=== PATIENT | male | born 1940 | race Caucasian/White ===

== ENCOUNTER 2023-05-07 15:56 | Inpatient (IN) ==
--- NOTE | 2023-05-07 16:04 | ED Triage Note ---
Date of Service May 07, 2023 History of Present Illness This patient was briefly evaluated while in triage. An abbreviated physical exam was performed. This patient is a 82-year-old Male who presents to the ED for evaluation of inability to see out of his right eye. He was seen at the [place] [facility], and re ferred to the emergency department to rule out CVA. The patient reports that he did have pinkeye last week, and has been taking eyedrops as prescribed. The patient reports fatigue. He denies any weakness of the right side of his body, difficulty with swallowing or speech. Physical Exam CONSTITUTIONAL: Healthy and well nourished. Patient does not appear in any acute distress. Alert and oriented x3. GCS 15 HEENT: Examination of the eyes does not show any conjunctival injection. Pupils are sluggish to light, but equal in appearance. Patient has a disconjugate gaze that the patient reports is baseline. RESPIRATORY: Clear to auscultation bilaterally with no wheezing, crackles, rhonchi or stridor. CARDIOVASCULAR: Regular rate and rhythm with no murmurs, rubs or gallops. INTEGUMENTARY: No rash or other significant dermatologic conditions noted. HEMATOLOGIC: No ecchymosis or petechiae. PSYCHIATRIC: Positive affect. NEUROLOGIC: No focal neurologic deficits noted. Initial orders for labs and / or imaging were placed and patient was placed in the waiting area until a bed is available. Please see further documentation for the full ED course.
[2023-05-07 17:06] LABS: Basophils # (auto) 0.03 K/uL (0.00-0.20); Basophils % (auto) 0.3 %; Eosinophils # (auto) 0.13 K/uL (0.00-0.50); Eosinophils % (auto) 1.5 %; Hematocrit (blood only) 34.6 % (42.0-52.0); Hemoglobin 11.6 g/dl (14.0-18.0); Immature Granulocytes # (auto) 0.09 K/uL (0.01-0.20); Lymphocytes # (auto) 0.92 K/uL (1.20-3.40); Lymphocytes % (auto) 10.5 %; Mean Corpuscular Hemoglobin 29.2 pg (25.0-34.0); Mean Corpuscular Hgb Conc 33.5 g/dL (32.0-36.0); Mean Corpuscular Volume 87.2 fL (80.0-100.0); Mean Platelet Volume 8.9 fL (9.4-12.4); Monocytes # (auto) 0.27 K/uL (0.11-0.59); Monocytes % (auto) 3.1 %; Neutrophils # (auto) 7.34 K/uL (1.40-6.50); Neutrophils % (auto) 83.6 %; Platelet Count 434 K/uL (130-400); RDW Coefficient of Variation 14.9 % (11.5-14.5); RDW Standard Deviation 47.7 fL (36.4-46.3); Red Blood Count 3.97 M/uL (4.70-6.10); White Blood Count 8.78 K/ul (4.8-10.8)
--- NOTE | 2023-05-07 17:10 | CT Scan Report ---
CT SCAN OF THE BRAIN WITHOUT IV CONTRAST CLINICAL HISTORY: Right-sided visual disturbances. COMPARISON STUDY: No priors. TECHNIQUE: Unenhanced axial CT scan of the brain is performed from the vertex to the skull base. A do se lowering technique was utilized adhering to the principles of ALARA. CT DOSE: 625.80 mGy.cm FINDINGS: Brain parenchyma: There is age-related involutional change noting mild to moderate subcortical and pe riventricular microangiopathic disease. There is no hemorrhage, mass effect, or evidence of acute ter ritorial ischemia by CT criteria. Reyes-white matter differentiation is preserved. No extra-axial flui d collection is seen. Ventricles, sulci, cisterns: Prominent secondary to involutional change. Intracranial vasculature: There is atherosclerotic calcification of the cavernous carotid and vertebr al arteries. Calvarium: Unremarkable. Sinuses and mastoids: The visualized paranasal sinuses are clear. The mastoid air cells are well pneu matized. Orbits: The bony orbits are grossly intact. Soft tissues: Soft tissue calcifications are noted in both ears. IMPRESSION: There is no hemorrhage, mass effect, or evidence of acute territorial ischemia by CT tahmina duran. ACT 112: Negative or not required by law. Electronically signed by: Fabiano Lombardo M.D. 05/07/2023 5:07 PM
[2023-05-07 17:13] LABS: Albumin Globulin Ratio 0.9 (0.9-2); Albumin Level 3.7 gm/dl (3.4-5.0); BUN Creatinine Ratio 21.3 (10-20); Bilirubin,Total 0.4 mg/dl (0.2-1.0); Creatinine Clr Calc Pharmacy 60.3 ml/min; Est GFR (African American) 97.1 ml/min; Est GFR (Non-African American) 83.8 ml/min; Globulin 4.2 gm/dl (2.5-4.0); Potassium 4.4 mmol/L (3.5-5.1); Total Protein 7.9 gm/dl (6.0-8.3)
[2023-05-07 17:19] LABS: Troponin I High Sensitivity 14.3 pg/ml (0-20)
[2023-05-07 17:27] LABS: Prothrombin Time 11.4 Seconds (9.0-12.0)
--- NOTE | 2023-05-07 18:16 | XRay Report ---
XR chest 1V portable CLINICAL HISTORY: Visual disturbance COMPARISON STUDY: No previous studies for comparison. FINDINGS: Lung volumes are normal. Lungs are clear. There is no pneumothorax or pleural effusion. Car diac size is normal. There is mild prominence for the contour of the ascending aorta. There is no ned dence for pulmonary edema. Multiple old, healed left rib fractures are incidentally noted. IMPRESSION: No acute cardiopulmonary findings. ACT 112: Negative or not required by law. Electronically signed by: Humberto Garza M.D. 05/07/2023 6:15 PM
[2023-05-07 18:20] LABS: Lyme Ab IgG w/WB Rflx Positive (Negative); Lyme Ab IgM w/WB Rflx Positive (Negative)
[2023-05-07] MEDS ORDERED: SODIUM CHLORIDE 0.9% 500 ML IV ONE (20:31)
[2023-05-07 20:51] LABS: Magnesium 2.2 mg/dl (1.7-2.4)
[2023-05-07] MEDS ORDERED: IOVERSOL 350 MG 125mL Prefilled Syringe IV ONE (21:45)
--- NOTE | 2023-05-07 21:58 | CT Scan Report ---
Exam(s): CTA HEAD With Contrast EXAM: CT Angiography Head With Intravenous Contrast CLINICAL HISTORY: Reason for exam: two weeks of vision change, r/o cva. TECHNIQUE: Axial computed tomographic angiography images of the head with intravenous contrast. CTDI is 11.56 mGy and DLP is 422.43 mGy-cm. Automated exposure control was utilized for the study. A dose lowering technique was utilized adhering to the principles of ALARA. MIP reconstructed images were created and reviewed. CONTRAST: Contrast must be dictated COMPARISON: No relevant prior studies available. FINDINGS: Right internal carotid artery: No acute findings. Intracranial segment is patent with no significant stenosis. No aneurysm. 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 No occlusion or significant stenosis. Right middle cerebral artery: Unremarkable. No occlusion or significant stenosis. No aneurysm. Right posterior cerebral artery: Unremarkable. No occlusion or significant stenosis. No aneurysm. Right vertebral artery: Unremarkable as visualized. Left internal carotid artery: No acute findings. Intracranial segment is patent with no significant stenosis. No aneurysm. Left anterior cerebral artery: See above. Left middle cerebral artery: Unremarkable. No occlusion or significant stenosis. No aneurysm. Left posterior cerebral artery: Unremarkable. No occlusion or significant stenosis. No aneurysm. Left vertebral artery: Unremarkable as visualized. Basilar artery: Unremarkable. No occlusion or significant stenosis. No aneurysm. 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 No large vessel occlusion. Electronically signed by: Yazan De Luna MD 05/07/23 21:57 PM
--- NOTE | 2023-05-07 22:15 | CT Scan Report ---
Exam(s): CTA NECK With Contrast IV Amt: 116 optiray 350 EXAM: CT Angiography Neck With Intravenous Contrast CLINICAL HISTORY: Reason for exam: two weeks of vision change, r/o cva. TECHNIQUE: Routine carotid CT angiography protocol was performed with intravenous contrast. NASCET criteria using the distal ICAs for comparison were used for evaluation of stenoses. CTDI is 11.56 mGy and DLP is 422.43 mGy-cm. Automated exposure control was utilized for the study. A dose lowering technique was utilized adhering to the principles of ALARA. MIP reconstructed images were created and reviewed. CONTRAST: Patient received 116 optiray 350 of IV contrast COMPARISON: None. FINDINGS: Right common carotid artery: Patent. Right internal carotid artery: Patent. Right vertebral artery: Patent. Left common carotid artery: Patent. Left internal carotid artery: Patent. Left vertebral artery: Patent. Codominant. Other: Mild to moderate atherosclerosis bilateral carotid bifurcation, without significant stenosis. Large ulcerative (high risk) atherosclerotic plaque of the aortic arch, after the subclavian origin. Aorta is incompletely evaluated. IMPRESSION: 1. No dissection, occlusion, or significant stenosis. 2. 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 CAROTID STENOSIS REFERENCE USING NASCET CRITERIA: % ICA stenosis = (1 - narrowest ICA diameter/diameter of distal cervical ICA) x 100. Mild - <50% stenosis. Moderate - 50-69% stenosis. Severe - 70-94% stenosis. Near occlusion - 95-99% stenosis. Occluded - 100% stenosis. Electronically signed by: Kalli Kraus M.D. 05/07/23 22:14 PM
[2023-05-07] MEDS ORDERED: cefTRIAXone SODIUM 2,000 MG/70 ML BAG IV STA (22:31)
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
[2023-05-08] MEDS ORDERED: NITROGLYCERIN SL 0.4 MG/TAB TAB SL PRN (01:24)
[2023-05-08] MEDS ORDERED: PHARMACIST DISCHARGE MED REC CONSULT PRN (01:24)
[2023-05-08] MEDS ORDERED: POLYETHYLENE (MIRALAX) 17 GM PACK PO PRN (01:24)
[2023-05-08] MEDS ORDERED: ACETAMINOPHEN 325 MG TAB PO PRN (01:24)
[2023-05-08] MEDS ORDERED: ASPIRIN 81 MG CHEW PO ONE (01:24)
[2023-05-08] MEDS ORDERED: SODIUM CHLORIDE 0.9% 1,000 ML IV SCH (01:24)
--- NOTE | 2023-05-08 03:52 | Emergency Department Note ---
Impression & Plan Cranial nerve III palsy, partial, right, Dysconjugate gaze, Lyme disease ED Provider Note NAME: ENA KANG AGE: 82 SEX: M ARRIVES VIA: Walk-In INFORMANT: Patient ED PROVIDER(S): Fransisco Crowder MD CHIEF COMPLAINT: Vision changes referred PLAN: Disposition: Admit MEDICAL DECISION MAKING: The patient is a pleasant 82-year-old gentleman who presents to the emergency department via walk-in for evaluation of vision changes that he reports has been ongoing for the past 2 weeks. He reports he was seen by his [facility] providers around 2 weeks ago as well for redness in his eyes and was given eyedrops though he is not exactly sure what for. He reports since then he has had new and worsening vision symptoms where he feels when he is driving he feels the cars in the opposing abel or coming into his abel but notices that if he is to cover 1 eye or the other this resolves. Thus he has been attempting to drive with 1 eye closed. He did contact his [facility] providers regarding his symptoms and was referred to emergency department for evaluation to exclude a stroke. He otherwise denies any headache, nausea, vomiting, cough, congestion, chest pain, shortness of b reath symptoms otherwise. The patient is a poor historian regarding his medical history and recent symptoms. He lives by himself. He denies any chronic medical conditions requiring medications. Of note, the patient did arrive to emergency department during time of high volume, acuity and prolonged emergency department waiting times. Critical pathways initiated from triage. On my evaluation the patient is no acute distress, afebrile with heart in the 100s and vital signs otherwise stable. He appears clinically dry. He has a notable disconjugate gaze where it is apparent that the patient has a right eye 3rd nerve palsy where he is only able to perform right lateral and somewhat inferior lateral gaze. He has mild ptosis which he reports is chronic. Otherwise the patient has no facial droop nor extremity weakness. EKG without overt acute ischemia. CXR negative for acute cardiopulmonary process. WBC within normal limits. H/H 11.6/34.6 without prior values for comparison. Platelets 434K also nonspecific and without prior values for comparison. Chemistry without metabolic acidosis. BUN/creatinine 21, consistent with patient's clinical dry appearance. Electrolytes and LFTs are unremarkable. High-sensitivity troponin 14.3, within normal limits. Anaplasma and Babesia smear were negative with DNA testing pending. Lyme screen was performed and was positive for IgM and IgG antibodies. CT of the head was negative for acute abnormalities. 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 Additional note is made of atherosclerotic plaque of the posterior aortic arch which is incidental. CT findings were reviewed with stat rad radiology and confirms that AComm aneurysm also is incidental related to the patient's 3rd nerve palsy on exam as this would not be located in a region to cause compression. A PComm aneurysm, which is an area that could cause this is not present. Thus, suspect the patient's 3rd nerve palsy is secondary to Lyme disease infection. However reasonable to proceed with admission for further evaluation. Treatment was initiated with IV ceftriaxone. [facility] will [facility] the patient for admission. Triage Nursing notes reviewed and agree them. Prior/outside medical records reviewed Vital Signs: reviewed Differential diagnosis: Infection, dehydration, metabolic abnormality, hypo/hyperglycemia, electrolyte disturbance, anemia, hypoxia, cardiac sources, intracerebral event, toxicologic, neurologic, as well as other pathologies. ER treatment provided: See below. Diagnostics interpreted by me: ECG: Normal sinus rhythm, 94 bpm, no ectopy, no overt ST elevation or depression, QTc 467, QRS 106 Cardiac Monitoring: An order for continuous cardiac monitoring was placed and demonstrated Normal sinus rhythm, 94 bpm, no ectopy. Laboratory studies: See below Imaging studies: See below Consultation(s): [facility] who will evaluate the patient for admission. HPI: The patient is a pleasant 82-year-old gentleman who presents to the emergency department via walk-in for evaluation of vision changes that he reports has been ongoing for the past 2 weeks. He reports he was seen by his [facility] providers around 2 weeks ago as well for redness in his eyes and was given eyedrops though he is not exactly sure what for. He reports since then he has had new and worsening vision symptoms where he feels when he is driving he feels the cars in the opposing abel or coming into his abel but notices that if he is to cover 1 eye or the other this resolves. Thus he has been attempting to drive with 1 eye closed. He did contact his [facility] providers regarding his symptoms and was referred to emergency department for evaluation to exclude a stroke. He otherwise denies any headache, nausea, vomiting, cough, congestion, chest pain, shortness of breath symptoms otherwise. The patient is a poor historian regarding his medical history and recent symptoms. He lives by himself. He denies any chronic medical conditions requiring medications. ROS: See above HPI for pertinent positives & negatives. A total of 10 systems reviewed and were otherwise negative. VITALS:See Below PHYSICAL EXAMINATION: GENERAL: Awake, alert, well-appearing, in no distress HENT: Normocephalic, atraumatic. Oropharynx with dry mucous membranes and otherwise unremarkable. EYES: Normal conjunctiva. Sclera non-icteric. NECK: Supple. No nuchal rigidity. FROM. No JVD. RESPIRATORY: Clear to auscultation. CARDIAC: Regular rate, normal rhythm. Extremities warm and well perfused. Pulses equal. ABDOMEN: Soft, non-distended. No tenderness to palpation. No rebound or guarding. No masses. RECTAL: Deferred. MUSCULOSKELETAL: Chest examination reveals no tenderness. The back is symme trical on inspection without obvious abnormality. There is no CVA tenderness to palpation. No joint edema. LOWER EXTREMITIES: Calves are equal size bilaterally and non-tender. No edema. No discoloration. NEURO: Notable disconjugate gaze where it is apparent that the patient has a right eye 3rd nerve palsy where he is only able to perform right lateral and somewhat inferior lateral gaze. He has mild ptosis which he reports is chronic. Otherwise the patient has no facial droop nor extremity weakness. 5/5 strength and SILT x 4 extremities. Cerebellar function intact including [id number], alternating palms, [id number]. SKIN: No rash or jaundice noted. Fransisco Crowder MD Past Med/Surg History Medical History Eye problems Social History Smoking Status: Former smoker Tobacco Type: Cigarettes Hx Alcohol Use: No Hx Substance Use: No Preferred Language: Serbian Communication Ability: Effective Technologist Infectious Disease Required: No Beliefs That Will Affect Care: None Current Living Situation: Alone Other Information That Helps Us Care for You: No Feels Safe at Home: Yes Safety Concerns: Feels Safe At This Time Assistive Devices: Cane, Denture - Upper, Denture - Lower and Glasses Allergies Allergies Allergy/AdvReac Type Severity Reaction Status Date / Time pollen extracts Allergy Intermediate SNEEZING, Verified 05/07/23 20:38 CONGESTION Home Meds Home Medications Medication Instructions Recorded Confirmed Multiple Suppliments 1 dose PO DAILY 05/07/23 05/07/23 ofloxacin 0.3 % eye drops 2 drp OPR QID 05/07/23 05/07/23 Results & Data (ED) Vital Signs Vital Signs - 24 hr 05/07/23 15:59 05/07/23 20:04 05/07/23 21:00 Pulse Rate 101 H Pulse Rate [Finger] 80 Respiratory Rate 19 20 Respiratory Effort / Characteristics Non-Labored Spontaneous Non-Labored Spontaneous Respiratory Depth Normal Normal Blood Pressure 124/71 Blood Pressure [Right Arm] 172/115 H Blood Pressure Mean 88 Blood Pressure Mean [Right Arm] 134 Blood Pressure Position [Right Arm] Pulse Oximetry 98 97 Oxygen Delivery Method Room Air Room Air Room Air Sepsis Recent Fever Within 48 Hours No Sepsis New/Unexplained Change in Mental Status No Sepsis Action Taken by Nursing No Action Required 05/07/23 23:09 Pulse Rate Pulse Rate [Finger] 87 Respiratory Rate 16 Respiratory Effort / Characteristics Non-Labored Spontaneous Respiratory Depth Normal Blood Pressure Blood Pressure [Right Arm] 135/90 Blood Pressure Mean Blood Pressure Mean [Right Arm] 105 Blood Pressure Position [Right Arm] Lying Pulse Oximetry 96 Oxygen Delivery Method Room Air Sepsis Recent Fever Within 48 Hours Sepsis New/Unexplained Change in Mental Status Sepsis Action Taken by Nursing Laboratory Data Attestation: I reviewed the patient's lab results. 05/07/23 16:14 05/07/23 16:14 Lab Results 05/07/23 05/07/23 05/07/23 Range/Units 16:14 16:14 16:14 WBC 8.78 (4.8-10.8) K/ul RBC 3.97 L (4.70-6.10) M/uL Hgb 11.6 L (14.0-18.0) g/dl Hct 34.6 L (42.0-52.0) % MCV 87.2 (80.0-100.0) fL MCH 29.2 (25.0-34.0) pg MCHC 33.5 (32.0-36.0) g/dL RDW Std Deviation 47.7 H (36.4-46.3) fL RDW Coeff of Emerson 14.9 H (11.5-14.5) % Plt Count 434 H (130-400) K/uL MPV 8.9 L (9.4-12.4) fL Immature Gran % (Auto) 1.0 % Neut % (Auto) 83.6 % Lymph % (Auto) 10.5 % Desha % (Auto) 3.1 % Eos % (Auto) 1.5 % Baso % (Auto) 0.3 % Neut # (Auto) 7.34 H (1.40-6.50) K/uL Lymph # (Auto) 0.92 L (1.20-3.40) K/uL Desha # (Auto) 0.27 (0.11-0.59) K/uL Eos # (Auto) 0.13 (0.00-0.50) K/uL Baso # (Auto) 0.03 (0.00-0.20) K/uL Immature Gran # (Auto) 0.09 (0.01-0.20) K/uL PT 11.4 (9.0-12.0) Seconds INR 1.0 (0.9-1.1) Sodium (136-145) mmol/L Potassium (3.5-5.1) mmol/L Chloride (98-107) mmol/L Carbon Dioxide (21-32) mmol/L Anion Gap (3-11) BUN (6-23) mg/dl Creatinine (0.6-1.4) mg/dl Est Cr Clr Drug Dosing ml/min Est GFR ( Amer) ml/min Est GFR (Non-Af Amer) ml/min BUN/Creatinine Ratio (10-20) Glucose (70-99(Fasting)) mg/dl Calcium (8.6-10.3) mg/dl Phosphorus (2.5-4.9) mg/dl Magnesium (1.7-2.4) mg/dl Total Bilirubin (0.2-1.0) mg/dl AST (13-39) U/L ALT (7-52) U/L Alkaline Phosphatase (34-104) U/L Troponin I High Sens (0-20) pg/ml Total Protein (6.0-8.3) gm/dl Albumin (3.4-5.0) gm/dl Globulin (2.5-4.0) gm/dl Albumin/Globulin Ratio (0.9-2) Anaplasma Smear See Comment Babesia Smear See Comment Lyme Disease IgG Ab Positive A (Negative) Lyme Disease IgM Ab Positive A (Negative) 05/07/23 Range/Units 16:14 WBC (4.8-10.8) K/ul RBC (4.70-6.10) M/uL Hgb (14.0-18.0) g/dl Hct (42.0-52.0) % MCV (80.0-100.0) fL MCH (25.0-34.0) pg MCHC (32.0-36.0) g/dL RDW Std Deviation (36.4-46.3) fL RDW Coeff of Emerson (11.5-14.5) % Plt Count (130-400) K/uL MPV (9.4-12.4) fL Immature Gran % (Auto) % Neut % (Auto) % Lymph % (Auto) % Desha % (Auto) % Eos % (Auto) % Baso % (Auto) % Neut # (Auto) (1.40-6.50) K/uL Lymph # (Auto) (1.20-3.40) K/uL Desha # (Auto) (0.11-0.59) K/uL Eos # (Auto) (0.00-0.50) K/uL Baso # (Auto) (0.00-0.20) K/uL Immature Gran # (Auto) (0.01-0.20) K/uL PT (9.0-12.0) Seconds INR (0.9-1.1) Sodium 134 L (136-145) mmol/L Potassium 4.4 (3.5-5.1) mmol/L Chloride 100 (98-107) mmol/L Carbon Dioxide 26 (21-32) mmol/L Anion Gap 8 (3-11) BUN 17 (6-23) mg/dl Creatinine 0.80 (0.6-1.4) mg/dl Est Cr Clr Drug Dosing 60.3 ml/min Est GFR ( Amer) 97.1 ml/min Est GFR (Non-Af Amer) 83.8 ml/min BUN/Creatinine Ratio 21.3 H (10-20) Glucose 100 H (70-99(Fasting)) mg/dl Calcium 10.0 (8.6-10.3) mg/dl Phosphorus 3.0 (2.5-4.9) mg/dl Magnesium 2.2 (1.7-2.4) mg/dl Total Bilirubin 0.4 (0.2-1.0) mg/dl AST 18 (13-39) U/L ALT 16 (7-52) U/L Alkaline Phosphatase 76 (34-104) U/L Troponin I High Sens 14.3 (0-20) pg/ml Total Protein 7.9 (6.0-8.3) gm/dl Albumin 3.7 (3.4-5.0) gm/dl Globulin 4.2 H (2.5-4.0) gm/dl Albumin/Globulin Ratio 0.9 (0.9-2) Anaplasma Smear Babesia Smear Lyme Disease IgG Ab (Negative) Lyme Disease IgM Ab (Negative) Administered Medications Sodium Chloride (Nss 1000ml) 1,000 mls @ 80 mls/hr IV .[id number] SONIA Stop: 05/08/23 13:53 Last Admin: 05/08/23 01:46 Dose: 80 mls/hr Documented By: VITALIY Discontinued Medications Aspirin (Aspirin 81 Mg Chew) 324 mg PO NOW ONE Stop: 05/08/23 01:25 Last Admin: 05/08/23 02:11 Dose: 324 mg Documented By: VITALIY Sodium Chloride (Nss) 500 mls @ 999 mls/hr IV .Q31M ONE Stop: 05/07/23 21:01 Last Infusion: 05/07/23 22:54 Dose: 0 mls/hr Documented By: Admin: 05/07/23 20:52 Dose: 999 mls/hr Documented By: WENDY Ceftriaxone Sodium (Rocephin) 2,000 mg in 70 mls @ 140 mls/hr IV NOW STA Stop: 05/07/23 23:00 Last Infusion: 05/07/23 23:39 Dose: 0 mls/hr Documented By: Admin: 05/07/23 23:06 Dose: 140 mls/hr Documented By: ORALIA Ioversol (Ioversol 350 Mg 125ml Prefilled Syringe) 116 ml IV ONCE ONE Stop: 05/07/23 21:46 Last Admin: 05/07/23 21:45 Dose: 116 ml Documented By: MINA Imaging Data Radiologist's Impression: Head CT 05/07/23 16:05 CT SCAN OF THE BRAIN WITHOUT IV CONTRAST CLINICAL HISTORY: Right-sided visual disturbances. COMPARISON STUDY: No priors. TECHNIQUE: Unenhanced axial CT scan of the brain is performed from the vertex to the skull base. A dose lowering technique was utilized adhering to the principles of ALARA. CT DOSE: 625.80 mGy.cm FINDINGS: Brain parenchyma: There is age-related involutional change noting mild to moderate subcortical and periventricular microangiopathic disease. There is no hemorrhage, mass effect, or evidence of acute territorial ischemia by CT criteria. Reyes-white matter differentiation is preserved. No extra-axial fluid collection is seen. Ventricles, sulci, cisterns: Prominent secondary to involutional change. Intracranial vasculature: There is atherosclerotic calcification of the cavernous carotid and vertebral arteries. Calvarium: Unremarkable. Sinuses and mastoids: The visualized paranasal sinuses are clear. The mastoid air cells are well pneumatized. Orbits: The bony orbits are grossly intact. Soft tissues: Soft tissue calcifications are noted in both ears. IMPRESSION: There is no hemorrhage, mass effect, or evidence of acute territorial ischemia by CT criteria. ACT 112: Negative or not required by law. Electronically signed by: Fabiano Lombardo M.D. 05/07/2023 5:07 PM Chest X-Ray 05/07/23 16:06 XR chest 1V portable CLINICAL HISTORY: Visual disturbance COMPARISON STUDY: No previous studies for comparison. FINDINGS: Lung volumes are normal. Lungs are clear. There is no pneumothorax or pleural effusion. Cardiac size is normal. There is mild prominence for the co ntour of the ascending aorta. There is no evidence for pulmonary edema. Multiple old, healed left rib fractures are incidentally noted. IMPRESSION: No acute cardiopulmonary findings. ACT 112: Negative or not required by law. Electronically signed by: Humberto Garza M.D. 05/07/2023 6:15 PM Head CTA 05/07/23 20:46 Exam(s): CTA HEAD With Contrast EXAM: CT Angiography Head With Intravenous Contrast CLINICAL HISTORY: Reason for exam: two weeks of vision change, r/o cva. TECHNIQUE: Axial computed tomographic angiography images of the head with intravenous contrast. CTDI is 11.56 mGy and DLP is 422.43 mGy-cm. Automated exposure control was utilized for the study. A dose lowering technique was utilized adhering to the principles of ALARA. MIP reconstructed images were created and reviewed. CONTRAST: Contrast must be dictated COMPARISON: No relevant prior studies available. FINDINGS: Right internal carotid artery: No acute findings. Intracranial segment is patent with no significant stenosis. No aneurysm. 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 No occlusion or significant stenosis. Right middle cerebral artery: Unremarkable. No occlusion or significant stenosis. No aneurysm. Right posterior cerebral artery: Unremarkable. No occlusion or significant stenosis. No aneurysm. Right vertebral artery: Unremarkable as visualized. Left internal carotid artery: No acute findings. Intracranial segment is patent with no significant stenosis. No aneurysm. Left anterior cerebral artery: See above. Left middle cerebral artery: Unremarkable. No occlusion or significant stenosis. No aneurysm. Left posterior cerebral artery: Unremarkable. No occlusion or significant stenosis. No aneurysm. Left vertebral artery: Unremarkable as visualized. Basilar artery: Unremarkable. No occlusion or significant stenosis. No aneurysm. 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 No large vessel occlusion. Electronically signed by: Yazan De Luna MD 05/07/23 21:57 PM Neck CTA 05/07/23 20:46 Exam(s): CTA NECK With Contrast IV Amt: 116 optiray 350 EXAM: CT Angiography Neck With Intravenous Contrast CLINICAL HISTORY: Reason for exam: two weeks of vision change, r/o cva. TECHNIQUE: Routine carotid CT angiography protocol was performed with intravenous contrast. NASCET criteria using the distal ICAs for comparison were used for evaluation of stenoses. CTDI is 11.56 mGy and DLP is 422.43 mGy-cm. Automated exposure control was utilized for the study. A dose lowering technique was utilized adhering to the principles of ALARA. MIP reconstructed images were created and reviewed. CONTRAST: Patient received 116 optiray 350 of IV contrast COMPARISON: None. FINDINGS: Right common carotid artery: Patent. Right internal carotid artery: Patent. Right vertebral artery: Patent. Left common carotid artery: Patent. Left internal carotid artery: Patent. Left vertebral artery: Patent. Codominant. Other: Mild to moderate atherosclerosis bilateral carotid bifurcation, without significant stenosis. Large ulcerative (high risk) atherosclerotic plaque of the aortic arch, after the subclavian origin. Aorta is incompletely evaluated. IMPRESSION: 1. No dissection, occlusion, or significant stenosis. 2. 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 CAROTID STENOSIS REFERENCE USING NASCET CRITERIA: % ICA stenosis = (1 - narrowest ICA diameter/diameter of distal cervical ICA) x 100. Mild - <50% stenosis. Moderate - 50-69% stenosis. Severe - 70-94% stenosis. Near occlusion - 95-99% stenosis. Occluded - 100% stenosis. Electronically signed by: Kalli Kraus M.D. 05/07/23 22:14 PM Discharge Plan Visit Data Chief Complaint: Eye Problems Stated Complaint: EYE ISSUES ED Provider: Fransisco Crowder Discharge Problem: Cranial nerve III palsy, partial, right, Dysconjugate gaze, Lyme disease Patient Disposition: Admitted As Inpatient Discharge Instructions Interventions: ED Discharge Assessment Last Done: 05/08/23 00:50
[2023-05-08 06:36] LABS: Basophils # (auto) 0.04 K/uL (0.00-0.20); Basophils % (auto) 0.5 %; Eosinophils # (auto) 0.23 K/uL (0.00-0.50); Eosinophils % (auto) 2.7 %; Hematocrit (blood only) 33.6 % (42.0-52.0); Hemoglobin 10.8 g/dl (14.0-18.0); Immature Granulocytes # (auto) 0.08 K/uL (0.01-0.20); Immature Granulocytes % (auto) 0.9 %; Lymphocytes # (auto) 0.73 K/uL (1.20-3.40); Lymphocytes % (auto) 8.6 %; Mean Corpuscular Hemoglobin 28.7 pg (25.0-34.0); Mean Corpuscular Hgb Conc 32.1 g/dL (32.0-36.0); Mean Corpuscular Volume 89.4 fL (80.0-100.0); Mean Platelet Volume 8.7 fL (9.4-12.4); Monocytes # (auto) 0.24 K/uL (0.11-0.59); Monocytes % (auto) 2.8 %; Neutrophils # (auto) 7.13 K/uL (1.40-6.50); Neutrophils % (auto) 84.5 %; Platelet Count 343 K/uL (130-400); RDW Coefficient of Variation 14.9 % (11.5-14.5); RDW Standard Deviation 48.3 fL (36.4-46.3); Red Blood Count 3.76 M/uL (4.70-6.10); White Blood Count 8.45 K/ul (4.8-10.8)
[2023-05-08] MEDS ORDERED: GADOBUTROL 65ML VIAL IV ONE (06:45)
[2023-05-08 06:57] LABS: BUN Creatinine Ratio 17.7 (10-20); Calcium 9.1 mg/dl (8.6-10.3); Chol HDL Ratio 4.8 (0-5); Creatinine Clr Calc Pharmacy 68.6 ml/min; Est GFR (African American) 97.6 ml/min; Est GFR (Non-African American) 84.2 ml/min; Potassium 3.8 mmol/L (3.5-5.1)
[2023-05-08 07:15] LABS: Estimated Average Glucose 157 mg/dl; Hemoglobin A1C 7.1 % (4.5-5.6)
--- NOTE | 2023-05-08 07:39 | Magnetic Resonance Report ---
MRI OF THE BRAIN COMBO CLINICAL HISTORY: Strokelike symptoms. Left-sided visual disturbances. COMPARISON STUDY: CT of the brain dated 05/07/2023. TECHNIQUE: MRI of the brain was performed utilizing various T1 and T2-weighted sequences in the axial , sagittal, and coronal planes. Contrast-enhanced sequences were acquired following the administratio n of 7.5 cc of Gadavist. FINDINGS: Brain parenchyma: There is age-related involutional change noting mild subcortical and periventricula r microangiopathic disease. There is no hemorrhage or mass effect. There is no restricted diffusion t o suggest acute ischemia. No enhancing mass lesion is identified on the postcontrast images. Reyes-whi te matter differentiation is preserved. No extra-axial fluid collection is seen. The cerebellar tonsi ls are normal in configuration. Ventricles, sulci, and cisterns: Prominent secondary to involutional change. Pituitary and sella: Partially empty sella is incidentally noted. Intracranial vasculature: Normal flow voids are maintained at the skull base. Orbits: The bony orbits are grossly intact. Orbital contents are normal in appearance. Sinuses and mastoids: Clear. Calvarium: Unremarkable. Cervical cord: Partially visualized cervical spinal cord is normal in morphology and signal intensity . IMPRESSION: No acute intracranial abnormality. ACT 112: Negative or not required by law. Electronically signed by: Fabiano Lombardo M.D. 05/08/2023 7:37 AM
[2023-05-08] MEDS: ASPIRIN 81 MG ECTAB PO SCH (08:39)
[2023-05-08] MEDS ORDERED: DOXYCYCLINE HYCLATE 100 MG CAP PO SCH (09:00)
--- NOTE | 2023-05-08 09:15 | Neurology Consultation ---
Date of Consultation May 08, 2023 Assessment & Plan (1) Cranial nerve III palsy, partial, right: (2) Dysconjugate gaze: (3) Lyme disease: Plan Patient has a subacute onset of dysconjugate gaze and eye issues including blurry vision left greater than right side. On examination he seems to have a partial right 3rd nerve palsy with some very mild ptosis. I am not convinced there is any miosis. It is painless. The patient has some alternating exotropia and I am not convinced his eye problems are simply a pure 3rd nerve palsy. Patient has a positive Lyme antibody titer and MRI of the brain does not show an obvious stroke. Certainly his presentation would fit with a small brainstem (constanza) stroke but Lyme disease could do this as well. 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 He has other risk factors for stroke including hypertension and a remote history of cigarette smoking. I reviewed the CT angiography with Dr. Garza radiology, and this aneurysm is less than 3 mm. Recommendations: 1. Continue treatment for Lyme disease with IV ceftriaxone 2 g daily . He could be switched to doxycycline for 3-4 weeks after his inpatient stay (or he can be given a PICC line and given 1 month of IV Rocephin. 2. In lieu of the small-vessel ischemic disease, consider initiation of 81 mg aspirin tablet daily. 3. Control blood pressure as you are doing, aiming for a mean arterial pressure of 95-100. 4. There is no indication for a statin in this patient as his lipid parameters are quite normal. 5. Consider patching the eye and no driving until cleared by Ophthalmology. 6. There is no indication for a surgical opinion regarding this tiny incidental aneurysm. Overall, I spent a total of 90 minutes with this case including review of records, review of MRI films, direct evaluation the patient at bedside, report generation, and discussion of the case with the patient and RN at bedside, Dr. Garza radiology, and Dr. Vee, including differential diagnosis and treatment options. History of Present Illness Reason for Consultation: Patient is an 82-year-old, who I was asked to see the request of Dr. Mehta, for neurologic consultation regarding recent onset vision problems. Requesting Physician: Dr. Mehta Attending Physician: Valente Vee MD History of Present Illness This patient has no history of hypertension, diabetes, dyslipidemia, or heart disease. He has been doing fairly well, living by himself on no prescription medication. About 2 weeks ago he noted redness in his right eye. Eventually saw a physician [facility] who gave him eyedrops. This cleared the redness. In addition, he was having blurry vision in both eyes although the blurry vision cleared in the right eye eventually. More recently he started noticing the line moving on the road (to the right) when he was driving, or that the car and the opposite abel was moving in towards his abel. When he covered his left eye (he would not cover his right eye because the left eye was blurry) the movement of the environment ceased and he could see clearly. He did not describe any overt double vision (until admission when he noted the TV was double). The patient denies any eye pain, headache, fever, dizziness, weakness or numbness in the arms and legs, joint pain, swelling, or rashes. He arrived to the emergency room on May 07 at 3:59 p.m. a blood pressure of 124/71 (later 172/115). Pulse was 101 and respiratory rate 19, O2 saturation 98% he was afebrile. In the emergency room he was noted to have dysconjugate gaze and they diagnosed her right 3rd nerve palsy. There was questionable ptosis of the right eye. Otherwise the rest of his physical exam was largely unremarkable. CBC showed mild anemia and Chem profile was unremarkable. CT scan of the head was unremarkable. Chest x-ray was unremarkable. CT angiography of the head showed a anterior communicating artery aneurysm (2.7 x 3.2). CT angiography of the neck showed no significant stenoses or anomalies but the aortic arch showed a large old serrated plaque. MRI of the brain showed no acute stroke. There was a mild to moderate generalized atrophy present and [id number] old small-vessel ischemic disease. I questioned a pontine stroke but this was not entirely clear on reviewing the films. Lyme antibody titers were positive and Western blot is pending. CBC shows anemia, hemoglobin A1c 7.1, triglycerides 78 total cholesterol 106 Allergies Allergy/AdvReac Type Severity Reaction Status Date / Time pollen extracts Allergy Intermediate SNEEZING, Verified 05/07/23 20:38 CONGESTION Home Medications Medication Instructions Recorded Confirmed Type Multiple Suppliments 1 dose PO DAILY 05/07/23 05/07/23 History ofloxacin 0.3 % eye drops 2 drp OPR QID 05/07/23 05/07/23 History Patient History Medical History Eye problems Surgical History (Updated 05/08/23 @ 09:02 by Mayito López MD) History of hernia repair Social History (Updated 05/08/23 @ 09:03 by Mayito López MD) Smoking Status: Former smoker Tobacco Type: Cigarettes Age Quit Using Tobacco: 70; Hx Alcohol Use: No Hx Substance Use: No Preferred Language: Martiniquais Communication Ability: Effective Cheesemaker Helper Required: No Beliefs That Will Affect Care: None Current Living Situation: Alone Feels Safe at Home: Yes Assistive Devices: Cane, Denture - Upper, Denture - Lower and Glasses Review of Systems Constitutional: no fever, no fatigue and no weakness Eyes: + diplopia and + worsening vision; no eye pain Ear, Nose, Mouth, Throat: no ear pain, no tinnitus, no hearing loss, no dizziness, no snoring, no hoarseness and no dysphagia Respiratory: no cough and no dyspnea Cardiovascular: no chest pain, no palpitations and no lightheadedness Gastrointestinal: no abdominal pain, no nausea and no vomiting Musculoskeletal: no back pain, no neck pain, no radicular pain, no joint pain and no myalgia Integumentary: no rash and no lesions Neurologic: no gait abnormality, no localized weakness, no generalized weakness, no tingling, no numbness, no tremor(s), no abnormal movements, no headache(s), no abnormal speech, no confusion and no memory loss Psychiatric: no depression, no irritability, no anxiety, no difficulty concentrating, no confusion and no hallucinations Endocrine: no fatigue and no flushing Hematologic / Lymphatic: no easy bleeding and no easy bruising Allergy / Immunological: no urticaria and no problem reported Exam (Neuro) Physical Exam: The patient is right-handed. The patient is awake, alert, and attentive. Speech is normal without any aphasia or obvious dysarthria (he has no teeth in which gives him some slurred speech). The patient can name objects, repeat phrases, and has normal spontaneous speech. Mentation and thought processes are intact, with orientation to person, place and time, and normal fund of knowledge. Attention and concentration are normal. Mood and affect are normal and appropriate. General appearance and grooming are normal. Short and long-term memory are intact. Pupils are about 2 mm bilaterally and reactive to light. I question whether the right eye was slightly smaller than the left but I think they are about the same . With left gaze, the left eye can fully abduct the right eye can not adduct much past midline. With right gaze, the left eye adducts well in the right eye adducts well. He is no nystagmus. At primary gaze, he has an exotropia dysconjugate gaze left eye. Keeping both eyes open and altered nightly covering and uncovering and I reveals some mild exotropia on the right and more significant exotropia on the left. This exotropia continued with up and down gaze. Visual acuity and visual francisco seem normal grossly to confrontation. The patient has some very mild ptosis in the right eye compared to the left. There are no deficits to sensation in the face in all 3 distributions of the fifth cranial nerve bilaterally. Corneal reflexes are positive bilaterally. Facial strength and symmetry was normal bilaterally. Hearing seems normal bilaterally. Palate moves well without asymmetry. There is normal sternocleidomastoid and trapezius (shoulder shrug) strength bilaterally. Tongue is midline with good strength bilaterally. Neck has a full range of motion without discomfort. Cervical, thoracic, and lumbar spine are nontender to palpation. Gait is narrow based, with good arm swing, turns, and stance. Balance is normal eyes open or closed. Motor strength is 5/5 diffusely in the arms bilaterally including deltoids, biceps, triceps, brachioradialis, wrist flexors and extensors, career coordinator, and intrinsic hand muscles. Motor strength is 5/5 diffusely in the legs bilaterally including hip flexors, quadriceps, hamstrings, gastrocnemius, tibialis anterior, tibialis posterior, and Peroneii muscles. Toe extensors are normal and there is good bulk in the extensor digitorum brevis muscles bilaterally. The limbs have good tone without rigidity or spasticity. There is no atrophy noted in the muscles. Muscle bulk is normal, there is no tenderness to palpation, no myotonia to percussion, and no fasciculations seen. Sensory examination is intact to touch and pin throughout all 4 limbs diffusely. Reflexes are 1/4 in the biceps, triceps, brachioradialis, and quadriceps tendons bilaterally. Achilles tendon reflexes are absent There is no clonus bilaterally. Toes are downgoing with plantar stimulation bilaterally. Peripheral pulses are present and of normal quality distally in all 4 limbs. There is no peripheral edema noted in the limbs. Results & Data Vital Signs (Past 12 Hours) Vital Signs Temp Pulse Pulse Resp BP Pulse Ox O2 Del Method 05/08/23 07:52 36.4 C L 85 20 150/80 H 95 Room Air 05/08/23 03:00 36.7 C 83 14 122/74 96 Room Air 05/08/23 01:30 87 05/08/23 01:24 36.7 C 92 H 18 154/96 H 94 Room Air 05/08/23 01:24 36.7 C 92 H 18 154/96 H 94 Room Air 05/08/23 00:31 83 16 134/79 95 Room Air 05/07/23 23:09 87 16 135/90 96 Room Air 05/07/23 21:00 Room Air PG Care Time/CCT Total # of Minutes Spent Total Time Spent with Patient: Total time spent is greater than 50% in coordination of care (as documented) at patient's floor/unit and/or counseling patient: Coding Level of Care Code 58411 INT INP/OBS CARE 3/75MIN Diagnoses Cranial nerve III palsy, partial, right H49.01 Dysconjugate gaze H51.8 Lyme disease A69.20 Time Spent (min) 90
--- NOTE | 2023-05-08 13:31 | Hospitalist Progress Note ---
Date of Service May 08, 2023 Assessment & Plan (1) Eye problems: Plan: 82-year-old male with no significant past medical history as per patient who follows with the [facility] presented with blurry vision. He had seen a physician at the [facility] for redness in right eye for which she was given eyedrops. Lyme disease Blurring of vision Staggering gait Afebrile, normotensive and saturating well on room air CTA head without any acute finding. CTA head Aneurysm of the anterior communicating artery, measures 2.7 x 3.2 mm. 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 MRI of the brain reviewed; no acute stroke. Lyme IgM/IgGG positive Discussed with neurology; recommended treatment with IV ceftriaxone 2 g daily for now. Recommended to switch over to doxycycline for 3 to 4 weeks after recent inpatient stay. No indication for surgical opinion regarding the tiny incidental aneurysm as per neurology. Continue on aspirin 81 mg Started on Lipitor 20 mg given the finding in the CTA neck of atherosclerotic plaque and diagnosis of type 2 diabetes mellitus. Monitor in telemetry PT OT evaluation Patient needs to see by ophthalmology prior to being cleared for driving. Type 2 diabetes mellitus No prior history of diabetes melitis A1c percent of 7.1%. Plan to start metformin as outpatient. DVT prophylaxis SCDs for now PT OT pending. Disposition telemetry floor Full code Time spent evaluating patient, direct bedside care, chart review, placing orders, interpretation of diagnostic studies, discussion with consultants, patient, and family members, as well as other required patient management activities is 60 minutes. Please note the above document was generated using voice recognition software. It may contain grammatical, syntax or spelling errors. Any formal questions or concerns about the content, text or information contained within the body of this dictation should be directly addressed to the provider for clarification Admission and Anticipated Discharge Date Admission Date: May 07, 2023 Subjective Patient seen and examined at bedside. He is lying in the bed comfortably; not in distress. Reports that his vision is getting better. Afebrile, normotensive and saturating well on room air. Review of Systems Review of Systems: All systems reviewed & are unremarkable except as noted in Subjective Physical Exam Physical Exam: Constitutional: WD/WN, vitals as above, NAD, sitting up in bed, pleasant, conversing easily Head: Normocephalic, Atraumatic Eyes: Mild ptosis in the right eye compared to left. Right eye cannot abduct past midline ENMT: external ear and nose normal, oropharynx normal Neck: trachea midline, no thyromegaly normal visual inspection Respiratory: normal respiratory effort, lungs clear to auscultation, no wheeze, rales, rhonchi. Normal insp/exp effort, no accessory muscle use Cardiovascular: RRR, no murmur, no edema Vessels: no JVD or carotid bruit Chest: normal inspection of chest Abdomen: normal bowel sounds, soft, nontender, no hepatosplenomegaly Musculoskeletal: no cyanosis or clubbing, extremities motor strength 5/5 Skin: no rashes, warm and dry normal turgor Neurologic: Mild ptosis in the right eye compared to left. Right eye cannot abduct past midline. Other neuro exam grossly intact. Psychiatric: A+Ox3, euthymic affect Results & Data Results & Data Vital Signs (Past 12 Hours) Vital Signs Temp Pulse Pulse Resp BP Pulse Ox O2 Del Method 05/08/23 11:33 36.5 C 82 18 122/69 96 Room Air 05/08/23 08:00 88 05/08/23 08:00 Room Air 05/08/23 07:52 36.4 C L 85 20 150/80 H 95 Room Air 05/08/23 03:00 36.7 C 83 14 122/74 96 Room Air Laboratory Results Laboratory Results WBC 8.45 K/ul (4.8-10.8) 05/08/23 05:56 RBC 3.76 M/uL (4.70-6.10) L 05/08/23 05:56 Hgb 10.8 g/dl (14.0-18.0) L 05/08/23 05:56 Hct 33.6 % (42.0-52.0) L 05/08/23 05:56 MCV 89.4 fL (80.0-100.0) 05/08/23 05:56 MCH 28.7 pg (25.0-34.0) 05/08/23 05:56 MCHC 32.1 g/dL (32.0-36.0) 05/08/23 05:56 RDW Std Deviation 48.3 fL (36.4-46.3) H 05/08/23 05:56 RDW Coeff of Emerson 14.9 % (11.5-14.5) H 05/08/23 05:56 Plt Count 343 K/uL (130-400) 05/08/23 05:56 MPV 8.7 fL (9.4-12.4) L 05/08/23 05:56 Immature Gran % (Auto) 0.9 % 05/08/23 05:56 Neut % (Auto) 84.5 % 05/08/23 05:56 Lymph % (Auto) 8.6 % 05/08/23 05:56 Jones % (Auto) 2.8 % 05/08/23 05:56 Eos % (Auto) 2.7 % 05/08/23 05:56 Baso % (Auto) 0.5 % 05/08/23 05:56 Neut # (Auto) 7.13 K/uL (1.40-6.50) H 05/08/23 05:56 Lymph # (Auto) 0.73 K/uL (1.20-3.40) L 05/08/23 05:56 Jones # (Auto) 0.24 K/uL (0.11-0.59) 05/08/23 05:56 Eos # (Auto) 0.23 K/uL (0.00-0.50) 05/08/23 05:56 Baso # (Auto) 0.04 K/uL (0.00-0.20) 05/08/23 05:56 Immature Gran # (Auto) 0.08 K/uL (0.01-0.20) 05/08/23 05:56 PT 11.4 Seconds (9.0-12.0) 05/07/23 16:14 INR 1.0 (0.9-1.1) 05/07/23 16:14 Sodium 133 mmol/L (136-145) L 05/08/23 05:56 Potassium 3.8 mmol/L (3.5-5.1) 05/08/23 05:56 Chloride 101 mmol/L (98-107) 05/08/23 05:56 Carbon Dioxide 27 mmol/L (21-32) 05/08/23 05:56 Anion Gap 5 (3-11) 05/08/23 05:56 BUN 14 mg/dl (6-23) 05/08/23 05:56 Creatinine 0.79 mg/dl (0.6-1.4) 05/08/23 05:56 Est Cr Clr Drug Dosing 68.6 ml/min 05/08/23 05:56 Est GFR ( Amer) 97.6 ml/min 05/08/23 05:56 Est GFR (Non-Af Amer) 84.2 ml/min 05/08/23 05:56 BUN/Creatinine Ratio 17.7 (10-20) 05/08/23 05:56 Glucose 116 mg/dl (70-99(Fasting)) H 05/08/23 05:56 Estimat Average Glucose 157 mg/dl 05/08/23 05:56 Hemoglobin A1c 7.1 % (4.5-5.6) H 05/08/23 05:56 Calcium 9.1 mg/dl (8.6-10.3) 05/08/23 05:56 Phosphorus 3.0 mg/dl (2.5-4.9) 05/07/23 16:14 Magnesium 2.2 mg/dl (1.7-2.4) 05/07/23 16:14 Total Bilirubin 0.4 mg/dl (0.2-1.0) 05/07/23 16:14 AST 18 U/L (13-39) 05/07/23 16:14 ALT 16 U/L (7-52) 05/07/23 16:14 Alkaline Phosphatase 76 U/L (34-104) 05/07/23 16:14 Troponin I High Sens 14.3 pg/ml (0-20) 05/07/23 16:14 Total Protein 7.9 gm/dl (6.0-8.3) 05/07/23 16:14 Albumin 3.7 gm/dl (3.4-5.0) 05/07/23 16:14 Globulin 4.2 gm/dl (2.5-4.0) H 05/07/23 16:14 Albumin/Globulin Ratio 0.9 (0.9-2) 05/07/23 16:14 Triglycerides 78 mg/dl (0-150) 05/08/23 05:56 Cholesterol 106 mg/dl (0-200) 05/08/23 05:56 LDL Cholesterol, Calc 68 mg/dl 05/08/23 05:56 VLDL Cholesterol, Calc 16 mg/dl (0-30) 08/31/23 05:56 HDL Cholesterol 22 mg/dl 05/08/23 05:56 Cholesterol/HDL Ratio 4.8 (0-5) 05/08/23 05:56 Anaplasma Smear See Comment 05/07/23 16:14 Babesia Smear See Comment 05/07/23 16:14 Lyme Disease IgG Ab Positive (Negative) A 05/07/23 16:14 Lyme Disease IgM Ab Positive (Negative) A 05/07/23 16:[address] 05/07/23 16:05 CT SCAN OF THE BRAIN WITHOUT IV CONTRAST CLINICAL HISTORY: Right-sided visual disturbances. COMPARISON STUDY: No priors. TECHNIQUE: Unenhanced axial CT scan of the brain is performed from the vertex to the skull base. A dose lowering technique was utilized adhering to the principles of ALARA. CT DOSE: 625.80 mGy.cm FINDINGS: Brain parenchyma: There is age-related involutional change noting mild to moderate subcortical and periventricular microangiopathic disease. There is no hemorrhage, mass effect, or evidence of acute territorial ischemia by CT criteria. Reyes-white matter differentiation is preserved. No extra-axial fluid collection is seen. Ventricles, sulci, cisterns: Prominent secondary to involutional change. Intracranial vasculature: There is atherosclerotic calcification of the cavernous carotid and vertebral arteries. Calvarium: Unremarkable. Sinuses and mastoids: The visualized paranasal sinuses are clear. The mastoid air cells are well pneumatized. Orbits: The bony orbits are grossly intact. Soft tissues: Soft tissue calcifications are noted in both ears. IMPRESSION: There is no hemorrhage, mass effect, or evidence of acute territorial ischemia by CT criteria. ACT 112: Negative or not required by law. Electronically signed by: Fabiano Lombardo M.D. 05/07/2023 5:07 PM Chest X-Ray 05/07/23 16:06 XR chest 1V portable CLINICAL HISTORY: Visual disturbance COMPARISON STUDY: No previous studies for comparison. FINDINGS: Lung volumes are normal. Lungs are clear. There is no pneumothorax or pleural effusion. Cardiac size is normal. There is mild prominence for the contour of the ascending aorta. There is no evidence for pulmonary edema. Multiple old, healed left rib fractures are incidentally noted. IMPRESSION: No acute cardiopulmonary findings. ACT 112: Negative or not required by law. Electronically signed by: Humberto Garza M.D. 05/07/2023 6:15 PM Head CTA 05/07/23 20:46 Exam(s): CTA HEAD With Contrast EXAM: CT Angiography Head With Intravenous Contrast CLINICAL HISTORY: Reason for exam: two weeks of vision change, r/o cva. TECHNIQUE: Axial computed tomographic angiography images of the head with intravenous contrast. CTDI is 11.56 mGy and DLP is 422.43 mGy-cm. Automated exposure control was utilized for the study. A dose lowering technique was utilized adhering to the principles of ALARA. MIP reconstructed images were created and reviewed. CONTRAST: Contrast must be dictated COMPARISON: No relevant prior studies available. FINDINGS: Right internal carotid artery: No acute findings. Intracranial segment is patent with no significant stenosis. No aneurysm. 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 No occlusion or significant stenosis. Right middle cerebral artery: Unremarkable. No occlusion or significant stenosis. No aneurysm. Right posterior cerebral artery: Unremarkable. No occlusion or significant stenosis. No aneurysm. Right vertebral artery: Unremarkable as visualized. Left internal carotid artery: No acute findings. Intracranial segment is patent with no significant stenosis. No aneurysm. Left anterior cerebral artery: See above. Left middle cerebral artery: Unremarkable. No occlusion or significant stenosis. No aneurysm. Left posterior cerebral artery: Unremarkable. No occlusion or significant stenosis. No aneurysm. Left vertebral artery: Unremarkable as visualized. Basilar artery: Unremarkable. No occlusion or significant stenosis. No aneurysm. 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 No large vessel occlusion. Electronically signed by: Yazan De Luna MD 05/07/23 21:57 PM Neck CTA 05/07/23 20:46 Exam(s): CTA NECK With Contrast IV Amt: 116 optiray 350 EXAM: CT Angiography Neck With Intravenous Contrast CLINICAL HISTORY: Reason for exam: two weeks of vision change, r/o cva. TECHNIQUE: Routine carotid CT angiography protocol was performed with intravenous contrast. NASCET criteria using the distal ICAs for comparison were used for evaluation of stenoses. CTDI is 11.56 mGy and DLP is 422.43 mGy-cm. Automated exposure control was utilized for the study. A dose lowering technique was utilized adhering to the principles of ALARA. MIP reconstructed images were created and reviewed. CONTRAST: Patient received 116 optiray 350 of IV contrast COMPARISON: None. FINDINGS: Right common carotid artery: Patent. Right internal carotid artery: Patent. Right vertebral artery: Patent. Left common carotid artery: Patent. Left internal carotid artery: Patent. Left vertebral artery: Patent. Codominant. Other: Mild to moderate atherosclerosis bilateral carotid bifurcation, without significant stenosis. Large ulcerative (high risk) atherosclerotic plaque of the aortic arch, after the subclavian origin. Aorta is incompletely evaluated. IMPRESSION: 1. No dissection, occlusion, or significant stenosis. 2. 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 CAROTID STENOSIS REFERENCE USING NASCET CRITERIA: % ICA stenosis = (1 - narrowest ICA diameter/diameter of distal cervical ICA) x 100. Mild - <50% stenosis. Moderate - 50-69% stenosis. Severe - 70-94% stenosis. Near occlusion - 95-99% stenosis. Occluded - 100% stenosis. Electronically signed by: Kalli Kraus M.D. 05/07/23 22:14 PM Brain MRI 05/08/23 01:24 MRI OF THE BRAIN COMBO CLINICAL HISTORY: Strokelike symptoms. Left-sided visual disturbances. COMPARISON STUDY: CT of the brain dated 05/07/2023. TECHNIQUE: MRI of the brain was performed utilizing various T1 and T2-weighted sequences in the axial, sagittal, and coronal planes. Contrast-enhanced sequences were acquired following the administration of 7.5 cc of Gadavist. FINDINGS: Brain parenchyma: There is age-related involutional change noting mild subcortical and periventricular microangiopathic disease. There is no hemorrhage or mass effect. There is no restricted diffusion to suggest acute ischemia. No enhancing mass lesion is identified on the postcontrast images. Reyes-white matter differentiation is preserved. No extra-axial fluid collection is seen. The cerebellar tonsils are normal in configuration. Ventricles, sulci, and cisterns: Prominent secondary to involutional change. Pituitary and sella: Partially empty sella is incidentally noted. Intracranial vasculature: Normal flow voids are maintained at the skull base. Orbits: The bony orbits are grossly intact. Orbital contents are normal in appearance. Sinuses and mastoids: Clear. Calvarium: Unremarkable. Cervical cord: Partially visualized cervical spinal cord is normal in morphology and signal intensity. IMPRESSION: No acute intracranial abnormality. ACT 112: Negative or not required by law. Electronically signed by: Fabiano Lombardo M.D. 05/08/2023 7:37 AM
[2023-05-08] MEDS ORDERED: cefTRIAXone SODIUM 2,000 MG in DEXTROSE 5% 50 ML IV SCH (21:00)
[2023-05-09 07:01] LABS: Basophils # (auto) 0.04 K/uL (0.00-0.20); Basophils % (auto) 0.6 %; Eosinophils # (auto) 0.42 K/uL (0.00-0.50); Eosinophils % (auto) 6.7 %; Hematocrit (blood only) 36.8 % (42.0-52.0); Hemoglobin 11.9 g/dl (14.0-18.0); Immature Granulocytes # (auto) 0.13 K/uL (0.01-0.20); Immature Granulocytes % (auto) 2.1 %; Lymphocytes # (auto) 1.24 K/uL (1.20-3.40); Lymphocytes % (auto) 19.8 %; Mean Corpuscular Hgb Conc 32.3 g/dL (32.0-36.0); Mean Corpuscular Volume 89.5 fL (80.0-100.0); Mean Platelet Volume 8.6 fL (9.4-12.4); Monocytes # (auto) 0.27 K/uL (0.11-0.59); Monocytes % (auto) 4.3 %; Neutrophils # (auto) 4.15 K/uL (1.40-6.50); Neutrophils % (auto) 66.5 %; Platelet Count 388 K/uL (130-400); RDW Coefficient of Variation 14.8 % (11.5-14.5); RDW Standard Deviation 48.4 fL (36.4-46.3); Red Blood Count 4.11 M/uL (4.70-6.10); White Blood Count 6.25 K/ul (4.8-10.8)
[2023-05-09 07:27] LABS: BUN Creatinine Ratio 22.1 (10-20); Calcium 9.4 mg/dl (8.6-10.3); Est GFR (African American) 94.3 ml/min; Est GFR (Non-African American) 81.3 ml/min; Potassium 4.7 mmol/L (3.5-5.1)
[2023-05-09] MEDS: ASPIRIN 81 MG ECTAB PO SCH (07:57)
[2023-05-09] MEDS ORDERED: ATORVASTATIN 20 MG TAB PO SCH (09:00)
--- NOTE | 2023-05-09 10:31 | Neurology Progress Note ---
Date of Service May 09, 2023 Assessment & Plan (1) Cranial nerve III palsy, partial, right: (2) Dysconjugate gaze: (3) Lyme disease: Plan Patient has a subacute onset of dysconjugate gaze and eye issues including blurry vision left greater than right side. On examination he seems to have a partial right 3rd nerve palsy with some very mild ptosis. I am not convinced there is any miosis. It is painless. The patient has some alternating exotropia and I am not convinced his eye problems are simply a pure 3rd nerve palsy. Today, he can adduct the right eye a little better yesterday. Patient has a positive Lyme antibody titer and MRI of the brain does not show an obvious stroke. Certainly his presentation would fit with a small brainstem (constanza) stroke but Lyme disease could do this as well. 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 He has other risk factors for stroke including hypertension and a remote history of cigarette smoking. I reviewed the CT angiography with Dr. Garza radiology, and this aneurysm is less than 3 mm. Recommendations: 1. Continue treatment for Lyme disease with IV ceftriaxone 2 g daily . He could be switched to doxycycline for 3-4 weeks after his inpatient stay (or he can be given a PICC line and given 1 month of IV Rocephin. 2. In lieu of the small-vessel ischemic disease, consider initiation of 81 mg aspirin tablet daily. 3. Control blood pressure as you are doing, aiming for a mean arterial pressure of 95-100. 4. There is no indication for a statin in this patient as his lipid parameters are quite normal. 5. Consider patching the eye and no driving until cleared by Ophthalmology. 6. There is no indication for a surgical opinion regarding this tiny incidental aneurysm. Overall, I spent a total of 35 minutes with this case including review of records, direct evaluation the patient at bedside, report generation, and discussion of the case with the patient and Dr. Vee, including differential diagnosis and treatment options. Admission and Anticipated Discharge Date Admission Date: May 07, 2023 Subjective Patient has no complaint of pain, headache, dizziness, or other issues. He does have some blurry vision in the left eye and some double vision Echocardiogram showed mild left ventricular hypertrophy. Blood pressure is 108/54. Chem profile and CBC were unremarkable. Results & Data Vital Signs (Past 12 Hours) Vital Signs Temp Pulse Pulse Resp BP Pulse Ox O2 Del Method 05/09/23 08:00 76 05/09/23 08:00 Room Air 05/09/23 07:11 36.5 C 80 18 108/54 L 92 Room Air 05/09/23 02:51 36.5 C 79 16 122/75 94 Room Air 05/08/23 23:21 36.4 C L 86 18 150/88 H 95 Room Air 05/08/23 23:00 86 Exam (Neuro) Physical Exam: He is awake and alert. Speech is without aphasia or dysarthria. Mood and affect seem normal and appropriate. Thought processes are intact with good long and short-term memory to conversation. Extraocular eye muscles are about the same as yesterday: He has some mild right upper eyelid ptosis. Pupils are tiny and difficult to be sure but there may be some asymmetry. The right eye does not fully adduct but I believe it is adducting a little better than it was yesterday. It abducts fully. The left eye is dysconjugate and with primary gaze abducts. When the right eye is covered the left eye will fix on the target. The left eye has a full range of motion in all direction otherwise Coordination is normal in the arms and strength is symmetrical. PG Care Time/CCT Total # of Minutes Spent Total Time Spent with Patient: Total time spent is greater than 50% in coordination of care (as documented) at patient's floor/unit and/or counseling patient: Coding Level of Care Code 15064 SUB INP/OBS CARE 2/35MIN Diagnoses Cranial nerve III palsy, partial, right H49.01 Dysconjugate gaze H51.8 Lyme disease A69.20 Time Spent (min) 35
--- NOTE | 2023-05-09 13:11 | Discharge Summary ---
Date of Service May 09, 2023 Admission HPI Per Admitting Provider 82-year-old male with no significant past medical history as per [facility] and was recently treated for seems to be right eye infection with eyedrops which seemed improved but also is having for last 3 weeks left eye vision problems and [facility]. Patient says when he is driving the car, opposite vehicles suddenly seem to enter his cars path. If he closes left eye the vision seems to be okay. It seems same since last 3 weeks. Since same time he is seems also have some staggering gait. Denies any headache or dizziness. No earaches or runny nose or sore throat. No cough. No fevers. Denies any chest pain or shortness of breath. No nausea or vomiting. Had diarrhea couple of weeks ago but that got resolved. Normal bladder movements. Resting comfortably and hemodynamic stable and able to give his history. Lyme screen came back positive in the ER. Denies any tick bites but says he walks in the [place]. Past medical history none as per patient Past surgical history bilateral inguinal hernia surgery. Had nasal surgery. Social history quit smoking in 2000 prior to that smoked 1 packs a day for 25 years. Denies any alcohol use. Lives alone Family history Admission Exam Per Admitting Provider General- Not in distress Head- atraumatic Eyes- PERRL, EOMI, ENT- oropharynx clear Neck- supple, no JVD, no adenopathy, carotids +2/2, no bruits appreciated Lungs- clear to auscultation bilaterally, no wheezing or crackles. Heart- regular rate and rhythm; no murmur, no gallop. Abdomen- normal bowel sounds, soft, nontender, no distension. Extremities- no pretibial edema, no erythema seen. Neuro- alert, oriented x 3; PERRL, EOMI; no facial palsy; no dysarthria; motor 5/5 bilaterally; no pronator drift coordination of movements normal Skin- warm & dry Principal Diagnosis Lyme disease Blurring of vision Staggering gait Discharge Exam Constitutional: WD/WN, vitals as above, NAD, sitting up in bed, pleasant, conversing easily Head: Normocephalic, Atraumatic Eyes: Mild ptosis in the right eye compared to left. Right eye cannot abduct past midline ENMT: external ear and nose normal, oropharynx normal Neck: trachea midline, no thyromegaly normal visual inspection Respiratory: normal respiratory effort, lungs clear to auscultation, no wheeze, rales, rhonchi. Normal insp/exp effort, no accessory muscle use Cardiovascular: RRR, no murmur, no edema Vessels: no JVD or carotid bruit Chest: normal inspection of chest Abdomen: normal bowel sounds, soft, nontender, no hepatosplenomegaly Musculoskeletal: no cyanosis or clubbing, extremities motor strength 5/5 Skin: no rashes, warm and dry normal turgor Neurologic: Mild ptosis in the right eye compared to left. Right eye cannot abduct past midline. Other neuro exam grossly intact. Psychiatric: A+Ox3, euthymic affect Discharge Data Allergies Allergy/AdvReac Type Severity Reaction Status Date / Time pollen extracts Allergy Intermediate SNEEZING, Verified 05/07/23 20:38 CONGESTION Consultations 05/07/23 22:34 ED Decision to Admit Stat 05/08/23 08:00 Consult Neurology Routine Ordered Studies 05/07/23 16:05 CT head/brain wo con Stat 05/07/23 20:46 CT angio head w con Stat CT angio neck with con Stat 05/08/23 01:24 MR brain wo/w con Urgent Hospital Course (1) Eye problems: 82-year-old male with no significant past medical history as per patient who follows with the [place] presented with blurry vision and diplopia. He had seen a physician at the [place] for redness in right eye for which he was given eyedrops. Patient underwent imaging with CT head which did not show any acute finding. CTA head showed Aneurysm of the anterior communicating artery, measures 2.7 x 3.2 mm. CTA neck showed high risk, ulcerative atherosclerotic plaque of the posterior aortic arch. MRI of the brain did not show any acute stroke Lyme IgM/IgG was positive. Neurology was consulted during the hospitalization; the symptoms were likely thought secondary to Lyme disease or small brainstem stroke. Recommend treatment with IV ceftriaxone during inpatient and possibly switching to doxycycline as outpatient. Patient was also started on aspirin 81 mg due to small vessel disease. Patient was found to have HbA1c of 7.1%. Discussion was done with patient regarding starting oral medications given his newly diagnosed type 2 diabetes mellitus; he did not want to started on medication right now and wanted to continue diet control measures. OT evaluation was done; patient was given patch for the eye. He was recommended to go to rehab which he refused. Patient was given prescriptions for doxycycline for 3 weeks, aspirin 81 mg and Lipitor 20 mg. Discussion was done with patient regarding follow-up with ophthalmology. He was told that he needs to be cleared by ophthalmology prior to being cleared for driving. Patient verbalized understanding. Please note the above document was generated using voice recognition software. It may contain grammatical, syntax or spelling errors. Any formal questions or concerns about the content, text or information contained within the body of this dictation should be directly addressed to the provider for clarification Total Time Total Time Spent Total Time Spent (In Minutes): 40 Total Time Includes: Examination of the Patient, Discharge Planning, Medication Reconciliation, Communication With Other Providers and Other Discharge Plan Discharge Items Patient Disposition: Home - Self-Care Reason For Visit: LEFT EYE PROBLEMS, CVA? LYME DISEASE Discharge Diagnosis: Lyme's disease. Activity: Resume your previous activity Non-emergency contact: Primary Care Provider Call non-emergency contact if: you have any medication questions and your symptoms worsen Follow-up/Referrals: Eloise Fish MD [Primary Care Provider] - Diet: Regular Addtl Attending Provider Instructions: You were admitted to the hospital for concern of eye issues. The likely underlying cause is Lyme disease. The MRI of the brain also shows some a small vessel ischemic disease. You were evaluated by neurology during the hospitalization. Following medication are prescribed: 1) take doxycycline 100 mg twice daily for 21 days 2) take aspirin 81 mg once a day 3) take Lipitor 20 mg once a day Please [facility]. Please do not drive till you have ophthalmology examination and your eye symptoms have resolved. Please patch your eye. Pending Studies at Discharge: No Stand-Alone Forms: My [employer], Smoking Cessation Medications and DC Order Prescriptions: New atorvastatin 20 mg Tablet 20 mg PO QAM Qty: 30 0RF aspirin 81 mg Tablet,Delayed Release (Dr/Ec) 81 mg PO DAILY Qty: 30 0RF doxycycline monohydrate 100 mg capsule 100 mg PO BID 21 Days Qty: 42 0RF Continued ofloxacin 0.3 % drops 2 drp OPR QID Rx Instructions: STARTED 05/02/23 FOR 7 DAYS, PER PT "ALREADY FINISHED". Discontinued Multiple Suppliments 1 dose PO DAILY Rx Instructions: PER PT "LOTS OF SUPPLIMENTS, CAN'T REMEMBER THEM ALL". Discharge Orders: Discharge Order (Routine); Ordered 05/09/23 Ordered By: Valente Everett/Other Patient Handouts: A1C, Preventing Lyme Disease, Tick Bites, Eating Heart-Healthy Foods, ED Lyme Disease Admission Data Admit Date/Time: 05/07/23 23:40 Attending Provider: Valente Vee Admit Provider: Vickey Mehta Primary Care Provider: Eloise Fish Other Providers: Vickey Mehta ; Moody Dent ; Mayito López ; Radha Villegas ; [place] Sorensen ; Amanda Barajas ; Sg Molina ; Amanda Lewis ; Tristin Mallory ; Gen Benitez ; Bruce Wright ; Bryn Sanz ; Alina Encarnacion ; Dania Coy ; Misha Zamudio ; Mir Amezcua ; Brett Rodrigues ; Mele Oh ; Magaly Garcia ; Hilda Smith ; [facility] ; Rhina Vasquez Other Interventions: Discharge Summary Assessment (RN) Last Done: 05/09/23 10:54
[2023-05-11 00:02] LABS: Babesia microti DNA Not Detected (Not Detected)
--- NOTE | 2023-05-12 08:09 | Electrocardiogram Report ---
Test Reason : Blood Pressure : / mmHG Vent. Rate : 094 BPM Atrial Rate : 094 BPM P-R Int : 204 ms QRS Dur : 120 ms QT Int : 374 ms P-R-T Axes : 093 212 096 degrees QTc Int : 467 ms Suspect arm lead reversal, interpretation assumes no reversal Normal sinus rhythm Lateral infarct , age undetermined Non-specific intra-ventricular conduction block Abnormal ECG No previous ECGs available Confirmed by Greg Heredia ([id number]) on 05/12/2023 8:09:10 AM Referred By: REFERRED SELF Confirmed By:Greg Heredia
[2023-05-14 07:54] LABS: 18KDIGG Band REACTIVE; 23KDIGG Band NON-REACTIVE; 23KDIGM Band REACTIVE; 28KDIGG Band NON-REACTIVE; 30KDIGG Band NON-REACTIVE; 39KDIGG Band REACTIVE; 39KDIGM Band REACTIVE; 41KDIGG Band REACTIVE; 41KDIGM Band REACTIVE; 45KDIGG Band REACTIVE; 58KDIGG Band REACTIVE; 66KDIGG Band REACTIVE; 93KDIGG Band REACTIVE; Lyme Antibodies, WB IgG POSITIVE (NEGATIVE); Lyme Antibodies, WB IgM POSITIVE (NEGATIVE)
== END 2023-05-09 12:49 | disposition home or self-care (01) | DRG 123 ==
LOC: ED 15:56 → 2S 23:40 → SUATTDRO 23:40 → 2S 05-08 00:50

== ENCOUNTER 2025-04-15 15:44 | Inpatient (IN) ==
[2025-04-15 16:35] LABS: Hematocrit (blood only) 37.3 % (42.0-52.0); Hemoglobin 12.7 g/dl (14.0-18.0); Immature Granulocytes # (auto) 0.15 K/uL (0.01-0.20); Immature Granulocytes % (auto) 1.1 %; Mean Corpuscular Hemoglobin 30.0 pg (25.0-34.0); Mean Corpuscular Volume 88.2 fL (80.0-100.0); Platelet Count 267 K/uL (130-400); RDW Standard Deviation 44.7 fL (36.4-46.3); Red Blood Count 4.23 M/uL (4.70-6.10); White Blood Count 14.24 K/ul (4.8-10.8)
[2025-04-15 16:50] LABS: Alanine Aminotransferase 49 U/L (7-52); Albumin Globulin Ratio 1.3 (0.9-2); Alkaline Phosphatase 87 U/L (34-104); Anion Gap 9 (3-11); Bilirubin,Total 1.1 mg/dl (0.2-1.0); Blood Urea Nitrogen 45 mg/dl (6-23); Calcium 9.3 mg/dl (8.6-10.3); Carbon Dioxide 26 mmol/L (21-32); Chloride 91 mmol/L (98-107); Globulin 3.2 gm/dl (2.5-4.0); Glucose 113 mg/dl (70-99(Fasting)); Lipase 16 U/L (11-82); Potassium 4.8 mmol/L (3.5-5.1); Sodium 126 mmol/L (136-145); Total Protein 7.2 gm/dl (6.0-8.3)
--- NOTE | 2025-04-15 17:29 | Emergency Department Note ---
Impression & Plan Urinary retention, Bladder outlet obstruction, LIDIA (acute kidney injury), Acute hyponatremia, Prostate cancer ED Provider Note NAME: ENA KANG AGE: 84 SEX: M : 1940 ARRIVES VIA: Walk-In INFORMANT: Patient, ED PROVIDER(S): Arlene Marques MD CHIEF COMPLAINT: Abdominal pain/swelling HPI: This is a 84-year-old male present for abdominal pain/swelling. Patient notes that he has had increasing abdominal swelling for the past 3 days. He notes that his painful in his lower abdomen with palpation. He reports nausea and vomiting once. He reports no diarrhea. Reports no fevers, chills. No chest pain or shortness of breath. ROS: See above HPI for pertinent positives & negatives. A total of 10 systems reviewed and were otherwise negative. PAST MEDICAL HISTORY: See Below PAST SURGICAL HISTORY: See Below FAMILY HISTORY: See Below SOCIAL HISTORY: See Below HOME MEDICATIONS: See Below ALLERGIES: See Below VITALS: See Below PHYSICAL EXAMINATION: General: resting comfortably in no acute distress Head: Normocephalic and atraumatic Eyes: Normal inspection, extraocular muscles intact Ear, nose, throat: Normal external exam Neck: Normal range of motion Respiratory: lungs clear to auscultation bilaterally Cardiovascular: Regular rate/rhythm, no murmur GI: Distended abdomen, lower abdominal tenderness without rebound or guarding Extremities: nontender, moves all extremities Neuro: The patient awake and alert, appropriately conversive, no focal deficits, symmetric faces Skin: Warm, dry, and intact MEDICAL DECISION MAKING: This is an 84-year-old male present for abdominal pain/swelling. Will do screening abdominal workup including blood work, LFTs, lipase, UA and CT abdomen/pelvis due to significant pain and swelling. -Blood work significant abnormal with a leukocytosis of 14.24. Otherwise significant hyponatremia to 126, hypochloremia. New LIDIA to 1.95. -CT imaging reveals enlarged urinary bladder secondary to a enlarged irregularly shaped prostate gland causing obstruction. There appears to be signs of prostate malignancy as well as possible metastasis to the liver. There is mild hydronephrosis noted -Patient had Denny catheter placed which drained over 2.5 L initially - Will require admission due to this new LIDIA secondary to bladder outlet obstruction, hyponatremia, cancer -Patient made aware of his findings including cancer -Discussed care with [facility] hospitalist service under Dr. Bojorquez Differential diagnosis: Appendicitis, cholecystitis, cirrhosis, SBP, mass, diverticulitis Diagnostics interpreted by me: ECG: None Cardiac Monitoring: An order was placed for continuous cardiac monitoring. The monitor shows a rate of 88 with sinus rhythm. Past Med/Surg History Problem List (Updated 04/15/25 @ 23:23 by Arlene Marques MD) Prostate cancer (Acute) Acute hyponatremia (Acute) LIDIA (acute kidney injury) (Acute) Bladder outlet obstruction (Acute) Abnormal computed tomography of abdomen and pelvis Urinary retention (Acute) Dysconjugate gaze (Acute) Lyme disease (Acute) Eye problems Medical History COPD (chronic obstructive pulmonary disease) Cranial nerve III palsy, partial, right Surgical History History of hernia repair Social History Smoking Status: Never smoker Tobacco Type: Cigarettes Age Quit Using Tobacco: 70; Hx Alcohol Use: No Hx Substance Use: No Preferred Language: Setswana Communication Ability: Effective Rehabilitation Inspector Required: No Beliefs That Will Affect Care: None Current Living Situation: Alone Feels Safe at Home: Yes Assistive Devices: None Allergies Allergies Allergy/AdvReac Type Severity Reaction Status Date / Time pollen extracts Allergy Intermediate SNEEZING, Verified 04/15/25 18:46 CONGESTION Home Meds Home Medications Medication Instructions Recorded Confirmed Chelated Multivitamin Wo/Iron 1 tab PO DAILY 04/15/25 04/15/25 Gymnema Abel 1 tab PO DAILY 04/15/25 04/15/25 Kefir 1 dose PO DAILY 04/15/25 04/15/25 [id number] Cysteine Tablet 1 tab PO DAILY 04/15/25 04/15/25 albuterol sulfate 90 mcg/actuation 2 puff inhalation Q4H PRN 04/15/25 04/15/25 aerosol inhaler Shortness Of Breath alpha lipoic acid 300 mg capsule 300 mg PO DIRECTED PRN 04/15/25 04/15/25 NEEDED PER [facility] berberine chloride 500 mg-seaweed 1 cap PO DAILY 04/15/25 04/15/25 250 mg-chromium gly 7.5 mcg capsule bilberry 100 mg capsule 100 mg PO DAILY 04/15/25 04/15/25 cholecalciferol (vitamin D3) 25 25 mcg PO DAILY 04/15/25 04/15/25 mcg (1,000 unit) capsule (Vitamin D3) coenzyme Q10 100 mg capsule 100 mg PO BID 04/15/25 04/15/25 (CoQ-10) cyanocobalamin (vitamin B-12) 500 500 mcg PO DAILY 04/15/25 04/15/25 mcg tablet (Vitamin B-12) flaxseed 1 ea PO DAILY 04/15/25 04/15/25 hawthorn 500 mg capsule (hawthorn 500 mg PO DAILY 04/15/25 04/15/25 cochran) losartan 25 mg tablet 12.5 mg PO DAILY 04/15/25 04/15/25 magnesium oxide 250 mg PO DAILY 04/15/25 04/15/25 multivitamin with minerals 1 tab PO DAILY 04/15/25 04/15/25 omega-3 fatty acids 1,000 mg 1,000 mg PO BID 04/15/25 04/15/25 capsule tamsulosin 0.4 mg capsule (Flomax) 0.4 mg PO DAILY 04/15/25 04/15/25 tiotropium 2.5 mcg-olodaterol 2.5 2 puff inhalation DAILY 04/15/25 04/15/25 mcg/actuation mist for inhalation turmeric 400 mg capsule 400 mg PO DAILY 04/15/25 04/15/25 Results & Data (ED) Vital Signs Vital Signs - 24 hr 04/15/25 15:45 04/15/25 17:21 04/15/25 18:09 Temperature 37.2 C Temperature Source Temporal Artery Scan Pulse Rate 92 H Pulse Rate [Left Apical] 94 H 97 H Respiratory Rate 19 26 H 24 Respiratory Effort / Characteristics Non-Labored Spontaneous Spontaneous Normal for Patient Non-Labored Spontaneous Respiratory Depth Normal Shallow Normal Respiratory Pattern Regular Blood Pressure 112/51 L Blood Pressure [Right Arm] 154/101 H 148/83 H Blood Pressure Mean 71 Blood Pressure Mean [Right Arm] 118 104 Pulse Oximetry 95 95 Oxygen Delivery Method Room Air Room Air Room Air Sepsis Recent Fever Within 48 Hours No Sepsis New/Unexplained Change in Mental Status N/A Sepsis Action Taken by Nursing No Action Required 04/15/25 18:12 04/15/25 18:13 04/15/25 18:36 Temperature Temperature Source Pulse Rate 94 H 96 H 88 Pulse Rate [Left Apical] Respiratory Rate 25 H Respiratory Effort / Characteristics Respiratory Depth Respiratory Pattern Blood Pressure 145/79 H Blood Pressure [Right Arm] Blood Pressure Mean 101 Blood Pressure Mean [Right Arm] Pulse Oximetry 95 Oxygen Delivery Method Room Air Sepsis Recent Fever Within 48 Hours Sepsis New/Unexplained Change in Mental Status Sepsis Action Taken by Nursing Laboratory Data 04/15/25 16:10 04/15/25 16:10 Lab Results 04/15/25 04/15/25 Range/Units 16:10 18:00 WBC 14.24 H (4.8-10.8) K/ul RBC 4.23 L (4.70-6.10) M/uL Hgb 12.7 L (14.0-18.0) g/dl Hct 37.3 L (42.0-52.0) % MCV 88.2 (80.0-100.0) fL MCH 30.0 (25.0-34.0) pg MCHC 34.0 (32.0-36.0) g/dL RDW Std Deviation 44.7 (36.4-46.3) fL RDW Coeff of [place] 13.9 (11.5-14.5) % Plt Count 267 (130-400) K/uL MPV 9.3 L (9.4-12.4) fL Immature Gran % (Auto) 1.1 % Neut % (Auto) 84.4 % Lymph % (Auto) 5.2 % [place] % (Auto) 9.0 % Eos % (Auto) 0.2 % Baso % (Auto) 0.1 % Neut # (Auto) 12.02 H (1.40-6.50) K/uL Lymph # (Auto) 0.74 L (1.20-3.40) K/uL [place] # (Auto) 1.28 H (0.11-0.59) K/uL Eos # (Auto) 0.03 (0.00-0.50) K/uL Baso # (Auto) 0.02 (0.00-0.20) K/uL Immature Gran # (Auto) 0.15 (0.01-0.20) K/uL Sodium 126 L (136-145) mmol/L Potassium 4.8 (3.5-5.1) mmol/L Chloride 91 L (98-107) mmol/L Carbon Dioxide 26 (21-32) mmol/L Anion Gap 9 (3-11) BUN 45 H (6-23) mg/dl Creatinine 1.95 H (0.6-1.4) mg/dl Est Cr Clr Drug Dosing Not Reportable eGFR 33.51 BUN/Creatinine Ratio 23.1 H (10-20) Glucose 113 H (70-99(Fasting)) mg/dl Osmolality 280 (280-300) mOsm/kg Calcium 9.3 (8.6-10.3) mg/dl Total Bilirubin 1.1 H (0.2-1.0) mg/dl AST 35 (13-39) U/L ALT 49 (7-52) U/L Alkaline Phosphatase 87 (34-104) U/L Total Protein 7.2 (6.0-8.3) gm/dl Albumin 4.0 (3.4-5.0) gm/dl Globulin 3.2 (2.5-4.0) gm/dl Albumin/Globulin Ratio 1.3 (0.9-2) Lipase 16 (11-82) U/L Prostate Specific Ag 8.283 H (0-4) ng/ml Procalcitonin 0.20 (0-0.5) ng/ml Urine Color Yellow Urine Appearance Clear (Clear) Urine pH 5.5 (4.5-7.5) Ur Specific [place] 1.013 (1.000-1.030) Urine Protein Negative (Negative) Urine Glucose (UA) Negative (Negative) Urine Ketones Negative (Negative) Urine Blood 1+ H (Negative) Urine Nitrite Negative (Negative) Urine Bilirubin Negative (Negative) Urine Urobilinogen Negative (Negative) Ur Leukocyte Esterase Negative (Negative) Urine WBC (Auto) 0-5 (0-5) /hpf Urine RBC (Auto) 11-20 H (0-2) /hpf U Hyaline Cast (Auto) 0-2 (0-2) /lpf U Epithel Cells (Auto) 0-2 (0-2) /hpf Urine Bacteria (Auto) None Seen (None Seen) Urine Osmolality 367 L (500-800) mOsm/kg Ur Random Sodium 21 mmol/L Urine Comment Administered Medications Docusate Sodium (Docusate Sodium 100 Mg Cap) 100 mg PO BID SONIA Stop: 05/15/25 21:15 Last Admin: 04/15/25 22:38 Dose: 100 mg Documented By: JUAN Guaifenesin (Guaifenesin 600 Mg Tabcr) 600 mg PO Q12 SONIA Stop: 05/15/25 21:15 Last Admin: 04/15/25 22:38 Dose: 600 mg Documented By: JUAN Heparin Sodium (Porcine) (Heparin Sod 5,000 Unit/0.5 Ml Vial) 5,000 units SQ Q12 SONIA Stop: 05/15/25 21:15 Last Admin: 04/15/25 22:38 Dose: 5,000 units Documented By: JUAN Discontinued Medications Bisacodyl (Bisacodyl 5 Mg Tabec) 5 mg PO NOW STA Stop: 04/15/25 21:19 Last Admin: 04/15/25 22:38 Dose: 5 mg Documented By: JUAN Ceftriaxone Sodium (Rocephin) 2,000 mg in 50 mls @ 100 mls/hr IV NOW STA Stop: 04/15/25 20:04 Last Infusion: 04/15/25 21:13 Dose: Infused Documented By: Admin: 04/15/25 20:41 Dose: 100 mls/hr Documented By: IVONNE Azithromycin (Zithromax) 500 mg in 255 mls @ 127.5 mls/hr IV NOW ONE Stop: 04/15/25 21:34 Last Admin: 04/15/25 21:13 Dose: 127.5 mls/hr Documented By: Imaging Data Radiologist's Impression: Abdomen/Pelvis CT 04/15/25 17:01 CT ABDOMEN and PELVIS without INTRAVENOUS CONTRAST HISTORY: Abdominal pain TECHNIQUE: CT abdomen and pelvis without contrast. IV CONTRAST: None ENTERIC CONTRAST: None. COMPARISON: None FINDINGS: LOWER CHEST: Left basilar atelectasis versus scarring. Cardiomegaly with coronary and valvular calcifications LIVER: Multiple ill-defined hypoattenuations of the liver are suspicious from metastases. GALLBLADDER/BILIARY: Unremarkable gallbladder. No abnormal biliary dilatation. SPLEEN: Unremarkable. PANCREAS: Unremarkable. ADRENALS: Unremarkable. KIDNEYS: Mild hydroureteronephrosis bilaterally without an obstructing stone or an obvious lesion identified. Multiple cortical cysts. No stones or hydronephrosis identified. PERITONEUM/RETROPERITONEUM. No lymphadenopathy by size criteria. No aortic aneurysm. Extensive atherosclerosis. GASTROINTESTINAL: No obstruction. Normal appendix. Colonic diverticulosis without evidence of diverticulitis. Anorectal wall thickening may be due to proctitis, nonspecific REPRODUCTIVE: There is an enlarged nodular prostate gland. There is an apparent infiltration of the prostatic soft tissues along the posterior wall of the urinary bladder with no clear separation between the urinary bladder and the prostate. URINARY BLADDER: Severely distended likely due to outlet obstruction BONES: No acute findings. IMPRESSION: Enlarged, irregularly shaped nodular prostate gland resulting in outlet obstruction of the urinary bladder with severe distention of the urinary bladder. There is an apparent infiltrative appearance of the prostatic tissues along the posterior wall of the urinary bladder. Prostatic malignancy could be present and recommend clinical correlation. Resultant bilateral mild hydroureteronephrosis secondary to the distention of the urinary bladder. Multiple ill-defined hypoattenuations of the liver are suspicious from metastases. Anorectal wall thickening may be due to proctitis, nonspecific Electronically signed by Adalid Baires 04-15-2025 6:[address] 04/15/25 19:01 EXAM: CT chest diagnostic wo con CLINICAL HISTORY: cough TECHNIQUE: Contiguous axial CT images of the chest were acquired without administration of intravenous contrast. Coronal and sagittal reconstructions were obtained. One of the following dose reduction techniques were utilized for this exam: Automated exposure control, adjustment of the mA and/or kV according to patient size, use of iterative reconstruction. COMPARISON: None. FINDINGS: Lungs: The lung parenchyma is clear with no evidence of consolidation, collapse, or focal lesions. No pulmonary nodules or masses are identified. No evidence of interstitial lung disease or emphysema. No pleural effusion or pleural thickening. Left lower lobe thick atelectatic bands. Mediastinum: The mediastinum is normal in size and contour. No mediastinal mass or abnormal lymphadenopathy. The heart size is within normal limits. Hilar Structures: The hilar structures appear normal without enlargement or abnormality. Atheromatous calcifications of the aorta or coronary arteries. Trachea and Main Bronchi: The trachea and main bronchi are patent without evidence of obstruction or abnormality. Chest Wall: The chest wall is unremarkable with no evidence of soft tissue or bony abnormalities. Upper Abdomen: Visualized portions of the spleen, adrenal glands, and kidneys are unremarkable. Multiple bi-lobar hypodense hepatic focal lesions. Bones: Visualized osseous structures are normal, no evidence of fracture or lytic/sclerotic lesions. Thoracic spondylosis. Right acromioclavicular osteoarthritis. IMPRESSION: 1. No evidence of pulmonary nodules, masses, or consolidative patches. 2. Left lower lobe thick atelectatic bands. 3. Multiple hepatic bi-lobar hypodense focal lesions. Need further contrast-enhanced CT scan of the abdomen and pelvis. Electronically signed by Mian Barbosa 04-15-2025 8:51 PM Discharge Plan Visit Data Chief Complaint: Abdominal Pain Stated Complaint: ABD PAIN ED Provider: Arlene Marques Discharge Problem: Urinary retention, Bladder outlet obstruction, LIDIA (acute kidney injury), Acute hyponatremia, Prostate cancer Patient Disposition: Admitted As Inpatient Condition: Fair Discharge Instructions Interventions: ED Discharge Assessment Last Done: 04/15/25 21:17
[2025-04-15 18:21] LABS: Appearance Urine Clear (Clear); Bacteria Urine Automated None Seen (None Seen); Cast Urine Automated 0-2 /lpf (0-2); Epithelial Cell Urine Auto 0-2 /hpf (0-2); Glucose Urine UA Negative (Negative); WBC Urine Automated 0-5 /hpf (0-5)
--- NOTE | 2025-04-15 18:30 | CT Scan Report ---
CT ABDOMEN and PELVIS without INTRAVENOUS CONTRAST HISTORY: Abdominal pain TECHNIQUE: CT abdomen and pelvis without contrast. IV CONTRAST: None ENTERIC CONTRAST: None. COMPARISON: None FINDINGS: LOWER CHEST: Left basilar atelectasis versus scarring. Cardiomegaly with coronary and valvular calcifications LIVER: Multiple ill-defined hypoattenuations of the liver are suspicious from metastases. GALLBLADDER/BILIARY: Unremarkable gallbladder. No abnormal biliary dilatation. SPLEEN: Unremarkable. PANCREAS: Unremarkable. ADRENALS: Unremarkable. KIDNEYS: Mild hydroureteronephrosis bilaterally without an obstructing stone or an obvious lesion identified. Multiple cortical cysts. No stones or hydronephrosis identified. PERITONEUM/RETROPERITONEUM. No lymphadenopathy by size criteria. No aortic aneurysm. Extensive atherosclerosis. GASTROINTESTINAL: No obstruction. Normal appendix. Colonic diverticulosis without evidence of diverticulitis. Anorectal wall thickening may be due to proctitis, nonspecific REPRODUCTIVE: There is an enlarged nodular prostate gland. There is an apparent infiltration of the prostatic soft tissues along the posterior wall of the urinary bladder with no clear separation between the urinary bladder and the prostate. URINARY BLADDER: Severely distended likely due to outlet obstruction BONES: No acute findings. IMPRESSION: Enlarged, irregularly shaped nodular prostate gland resulting in outlet obstruction of the urinary bladder with severe distention of the urinary bladder. There is an apparent infiltrative appearance of the prostatic tissues along the posterior wall of the urinary bladder. Prostatic malignancy could be present and recommend clinical correlation. Resultant bilateral mild hydroureteronephrosis secondary to the distention of the urinary bladder. Multiple ill-defined hypoattenuations of the liver are suspicious from metastases. Anorectal wall thickening may be due to proctitis, nonspecific Electronically signed by Adalid Baires 04-15-2025 6:26 PM
--- NOTE | 2025-04-15 19:19 | History & Physical Report ---
Date of Service April 15, 2025 Assessment & Plan (1) Urinary retention: (2) Abnormal computed tomography of abdomen and pelvis: Plan: Obstructive uropathy likely Patient is 84 year old male with PMH COPD presented to ER with c/o abdominal pain urinary retention x 3 days In ER Gore catheter placed and had 2L urine output. After catheter placed patient reports no further abdominal pain and much improvement of abdominal distention CT Abd/pelvis: Enlarged, irregularly shaped nodular prostate gland resulting in outlet obstruction of the urinary bladder with severe distention of the urinary bladder. There is an apparent infiltrative appearance of the prostatic tissues along the posterior wall of the urinary bladder. Prostatic malignancy could be present and recommend clinical correlation. Resultant bilateral mild hydroureteronephrosis secondary to the distention of the urinary bladder. Multiple ill-defined hypoattenuations of the liver are suspicious from metastases. Anorectal wall thickening may be due to proctitis, nonspecific Suspect underlying prostate malignancy with concern for metastasis as on imaging above Patient will require further imaging. Will hold on IV contrast currently with suspected LIDIA Continue Gore cath Obtain PSA labs Urology consult Oncology consult Concern for patient understanding of his health history and current diagnosis. He reports has a friend who is his emergency contact. Sasha Mima [phone]. #Renal insufficiency Suspect LIDIA BUN: 45, Cr: 1.95. Unsure of recent baseline but Cr: 0.86 on 05/09/2023 Monitor renal functions, avoid nephrotoxic agents when possible #Hyponatremia Na: 126. Unsure of recent baseline. Na: 134 05/07/23 Serum osmolality, urine osmolality, urine sodium pending Suspect multifactorial Monitor #COPD Possible COPD exacerbation Not hypoxic in ER Reports increased productive cough x couple weeks Obtain CT chest w/o contrast r/o pneumonia/mass Incentive spirometer, flutter valve, Mucinex Duonebs Rocephin, Zithromax for now #HTN Continue losartan. Monitor BMP #DM II A1c: 7.1 on 05/08/23 Not on medication A1c in morning DVT Prophylaxis Heparin SQ Admit med tele Full Code as per discussion with pt Follows with [facility] for routine care Pt was seen and care coordinated with Dr Bojorquez. See addendum I spent a total of 65 minutes reviewing notes, outpatient records, labs, medication, coordinating, documenting and providing care for this patient excluding time spent in the performance of separately billed services and excluding time spent by another provider/QHP. History of Present Illness Chief Complaint: abdominal pain Primary Care Provider: [facility] Patient is 84 year old male with PMH COPD presented to ER with c/o abdominal pain x 3 days. Patient states baseline urination is urinary frequency but voiding small amounts. Past 3 days has been unable to void fully and reports "dribbling" urine. He states past 3 days with lower abdominal pain and has noted increased abdominal girth. He also reports constipation for past 3 days. He reports past couple of weeks with increased cough and sputum production and reports was seen at [facility] and started albuterol inhaler. He states he continues with cough but feels like is wheezing less with using the albuterol four times a day. Denies hemoptysis. He reports chronic SOB with exertion and feels this is baseline. States 5 pound weight loss over past 3 months. Denies fever/chills, diaphoresis, N/V/D, SALAZAR, dizziness, syncope, vision changes, neck pain, CP, palpitations, hemoptysis, sore throat, otalgia, rhinorrhea, paresthesias, extremity weakness, extremity edema, rashes, hematuria, dysuria, melena, hematochezia, night sweats. Allergies Allergy/AdvReac Type Severity Reaction Status Date / Time pollen extracts Allergy Intermediate SNEEZING, Verified 04/15/25 18:46 CONGESTION Home Medications Medication Instructions Recorded Confirmed Type Chelated Multivitamin Wo/Iron 1 tab PO DAILY 04/15/25 04/15/25 History Gymnema Abel 1 tab PO DAILY 04/15/25 04/15/25 History Kefir 1 dose PO DAILY 04/15/25 04/15/25 History Akr-T-Glzyur Cysteine Tablet 1 tab PO DAILY 04/15/25 04/15/25 History albuterol sulfate 90 mcg/actuation 2 puff inhalation Q4H PRN 04/15/25 04/15/25 History aerosol inhaler Shortness Of Breath alpha lipoic acid 300 mg capsule 300 mg PO DIRECTED PRN 04/15/25 04/15/25 History NEEDED PER [facility] berberine chloride 500 mg-seaweed 1 cap PO DAILY 04/15/25 04/15/25 History 250 mg-chromium gly 7.5 mcg capsule bilberry 100 mg capsule 100 mg PO DAILY 04/15/25 04/15/25 History cholecalciferol (vitamin D3) 25 25 mcg PO DAILY 04/15/25 04/15/25 History mcg (1,000 unit) capsule (Vitamin D3) coenzyme Q10 100 mg capsule 100 mg PO BID 04/15/25 04/15/25 History (CoQ-10) cyanocobalamin (vitamin B-12) 500 500 mcg PO DAILY 04/15/25 04/15/25 History mcg tablet (Vitamin B-12) flaxseed 1 ea PO DAILY 04/15/25 04/15/25 History hawthorn 500 mg capsule (hawthorn 500 mg PO DAILY 04/15/25 04/15/25 History cochran) losartan 25 mg tablet 12.5 mg PO DAILY 04/15/25 04/15/25 History magnesium oxide 250 mg PO DAILY 04/15/25 04/15/25 History multivitamin with minerals 1 tab PO DAILY 04/15/25 04/15/25 History omega-3 fatty acids 1,000 mg 1,000 mg PO BID 04/15/25 04/15/25 History capsule tamsulosin 0.4 mg capsule (Flomax) 0.4 mg PO DAILY 04/15/25 04/15/25 History tiotropium 2.5 mcg-olodaterol 2.5 2 puff inhalation DAILY 04/15/25 04/15/25 History mcg/actuation mist for inhalation turmeric 400 mg capsule 400 mg PO DAILY 04/15/25 04/15/25 History Past Med/Surg History Problem List (Updated 04/15/25 @ 20:35 by Ifeoma Lofton PA-C) Abnormal computed tomography of abdomen and pelvis Urinary retention Dysconjugate gaze (Acute) Lyme disease (Acute) Eye problems Medical History COPD (chronic obstructive pulmonary disease) Cranial nerve III palsy, partial, right Surgical History History of hernia repair Social History Smoking Status: Never smoker Tobacco Type: Cigarettes Age Quit Using Tobacco: 70; Hx Alcohol Use: No Hx Substance Use: No Preferred Language: Belarusian Communication Ability: Effective Venetian Blind Cleaner Required: No Beliefs That Will Affect Care: None Current Living Situation: Alone Feels Safe at Home: Yes Assistive Devices: None Review of Systems Review of Systems: All systems reviewed & are unremarkable except as noted in HPI & below Physical Exam Physical Exam: General: no distress, obese elderly male Head: normocephalic, atraumatic Eyes: PERRL, EOM's intact, conjunctiva non-injected, anicteric ENT: normal inspection external ears, nose, mucous membranes moist Neck: supple, trachea midline, non-tender Lungs: no respiratory distress, +rhonchi that clears after coughing, no wheezing, rales noted CV: RRR, no murmur, no pretibial edema Abd: normal BS, soft, non-tender to palpation at this time with Gore catheter in place Ext: no cyanosis, no calf tenderness Neuro: A&O x 3, no focal deficits noted, normal affect Skin: warm, dry Results & Data Results & Data Vital Signs (Past 12 Hours) Vital Signs Temp Pulse Pulse Resp BP BP Pulse Ox 04/15/25 18:36 88 25 H 145/79 H 95 04/15/25 18:13 96 H 04/15/25 18:12 94 H 04/15/25 18:09 97 H 24 148/83 H 95 04/15/25 17:21 94 H 26 H 154/101 H 95 04/15/25 15:45 37.2 C 92 H 19 112/51 L O2 Del Method 04/15/25 18:36 Room Air 04/15/25 18:13 04/15/25 18:12 04/15/25 18:09 Room Air 04/15/25 17:21 Room Air 04/15/25 15:45 Room Air Laboratory Results Short CBC 04/15/25 Range/Units 16:10 WBC 14.24 H (4.8-10.8) K/ul Hgb 12.7 L (14.0-18.0) g/dl Hct 37.3 L (42.0-52.0) % Plt Count 267 (130-400) K/uL BMP 04/15/25 16:10 Sodium 126 L Potassium 4.8 Chloride 91 L Carbon Dioxide 26 BUN 45 H Creatinine 1.95 H Glucose 113 H Calcium 9.3 Liver Function 04/15/25 Range/Units 16:10 Total Bilirubin 1.1 H (0.2-1.0) mg/dl AST 35 (13-39) U/L ALT 49 (7-52) U/L Alkaline Phosphatase 87 (34-104) U/L Albumin 4.0 (3.4-5.0) gm/dl Urine 04/15/25 Range/Units 18:00 Urine Color Yellow Urine Appearance Clear (Clear) Urine pH 5.5 (4.5-7.5) Ur Specific Adams 1.013 (1.000-1.030) Urine Protein Negative (Negative) Urine Glucose (UA) Negative (Negative) Diagnostic Findings Abdomen/Pelvis CT 04/15/25 17:01 CT ABDOMEN and PELVIS without INTRAVENOUS CONTRAST HISTORY: Abdominal pain TECHNIQUE: CT abdomen and pelvis without contrast. IV CONTRAST: None ENTERIC CONTRAST: None. COMPARISON: None FINDINGS: LOWER CHEST: Left basilar atelectasis versus scarring. Cardiomegaly with coronary and valvular calcifications LIVER: Multiple ill-defined hypoattenuations of the liver are suspicious from metastases. GALLBLADDER/BILIARY: Unremarkable gallbladder. No abnormal biliary dilatation. SPLEEN: Unremarkable. PANCREAS: Unremarkable. ADRENALS: Unremarkable. KIDNEYS: Mild hydroureteronephrosis bilaterally without an obstructing stone or an obvious lesion identified. Multiple cortical cysts. No stones or hydronephrosis identified. PERITONEUM/RETROPERITONEUM. No lymphadenopathy by size criteria. No aortic aneurysm. Extensive atherosclerosis. GASTROINTESTINAL: No obstruction. Normal appendix. Colonic diverticulosis without evidence of diverticulitis. Anorectal wall thickening may be due to proctitis, nonspecific REPRODUCTIVE: There is an enlarged nodular prostate gland. There is an apparent infiltration of the prostatic soft tissues along the posterior wall of the urinary bladder with no clear separation between the urinary bladder and the prostate. URINARY BLADDER: Severely distended likely due to outlet obstruction BONES: No acute findings. IMPRESSION: Enlarged, irregularly shaped nodular prostate gland resulting in outlet obstruction of the urinary bladder with severe distention of the urinary bladder. There is an apparent infiltrative appearance of the prostatic tissues along the posterior wall of the urinary bladder. Prostatic malignancy could be present and recommend clinical correlation. Resultant bilateral mild hydroureteronephrosis secondary to the distention of the urinary bladder. Multiple ill-defined hypoattenuations of the liver are suspicious from metastases. Anorectal wall thickening may be due to proctitis, nonspecific Electronically signed by Adalid Baires 04-15-2025 6:26 PM Code Status & VTE Plan VTE Prophylaxis Plan VTE Prophylaxis will be ordered: Yes Supervising Physician Co-Signing Physician Notes I have seen and discussed the case with the collaborating advanced practitioner. I agree with the above H&P. I have reviewed and confirmed the patients medical history, the findings on physical examination, and the patients diagnosis and treatment plan with Rolly LEGER and agree with the information documented. In short, Mr. Day is an 84 yo gentleman with history of COPD , DMTII, and HTN who is admitted for urinary retention iso likely malignancy, thought to be prostatic in origin. Patient does not have issues with urination per his report until the last "3 days" when he "didn't really pee at all." He reports much relief with the gore in place. Discussed his imaging findings and he states he hopes "they can fix it." Exam notable for a pleasant and conversational gentleman, edentulous. regular, tachycardic on exam, scattered wheeze on auscultation, but no distress. #Urinary retention, likely obstructive uropathy iso possible malignancy #Suspect LIDIA, unknown baseline maintain gore Urology and oncology consulted PSA ordered #COPD doesn't appear to be in exacerbation, but noting some cough CT chest for further imaging given AB/P findings CTX and azthiro for now given wbc (likely reactive iso retention) resume home inhalers procal ordered I spent a total of 20 minutes coordinating, documenting, and providing care for this patient excluding time spent in the performance of separately billed services. All of the aforementioned completed outside of collaborating with the assigned advanced practitioner for a full treatment plan. I have reviewed the advanced practitioner's documentation, and I agree with, and take responsibility for the plan of care
[2025-04-15] MEDS: cefTRIAXone SODIUM 2,000 MG/50 ML BAG IV STA (20:41)
--- NOTE | 2025-04-15 20:51 | CT Scan Report ---
EXAM: CT chest diagnostic wo con CLINICAL HISTORY: cough TECHNIQUE: Contiguous axial CT images of the chest were acquired without administration of intravenous contrast. Coronal and sagittal reconstructions were obtained. One of the following dose reduction techniques were utilized for this exam: Automated exposure control, adjustment of the mA and/or kV according to patient size, use of iterative reconstruction. COMPARISON: None. FINDINGS: Lungs: The lung parenchyma is clear with no evidence of consolidation, collapse, or focal lesions. No pulmonary nodules or masses are identified. No evidence of interstitial lung disease or emphysema. No pleural effusion or pleural thickening. Left lower lobe thick atelectatic bands. Mediastinum: The mediastinum is normal in size and contour. No mediastinal mass or abnormal lymphadenopathy. The heart size is within normal limits. Hilar Structures: The hilar structures appear normal without enlargement or abnormality. Atheromatous calcifications of the aorta or coronary arteries. Trachea and Main Bronchi: The trachea and main bronchi are patent without evidence of obstruction or abnormality. Chest Wall: The chest wall is unremarkable with no evidence of soft tissue or bony abnormalities. Upper Abdomen: Visualized portions of the spleen, adrenal glands, and kidneys are unremarkable. Multiple bi-lobar hypodense hepatic focal lesions. Bones: Visualized osseous structures are normal, no evidence of fracture or lytic/sclerotic lesions. Thoracic spondylosis. Right acromioclavicular osteoarthritis. IMPRESSION: 1. No evidence of pulmonary nodules, masses, or consolidative patches. 2. Left lower lobe thick atelectatic bands. 3. Multiple hepatic bi-lobar hypodense focal lesions. Need further contrast-enhanced CT scan of the abdomen and pelvis. Electronically signed by Mian Barbosa 04-15-2025 8:51 PM
[2025-04-15] MEDS: AZITHROMYCIN 500 MG/255 ML BAG IV ONE (21:13)
[2025-04-15] MEDS ORDERED: POLYETHYLENE (MIRALAX) 17 GM PACK PO PRN (21:16)
[2025-04-15] MEDS ORDERED: ACETAMINOPHEN 325 MG TAB PO PRN (21:16)
[2025-04-15] MEDS ORDERED: MAGNESIUM HYDROXIDE SUSP 30 ML UDC PO PRN (21:16)
[2025-04-15] MEDS: HEPARIN SOD 5,000 UNIT/0.5 ML VIAL SQ SCH (22:38)
[2025-04-15] MEDS: guaiFENesin 600 MG TABCR PO SCH (22:38)
[2025-04-15] MEDS: DOCUSATE SODIUM 100 MG CAP PO SCH (22:38)
[2025-04-16] MEDS: ALBUT/IPRATROP 3MG/0.5MG NEB 3 ML VIAL NEB SCH (01:04)
[2025-04-16 05:42] LABS: Hematocrit (blood only) 35.2 % (42.0-52.0); Hemoglobin 11.8 g/dl (14.0-18.0); Immature Granulocytes # (auto) 0.10 K/uL (0.01-0.20); Immature Granulocytes % (auto) 1.0 %; Mean Corpuscular Hemoglobin 29.9 pg (25.0-34.0); Mean Corpuscular Volume 89.1 fL (80.0-100.0); Platelet Count 234 K/uL (130-400); RDW Standard Deviation 44.9 fL (36.4-46.3); Red Blood Count 3.95 M/uL (4.70-6.10); White Blood Count 9.84 K/ul (4.8-10.8)
[2025-04-16 06:34] LABS: Anion Gap 7.0 (3-11); Blood Urea Nitrogen 35.0 mg/dl (6-23); Calcium 9.2 mg/dl (8.6-10.3); Carbon Dioxide 28.0 mmol/L (21-32); Chloride 101.0 mmol/L (98-107); Creatinine Clr Calc Pharmacy 43.9 ml/min; Glucose 96.0 mg/dl (70-99(Fasting)); Magnesium 2.4 mg/dl (1.7-2.4); Potassium 3.9 mmol/L (3.5-5.1); Sodium 136.0 mmol/L (136-145)
[2025-04-16 07:37] LABS: Hemoglobin A1C 6.8 % (4.5-5.6)
[2025-04-16] MEDS: CHOLECALCIFEROL 25 MCG (1000 UNITS) TAB PO SCH (08:56)
[2025-04-16] MEDS: TAMSULOSIN HCL 0.4 MG CAP PO SCH (08:57)
[2025-04-16] MEDS: CYANOCOBALAMIN (B-12) 500 MCG TABLET PO SCH (08:57)
[2025-04-16] MEDS: LOSARTAN POTASSIUM 25 MG TAB PO SCH (08:57)
--- NOTE | 2025-04-16 10:59 | Urology Consultation ---
Date of Consultation April 16, 2025 Assessment & Plan (1) Urinary retention: Urinary retention currently managed with Denny catheter. Would recommend maintaining this at least 1 week for bladder rest. He has been prescribed tamsulosin, and I would recommend he continue this medication. Could also cons ider starting finasteride. Urology can coordinate outpatient visit for voiding trial. Most likely underlying cause seems to be enlarged prostate, however I think this has been progressing some time given the extremely high volume seen on his bladder on CT scan. He may be a candidate for an outlet procedure, although there is a decent chance that he has an atonic bladder at this point and may ne ed chronic management with catheterization or CIC. Urinalysis without any significant markers for underlying infection. I think would be reasonable to hold off antibiotics for now unless he develops fevers or infectious symptoms. (2) Elevated PSA: PSA is elevated and findings on CT scan are concerning for prostate cancer. Ideally he should undergo biopsy to confirm this diagnosis. Typically a prostate biopsy would be coordinated in the urology office as an outpatient, although if there is concern for possible metastatic disease to the liver, it may be worth biopsying one of the liver areas as well. (3) LIDIA (acute kidney injury): Creatinine and electrolytes are all improving with Denny catheter in place. Would maintain catheter for now and continue to monitor. I will defer to the medicine team for management of electrolyte abnormalities (4) Hematuria: Small amount of hematuria is likely related to rapid decompression of an overly distended bladder, possible traumatic catheterization. Seems to have cleared at this point. If hematuria returns, we can consider full workup. Plan No plan for acute intervention at this time, however pending clinical course, he will likely require biopsy of some sort. Urology will follow along. History of Present Illness Reason for Consultation: Urinary retention, elevated PSA Attending Physician: Juan Negro MD History of Present Illness This is an 84-year-old male who presented to the emergency department on 04/15/2025 with abdominal distention and pain. This had been progressive for 3 days, and he feels like it may have been associated with trying to eat more protein. He also reported not having a bowel movement in several days. Workup in the ED demonstrated leukocytosis (WBC 14.24), sodium 126, chloride 91, creatinine 1.95. PSA was noted to be elevated at 8.283. A urinalysis was performed which demonstrated no nitrites, negative leukocyte esterase, no bacteria were seen. A CT scan of the abdomen and pelvis was performed. I independently reviewed these images from 04/15/2025. Both kidneys are in normal position. There is hydronephrosis and hydroureter on both sides extending down to the level of the bladder. His bladder is markedly distended. Prostate is heterogeneous with a fair amount of calcification on the left side potentially extending beyond the contour of the prostate. Denny catheter was placed in the emergency department with subsequent improvement in his electrolytes and creatinine. He also reported that the pain improved with drainage. Urology was consulted regarding urinary retention. It is not clear whether he has seen a urologist in the past. There is no known family history of m alignancy. He denies any history of hematuria or dysuria. He denies any prior episodes of urinary retention. Allergies Allergy/AdvReac Type Severity Reaction Status Date / Time pollen extracts Allergy Intermediate SNEEZING, Verified 04/15/25 18:46 CONGESTION Home Medications Medication Instructions Recorded Confirmed Type Chelated Multivitamin Wo/Iron 1 tab PO DAILY 04/15/25 04/15/25 History Gymnema Abel 1 tab PO DAILY 04/15/25 04/15/25 History Kefir 1 dose PO DAILY 04/15/25 04/15/25 History Xlw-R-Ujabhv Cysteine Tablet 1 tab PO DAILY 04/15/25 04/15/25 History albuterol sulfate 90 mcg/actuation 2 puff inhalation Q4H PRN 04/15/25 04/15/25 History aerosol inhaler Shortness Of Breath alpha lipoic acid 300 mg capsule 300 mg PO DIRECTED PRN 04/15/25 04/15/25 History NEEDED PER [facility] berberine chloride 500 mg-seaweed 1 cap PO DAILY 04/15/25 04/15/25 History 250 mg-chromium gly 7.5 mcg capsule bilberry 100 mg capsule 100 mg PO DAILY 04/15/25 04/15/25 History cholecalciferol (vitamin D3) 25 25 mcg PO DAILY 04/15/25 04/15/25 History mcg (1,000 unit) capsule (Vitamin D3) coenzyme Q10 100 mg capsule 100 mg PO BID 04/15/25 04/15/25 History (CoQ-10) cyanocobalamin (vitamin B-12) 500 500 mcg PO DAILY 04/15/25 04/15/25 History mcg tablet (Vitamin B-12) flaxseed 1 ea PO DAILY 04/15/25 04/15/25 History hawthorn 500 mg capsule (hawthorn 500 mg PO DAILY 04/15/25 04/15/25 History cochran) losartan 25 mg tablet 12.5 mg PO DAILY 04/15/25 04/15/25 History magnesium oxide 250 mg PO DAILY 04/15/25 04/15/25 History multivitamin with minerals 1 tab PO DAILY 04/15/25 04/15/25 History omega-3 fatty acids 1,000 mg 1,000 mg PO BID 04/15/25 04/15/25 History capsule tamsulosin 0.4 mg capsule (Flomax) 0.4 mg PO DAILY 04/15/25 04/15/25 History tiotropium 2.5 mcg-olodaterol 2.5 2 puff inhalation DAILY 04/15/25 04/15/25 History mcg/actuation mist for inhalation turmeric 400 mg capsule 400 mg PO DAILY 04/15/25 04/15/25 History Patient History Medical History COPD (chronic obstructive pulmonary disease) Cranial nerve III palsy, partial, right Surgical History History of hernia repair Social History Smoking Status: Former smoker Tobacco Type: Cigarettes Age Quit Using Tobacco: 70; Hx Alcohol Use: No Hx Substance Use: No Preferred Language: Kazakh Communication Ability: Effective Sandwich Hand Required: No Beliefs That Will Affect Care: None Current Living Situation: Alone Feels Safe at Home: Yes Safety Concerns: Feels Safe At This Time Assistive Devices: None Review of Systems Review of Systems: 10 point review of systems negative exce pt for otherwise indicated. Physical Exam Physical Exam: Resting in bed Constitutional: well developed and well nourished; no acute distress Eyes: + anicteric sclerae; pupils not irregula r Respiratory: normal respiratory effort; no respiratory distress, does not use accessory muscles and no cough Cardiovascular: well perfused Gastrointestinal (Abdomen): Inspection/Auscultation: abdomen normal to inspection; abdomen not distended Musculoskeletal: Extremities: extremities normal to inspection Skin: normal turgor; no rashes and no lesions Neurologic: moves all extremities and awake Psychiatric: Orientation: alert and oriented x 3 Genitourinary: Denny catheter in place draining well, urine in the bag with red tinge, the tubing is clear Results & Data Vital Signs (Past 12 Hours) Vital Signs Pulse Pulse Resp BP BP Pulse Ox O2 Del Method 04/16/25 09:03 Room Air 04/16/25 08:37 101 H 04/16/25 08:00 88 16 112/64 95 Room Air 04/16/25 06:56 82 22 93 Room Air 04/16/25 04:00 81 20 100/67 94 04/16/25 03:00 84 18 115/67 93 Room Air 04/16/25 02:00 81 20 111/68 91 Room Air 04/16/25 01:00 85 18 122/77 93 Room Air 04/16/25 00:00 83 20 117/67 93 Room Air 04/15/25 23:12 88 24 140/75 95 Room Air PG Care Time/CCT Total # of Minutes Spent Total Time Spent with Patient: Total time spent is greater than 50% in coordination of care (as documented) at patient's floor/unit and/or counseling patient: Coding Level of Care Code 41503 INT INP/OBS CARE 2/55MIN Diagnoses Urinary retention R33.9 Elevated PSA R97.20 LIDIA (acute kidney injury) N17.9 Hematuria R31.9
--- NOTE | 2025-04-16 17:03 | Hospitalist Progress Note ---
Date of Service April 16, 2025 Assessment & Plan (1) Urinary retention: (2) Abnormal computed tomography of abdomen and pelvis: Plan: per admitting service notes with addendum: #PROSTATE ENLARGEMENT SUSPECTED PROSTATE CANCER, POSSIBLE LIVER METS OBSTRUCTIVE UROPATHY, HYDRONEPHROSIS SECONDARY TO ABOVE Obstructive uropathy likely Patient is 84 year old male with PMH COPD presented to ER with c/o abdominal pain urinary retention x 3 days In ER Gore catheter placed and had 2L urine output. After catheter placed patient reports no further abdominal pain and much improvement of abdominal distention CT Abd/pelvis: Enlarged, irregularly shaped nodular prostate gland resulting in outlet obstruction of the urinary bladder with severe distention of the urinary bladder. There is an apparent infiltrative appearance of the prostatic tissues along the posterior wall of the urinary bladder. Prostatic malignancy could be present and recommend clinical correlation. Resultant bilateral mild hydroureteronephrosis secondary to the distention of the urinary bladder. Multiple ill-defined hypoattenuations of the liver are suspicious from metastases. Anorectal wall thickening may be due to proctitis, nonspecific Suspect underlying prostate malignancy with concern for metastasis as on imaging above Patient will require further imaging. Will hold on IV contrast currently with suspected LIDIA Continue Gore cath Obtain PSA labs Urology consult Oncology consult Concern for patient understanding of his health history and current diagnosis. He reports has a friend who is his emergency contact. Sasha Guillermo [phone]. 04/16 gore catheter: no issues crea back to normal PSA 8.2 Urologist consulted- Dr. Zavala: continue Gore, trial of voiding as outpatient, prostate biopsy as outpatient, Tamsulosin + Finasteride monitor for hematuria #Renal insufficiency Suspect LIDIA BUN: 45, Cr: 1.95. Unsure of recent baseline but Cr: 0.86 on 05/09/2023 Monitor renal functions, avoid nephrotoxic agents when possible -- crea back to baseline after Gore Cath placed #Hyponatremia Na: 126. Unsure of recent baseline. Na: 134 05/07/23 Serum osmolality, urine osmolality, urine sodium pending Suspect multifactorial Monitor -- resolved #COPD Possible COPD exacerbation Not hypoxic in ER Reports increased productive cough x couple weeks Obtain CT chest w/o contrast r/o pneumonia/mass Incentive spirometer, flutter valve, Mucinex Duonebs Rocephin, Zithromax for now --CT chest: 1. No evidence of pulmonary nodules, masses, or consolidative patches. 2. Left lower lobe thick atelectatic bands. 3. Multiple hepatic bi-lobar hypodense focal lesions. Need further contrast-enhanced CT scan of the abdomen and pelvis. -- Prednisone 40mg po daily sputum culture ordered, Covid + flu + RSV test Continue ceftriaxone plus azithromycin #HTN Continue losartan. Monitor BMP #DM II A1c: 7.1 on 05/08/23 Not on medication A1c 6.8 DVT Prophylaxis Heparin SQ Admit med tele Full Code as per discussion with pt [facility] Admission and Anticipated Discharge Date Admission Date: April 15, 2025 Subjective ff up for Prostate enlargement, obstructive uropathy, COPD exacerbation, etc. seen resting in bed, comfortable, in good spirits States he feels better overall Lower abdominal discomfort much better after Gore catheter placement No fevers or chills Breathing also improving now has productive cough, with yellow sputum No chest pain No other new symptoms Review of Systems Review of Systems: all noted and negative except for above Physical Exam Physical Exam: General- oriented x 3, not in distress, speaks in sentences with no effort or accessory muscle use Eyes- anicteric Neck- no JVD Lungs- faint wheezing lower lung francisco no crackles Heart- normal rate, regular rhythm; no murmurs Abdomen- normal bowel sounds, nondistended, soft, nontender Gore catheter in place: Extremities- no pretibial edema, no calf tenderness Neuro- alert, oriented x 3; no gross focal neurologic deficits Skin- warm & dry Results & Data Results & Data Vital Signs (Past 12 Hours) Vital Signs Pulse Pulse Resp BP Pulse Ox O2 Del Method 04/16/25 14:00 88 16 116/71 93 Room Air 04/16/25 13:20 92 H 22 93 Room Air 04/16/25 09:03 Room Air 04/16/25 08:37 101 H 04/16/25 08:00 88 16 112/64 95 Room Air 04/16/25 06:56 82 22 93 Room Air all noted and reviewed including below
[2025-04-16] MEDS: cefTRIAXone SODIUM 2,000 MG/50 ML BAG IV SCH (17:50)
[2025-04-16] MEDS ORDERED: DEXTROSE 50% 50 ML SYRINGE IV PRN (17:59)
[2025-04-16] MEDS ORDERED: GLUCOSE 40% GEL 15 GM TUBE PO PRN (17:59)
[2025-04-16] MEDS ORDERED: CARBOHYDRATES FOR HYPOGLYCEMIA PO PRN (17:59)
[2025-04-16] MEDS ORDERED: GLUCAGON FOR INJ 1 MG VIAL SQ PRN (17:59)
[2025-04-16] MEDS ORDERED: GLUCOSE 10 TAB/TUBE PO PRN (17:59)
[2025-04-16] MEDS: predniSONE 20 MG TAB PO ONE (19:03)
[2025-04-16] MEDS: AZITHROMYCIN 500 MG/255 ML BAG IV SCH (19:47)
[2025-04-16 20:08] LABS: Influenza A virus by PCR Negative (Neg); Influenza B virus by PCR Negative (Neg); SARS CoV2 RNA(COVID-19) Ceph NEGATIVE (Negative)
[2025-04-16] MEDS: INSULIN ASPART PER UNIT CHARGE SC SCH (20:17)
[2025-04-17 08:24] LABS: Hematocrit (blood only) 33.6 % (42.0-52.0); Hemoglobin 11.3 g/dl (14.0-18.0); Immature Granulocytes # (auto) 0.10 K/uL (0.01-0.20); Immature Granulocytes % (auto) 1.3 %; Mean Corpuscular Hemoglobin 30.3 pg (25.0-34.0); Mean Corpuscular Volume 90.1 fL (80.0-100.0); Platelet Count 231 K/uL (130-400); RDW Standard Deviation 45.6 fL (36.4-46.3); Red Blood Count 3.73 M/uL (4.70-6.10); White Blood Count 7.96 K/ul (4.8-10.8)
[2025-04-17 08:51] LABS: Alanine Aminotransferase 41.0 U/L (7-52); Albumin Globulin Ratio 1.2 (0.9-2); Alkaline Phosphatase 92.0 U/L (34-104); Anion Gap 5.0 (3-11); Bilirubin,Total 0.4 mg/dl (0.2-1.0); Blood Urea Nitrogen 29.0 mg/dl (6-23); Calcium 9.1 mg/dl (8.6-10.3); Carbon Dioxide 29.0 mmol/L (21-32); Chloride 102.0 mmol/L (98-107); Creatinine Clr Calc Pharmacy 56.3 ml/min; Globulin 3.0 gm/dl (2.5-4.0); Glucose 189.0 mg/dl (70-99(Fasting)); Potassium 4.3 mmol/L (3.5-5.1); Sodium 136.0 mmol/L (136-145); Total Protein 6.5 gm/dl (6.0-8.3)
[2025-04-17] MEDS: FINASTERIDE 5 MG TAB PO SCH (09:45)
--- NOTE | 2025-04-17 10:08 | Urology Progress Note ---
Date of Service April 17, 2025 Assessment & Plan (1) Elevated PSA: (2) LIDIA (acute kidney injury): (3) Bladder outlet obstruction: (4) Urinary retention: Plan Urinary retention currently managed with indwelling Denny catheter. Would recommend keeping this in place for approximately 1 week. Urology will coordinate outpatient follow-up for voiding trial and discussing next steps. Creatinine has returned to normal range. Suspect his LIDIA was related to urinary retention/bladder outlet obstruction. We reviewed his elevated PSA and that it is concerning for potential underlying prostate cancer. We discussed the likely need for a prostate biopsy. Will plan to coordinate this through the office, although could potentially ask about percutaneous liver biopsy as well. No plan for acute intervention at this time. Urology will arrange outpatient follow-up. Will sign off for now, please call with any questions or concerns. Admission and Anticipated Discharge Date Admission Date: April 15, 2025 Subjective Feeling well, denies any issues with Denny catheter Creatinine continues to decrease (1.00 down from through 1.35 yesterday) Denies any fevers or chills, tolerating a diet without any issue. Physical Exam Physical Exam: Resting in bed, NAD Denny catheter draining clear yellow urine Results & Data Vital Signs (Past 12 Hours) Vital Signs Temp Pulse Pulse Resp BP Pulse Ox O2 Del Method 04/17/25 09:30 90 18 98 Room Air 04/17/25 07:57 36.8 C 83 18 130/67 93 Room Air 04/17/25 04:00 36.6 C 86 18 124/65 92 Room Air 04/17/25 00:23 92 H 18 92 Room Air 04/16/25 23:14 36.8 C 91 H 18 124/69 92 Room Air 04/16/25 22:21 90 FiO2 04/17/25 09:30 21 04/17/25 07:57 04/17/25 04:00 04/17/25 00:23 04/16/25 23:14 04/16/25 22:21 PG Care Time/CCT Total # of Minutes Spent Total Time Spent with Patient: Total time spent is greater than 50% in coordination of care (as documented) at patient's floor/unit and/or counseling patient: Coding Level of Care Code 36640 SUB INP/OBS CARE 10/02MIN Diagnoses Elevated PSA R97.20 LIDIA (acute kidney injury) N17.9 Bladder outlet obstruction N32.0 Urinary retention R33.9
--- NOTE | 2025-04-17 13:46 | Oncology Consultation ---
Date of Consultation April 17, 2025 Assessment & Plan (1) Prostate cancer: Given the elevated PSA, appearance of prostate on the CT scan there are high concerns for metastatic prostate cancer. Definitely recommend prostatic biopsy and agreed with my urology colleagues. Treatment can be initiated on an out patient basis once the patient is stabilized and urinary outlet obstruction is reversed. (2) Liver lesion: Liver lesions noticed on the CT of the abdomen pelvis. There may be an unrelated process given that the PSA is only 8. at this point will recommend liver biopsy independent of the prostatic biopsy given that we may be dealing with 2 different malignancies. Plan Thank you for this interesting oncological consult. A total of 60 minutes were spent in counseling, coordination of care, review of prior records. History of Present Illness Reason for Consultation: Elevated PSA concerns for prostate cancer ? liver metastatic Attending Physician: Juan Negro MD History of Present Illness the patient is a very pleasant 84-year-old , who comes to [facility] with urinary retention. On admission to the hospital he had a CT of the abdomen pelvis which revealed enlarged/irregularly shaped prostate gland resulting in urinary outlet obstruction there was also multiple ill-defined hypoattenuating lesions in the liver which are suspicious for metastatic disease. Urology was consulted and they recommended a prostatic biopsy. His PSA was elevated on admission. There are high concerns for underlying prostatic malignancy with possible mets to the liver. Medical oncology has been consulted to assist in management of this patient with suspected prostate cancer as well as liver metastatic disease. Allergies Allergy/AdvReac Type Severity Reaction Status Date / Time pollen extracts Allergy Intermediate SNEEZING, Verified 04/15/25 18:46 CONGESTION Home Medications Medication Instructions Recorded Confirmed Type Chelated Multivitamin Wo/Iron 1 tab PO DAILY 04/15/25 04/15/25 History Gymnema Abel 1 tab PO DAILY 04/15/25 04/15/25 History Kefir 1 dose PO DAILY 04/15/25 04/15/25 History [id number] Cysteine Tablet 1 tab PO DAILY 04/15/25 04/15/25 History albuterol sulfate 90 mcg/actuation 2 puff inhalation Q4H PRN 04/15/25 04/15/25 History aerosol inhaler Shortness Of Breath alpha lipoic acid 300 mg capsule 300 mg PO DIRECTED PRN 04/15/25 04/15/25 History [facility] berberine chloride 500 mg-seaweed 1 cap PO DAILY 04/15/25 04/15/25 History 250 mg-chromium gly 7.5 mcg capsule bilberry 100 mg capsule 100 mg PO DAILY 04/15/25 04/15/25 History cholecalciferol (vitamin D3) 25 25 mcg PO DAILY 04/15/25 04/15/25 History mcg (1,000 unit) capsule (Vitamin D3) coenzyme Q10 100 mg capsule 100 mg PO BID 04/15/25 04/15/25 History (CoQ-10) cyanocobalamin (vitamin B-12) 500 500 mcg PO DAILY 04/15/25 04/15/25 History mcg tablet (Vitamin B-12) flaxseed 1 ea PO DAILY 04/15/25 04/15/25 History hawthorn 500 mg capsule (hawthorn 500 mg PO DAILY 04/15/25 04/15/25 History cochran) losartan 25 mg tablet 12.5 mg PO DAILY 04/15/25 04/15/25 History magnesium oxide 250 mg PO DAILY 04/15/25 04/15/25 History multivitamin with minerals 1 tab PO DAILY 04/15/25 04/15/25 History omega-3 fatty acids 1,000 mg 1,000 mg PO BID 04/15/25 04/15/25 History capsule tamsulosin 0.4 mg capsule (Flomax) 0.4 mg PO DAILY 04/15/25 04/15/25 History tiotropium 2.5 mcg-olodaterol 2.5 2 puff inhalation DAILY 04/15/25 04/15/25 History mcg/actuation mist for inhalation turmeric 400 mg capsule 400 mg PO DAILY 04/15/25 04/15/25 History Patient History Medical History COPD (chronic obstructive pulmonary disease) Cranial nerve III palsy, partial, right Surgical History History of hernia repair Social History Smoking Status: Former smoker Tobacco Type: Cigarettes Age Quit Using Tobacco: 70; Hx Alcohol Use: No Hx Substance Use: No Preferred Language: Croatian Communication Ability: Effective Translator Interpreter Required: No Beliefs That Will Affect Care: None Current Living Situation: Alone Feels Safe at Home: Yes Assistive Devices: Cane Review of Systems Review of Systems: All systems reviewed & are unremarkable except as noted in HPI & below Constitutional: as per Subjective / HPI Eyes: as per Subjective / HPI Ear, Nose, Mouth, Throat: as per Subjective / HPI Respiratory: as per Subjective / HPI Cardiovascular: as per Subjective / HPI Gastrointestinal: as per Subjective / HPI Genitourinary: + as per Subjective / HPI Musculoskeletal: as per Subjective / HPI Integumentary: as per Subjective / HPI Neurologic: as per Subjective / HPI Physical Exam Constitutional: WD/WN, vitals as above Eyes: PERRL, conjunctivae normal, anicteric sclerae ENMT: external ear and nose normal, oropharynx normal Neck: trachea midline, no thyromegaly Respiratory: normal respiratory effort, lungs clear to auscultation Cardiovascular: RRR, no murmur, no edema Gastrointestinal (Abdomen): normal bowel sounds, soft, nontender, no hepatosplenomegaly Musculoskeletal: no cyanosis or clubbing, extremities motor strength 5/5 Skin: no rashes, warm and dry Neurologic: patellar DTR's 2+ bilat, sensation intact Psychiatric: A+Ox3, euthymic affect Results & Data Vital Signs (Past 12 Hours) Vital Signs Temp Pulse Pulse Resp BP Pulse Ox O2 Del Method 04/17/25 13:13 85 18 92 Room Air 04/17/25 11:46 36.5 C 86 18 125/66 92 Room Air 04/17/25 11:00 88 04/17/25 11:00 Room Air 04/17/25 09:30 90 18 98 Room Air 04/17/25 07:57 36.8 C 83 18 130/67 93 Room Air 04/17/25 04:00 36.6 C 86 18 124/65 92 Room Air FiO2 04/17/25 13:13 04/17/25 11:46 04/17/25 11:00 04/17/25 11:00 04/17/25 09:30 21 04/17/25 07:57 04/17/25 04:00
--- NOTE | 2025-04-17 16:17 | Hospitalist Progress Note ---
Date of Service April 17, 2025 Assessment & Plan (1) Urinary retention: (2) Abnormal computed tomography of abdomen and pelvis: Plan: per admitting service notes with addendum: #PROSTATE ENLARGEMENT SUSPECTED PROSTATE CANCER, POSSIBLE LIVER METS OBSTRUCTIVE UROPATHY, HYDRONEPHROSIS SECONDARY TO ABOVE Obstructive uropathy likely Patient is 84 year old male with PMH COPD presented to ER with c/o abdominal pain urinary retention x 3 days In ER Gore catheter placed and had 2L urine output. After catheter placed patient reports no further abdominal pain and much improvement of abdominal distention CT Abd/pelvis: Enlarged, irregularly shaped nodular prostate gland resulting in outlet obstruction of the urinary bladder with severe distention of the urinary bladder. There is an apparent infiltrative appearance of the prostatic tissues along the posterior wall of the urinary bladder. Prostatic malignancy could be present and recommend clinical correlation. Resultant bilateral mild hydroureteronephrosis secondary to the distention of the urinary bladder. Multiple ill-defined hypoattenuations of the liver are suspicious from metastases. Anorectal wall thickening may be due to proctitis, nonspecific Suspect underlying prostate malignancy with concern for metastasis as on imaging above Patient will require further imaging. Will hold on IV contrast currently with suspected LIDIA Continue Gore cath Obtain PSA labs Urology consult Oncology consult Concern for patient understanding of his health history and current diagnosis. He reports has a friend who is his emergency contact. Sasha Guillermo [phone]. 04/17 gore catheter: no issues crea back to normal PSA 8.2 Urologist consulted- Dr. Zavala: continue Gore, trial of voiding as outpatient, prostate +liver biopsy as outpatient, Tamsulosin + Finasteride monitor for hematuria #Renal insufficiency Suspect LIDIA BUN: 45, Cr: 1.95. Unsure of recent baseline but Cr: 0.86 on 05/09/2023 Monitor renal functions, avoid nephrotoxic agents when possible -- crea back to baseline after Gore Cath placed #Hyponatremia Na: 126. Unsure of recent baseline. Na: 134 05/07/23 Serum osmolality, urine osmolality, urine sodium pending Suspect multifactorial Monitor -- resolved #COPD Possible COPD exacerbation Not hypoxic in ER Reports increased productive cough x couple weeks Obtain CT chest w/o contrast r/o pneumonia/mass Incentive spirometer, flutter valve, Mucinex Duonebs Rocephin, Zithromax for now --CT chest: 1. No evidence of pulmonary nodules, masses, or consolidative patches. 2. Left lower lobe thick atelectatic bands. 3. Multiple hepatic bi-lobar hypodense focal lesions. Need further contrast-enhanced CT scan of the abdomen and pelvis. -- Prednisone 40mg po daily, Nebs sputum culture ordered, Covid + flu + RSV test Continue ceftriaxone plus azithromycin #HTN Continue losartan. Monitor BMP #DM II A1c: 7.1 on 05/08/23 Not on medication A1c 6.8 DVT Prophylaxis Heparin SQ Admit med tele Full Code as per discussion with pt [facility] care Admission and Anticipated Discharge Date Admission Date: April 15, 2025 Subjective seen resting in bed, comfortable states he feels better overall no abdominal pain no problems with gore breathing is about the same as yesterday less cough no fever/chills Review of Systems Review of Systems: all noted and negative except for above Physical Exam Physical Exam: General- oriented x 3, not in distress, speaks in sentences with no effort or accessory muscle use Eyes- anicteric Neck- no JVD Lungs- clear breath sounds bilaterally, no rales/wheezes Heart- normal rate, regular rhythm; no murmurs Abdomen- normal bowel sounds, nondistended, soft, nontender Extremities- no pretibial edema, no calf tenderness Neuro- alert, oriented x 3; no gross focal neurologic deficits Skin- warm & dry Results & Data Results & Data Vital Signs (Past 12 Hours) Vital Signs Temp Pulse Pulse Resp BP Pulse Ox O2 Del Method 04/17/25 16:10 36.7 C 82 18 126/75 96 Room Air 04/17/25 15:18 94 H 04/17/25 13:13 85 18 92 Room Air 04/17/25 11:46 36.5 C 86 18 125/66 92 Room Air 04/17/25 11:00 88 04/17/25 11:00 Room Air 04/17/25 09:30 90 18 98 Room Air 04/17/25 07:57 36.8 C 83 18 130/67 93 Room Air FiO2 04/17/25 16:10 04/17/25 15:18 04/17/25 13:13 04/17/25 11:46 04/17/25 11:00 04/17/25 11:00 04/17/25 09:30 21 04/17/25 07:57 all noted and reviewed including below
[2025-04-17] MEDS: predniSONE 20 MG TAB PO STA (16:33)
--- NOTE | 2025-04-18 02:29 | Communication Note ---
Date of Service: April 18, 2025 Patient with recurrent NSVT episodes overnight. Patient asymptomatic. Electrolytes within normal limits Patient also found to be using home albuterol inhaler in addition to [id number] albuterol neb as per RN. EKG as per my interpretation rate 80, NSR, LAD, LAFB, LBBB, QTc 490 AP NSVT Prolonged QTc TTE Lopressor to suppress ectopy Xopenex in place of albuterol Patient instructed by RN to not to self-administer home albuterol inhaler inpatient. Doxycycline in place of azithromycin for possible CAP given prolonged QTc
[2025-04-18 02:50] LABS: Magnesium 2.2 mg/dl (1.7-2.4)
[2025-04-18] MEDS: METOPROLOL TARTRATE 1 MG/ML VIAL IV STA ×2 (04:42→08:22)
[2025-04-18] MEDS: METOPROLOL TARTRATE 25 MG TAB PO SCH (05:24)
[2025-04-18 06:17] LABS: Hematocrit (blood only) 32.9 % (42.0-52.0); Hemoglobin 11.0 g/dl (14.0-18.0); Immature Granulocytes # (auto) 0.08 K/uL (0.01-0.20); Immature Granulocytes % (auto) 0.9 %; Mean Corpuscular Hemoglobin 30.3 pg (25.0-34.0); Mean Corpuscular Volume 90.6 fL (80.0-100.0); Platelet Count 231 K/uL (130-400); RDW Standard Deviation 44.8 fL (36.4-46.3); Red Blood Count 3.63 M/uL (4.70-6.10); White Blood Count 8.77 K/ul (4.8-10.8)
[2025-04-18 06:36] LABS: Anion Gap 6.0 (3-11); Blood Urea Nitrogen 26.0 mg/dl (6-23); Calcium 8.7 mg/dl (8.6-10.3); Carbon Dioxide 27.0 mmol/L (21-32); Chloride 103.0 mmol/L (98-107); Creatinine Clr Calc Pharmacy 51.2 ml/min; Glucose 177.0 mg/dl (70-99(Fasting)); Magnesium 2.1 mg/dl (1.7-2.4); Potassium 4.3 mmol/L (3.5-5.1); Sodium 136.0 mmol/L (136-145)
[2025-04-18 06:51] LABS: Thyroid Stimulating Hormone 0.388 uIu/ml (0.300-4.500)
[2025-04-18] MEDS: IPRATROPIUM BROMIDE NEB SOLN 0.02% 0.5MG/2.5ML VIAL INH SCH (07:43)
[2025-04-18] MEDS: LEVALBUTEROL 1.25 MG/3 ML NEB NEB SCH (07:43)
--- NOTE | 2025-04-18 07:51 | Electrocardiogram Report ---
Test Reason : Blood Pressure : */* mmHG Vent. Rate : 95 BPM Atrial Rate : 95 BPM P-R Int : 192 ms QRS Dur : 108 ms QT Int : 380 ms P-R-T Axes : 69 77 262 degrees QTcB Int : 477 ms Sinus rhythm with Premature ventricular complexes or Fusion complexes Left bundle branch block Abnormal ECG When compared with ECG of 07-May-2023 16:09, Significant changes have occurred Confirmed by Margie Ramirez ([id number]) on 04/18/2025 7:50:56 AM Referred By: [facility] Confirmed By: Margie Ramirez
[2025-04-18] MEDS ORDERED: METOPROLOL TARTRATE 1 MG/ML VIAL IV PRN (08:32)
[2025-04-18] MEDS ORDERED: AMIODARONE IV BOLUS & DRIP IV STA (08:41)
[2025-04-18] MEDS ORDERED: 0.2 MICRON FILTER SET 1 EACH IV STA (08:41)
[2025-04-18] MEDS ORDERED: AMIODARONE / D5W 150 MG/100 ML BAG IV STA (08:41)
[2025-04-18] MEDS ORDERED: STAT IV Infusion **Titration per Protocol STA (08:41)
--- NOTE | 2025-04-18 08:46 | Hospitalist Progress Note ---
Date of Service April 18, 2025 Assessment & Plan (1) Urinary retention: (2) Abnormal computed tomography of abdomen and pelvis: Plan: per admitting service notes with addendum: #PROSTATE ENLARGEMENT SUSPECTED PROSTATE CANCER, POSSIBLE LIVER METS OBSTRUCTIVE UROPATHY, HYDRONEPHROSIS SECONDARY TO ABOVE Obstructive uropathy likely Patient is 84 year old male with PMH COPD presented to ER with c/o abdominal pain urinary retention x 3 days In ER Gore catheter placed and had 2L urine output. After catheter placed patient reports no further abdominal pain and much improvement of abdominal distention CT Abd/pelvis: Enlarged, irregularly shaped nodular prostate gland resulting in outlet obstruction of the urinary bladder with severe distention of the urinary bladder. There is an apparent infiltrative appearance of the prostatic tissues along the posterior wall of the urinary bladder. Prostatic malignancy could be present and recommend clinical correlation. Resultant bilateral mild hydroureteronephrosis secondary to the distention of the urinary bladder. Multiple ill-defined hypoattenuations of the liver are suspicious from metastases. Anorectal wall thickening may be due to proctitis, nonspecific Suspect underlying prostate malignancy with concern for metastasis as on imaging above Patient will require further imaging. Will hold on IV contrast currently with suspected LIDIA Continue Gore cath Obtain PSA labs Urology consult Oncology consult Concern for patient understanding of his health history and current diagnosis. He reports has a friend who is his emergency contact. Sasha Guillermo [phone]. 04/18 gore catheter: no issues crea back to normal PSA 8.2 Urologist consulted- Dr. Zavala: continue Gore, trial of voiding as outpatient, prostate +liver biopsy as outpatient, Tamsulosin + Finasteride monitor for hematuria # atrial fibrillation RVR - no previous history as per patient [facility] - likely secondary to using additional albuterol inhaler in addition to scheduled albuterol neb treatment - blood pressure stable, asymptomatic - Lopressor 5 mg IV given heart rate improved to 80s, remains in A-fib - echocardiogram ordered electrolytes okay albuterol discontinued for now - [id number] score is [address] head first prior to initiating anticoagulation to rule out brain mets in light of possible prostate cancer with liver mets metoprolol tartrate 12.5 mg twice daily ordered cardiology service consulted #Renal insufficiency Suspect LIDIA BUN: 45, Cr: 1.95. Unsure of recent baseline but Cr: 0.86 on 05/09/2023 Monitor renal functions, avoid nephrotoxic agents when possible -- crea back to baseline after Gore Cath placed #Hyponatremia Na: 126. Unsure of recent baseline. Na: 134 05/07/23 Serum osmolality, urine osmolality, urine sodium pending Suspect multifactorial Monitor -- resolved #COPD Possible COPD exacerbation Not hypoxic in ER Reports increased productive cough x couple weeks Obtain CT chest w/o contrast r/o pneumonia/mass Incentive spirometer, flutter valve, Mucinex Duonebs Rocephin, Zithromax for now --CT chest: 1. No evidence of pulmonary nodules, masses, or consolidative patches. 2. Left lower lobe thick atelectatic bands. 3. Multiple hepatic bi-lobar hypodense focal lesions. Need further contrast-enhanced CT scan of the abdomen and pelvis. -- Prednisone 40mg po daily, Nebs sputum culture ordered, Covid + flu + RSV test Continue ceftriaxone plus azithromycin 04/18 symptoms improving gradually, on room air Still has some wheezing bilaterally, continue prednisone 40 mg p.o. daily Hold albuterol nebs in light of A-fib RVR Start steroid nebs Continue ceftriaxone, azithromycin transitioned to doxycycline in light of A-fib RVR #HTN Continue losartan. Monitor BMP #DM II A1c: 7.1 on 05/08/23 Not on medication A1c 6.8 DVT Prophylaxis hold heparin subcu, will likely need heparin drip Admit med tele Full Code as per discussion with pt Follows with [place] [facility] for routine care Admission and Anticipated Discharge Date Admission Date: April 15, 2025 Subjective Events overnight noted noted to have NSVT, patient given Lopressor IV Patient admits to taking additional albuterol inhaler on top of his scheduled albuterol neb treatment This morning, notified by RN regarding Persistent NSVT on the monitor Twelve-lead EKG stat ordered, showing A-fib, heart rate 109 Blood pressure 125/76 Seen at the bedside, sitting up, not in distress, comfortable Confirms he has been taking additional albuterol inhaler last night at least 2-3 times in addition to his albuterol nebulization treatments Denies chest pain, shortness of breath, palpitations, dizziness States breathing is improving, still having some dry cough No other new symptom Review of Systems Review of Systems: all noted and negative except for above Physical Exam Physical Exam: General- oriented x 3, not in distress, speaks in sentences with no effort or accessory muscle use Eyes- anicteric Neck- no JVD Lungs- mild scattered expiratory wheezes bilaterally, no crackles Heart- mild tachycardia, irregularly irregular rhythm, no murmurs Abdomen- normal bowel sounds, nondistended, soft, nontender Extremities- no pretibial edema, no calf tenderness Neuro- alert, oriented x 3; no gross focal neurologic deficits Skin- warm & dry Results & Data Results & Data Vital Signs (Past 12 Hours) Vital Signs Temp Pulse Pulse Resp BP BP BP 04/18/25 08:25 118 H 125/86 04/18/25 07:43 128 H 24 04/18/25 07:36 78 04/18/25 07:14 36.5 C 91 H 19 155/97 H 04/18/25 04:58 79 148/80 H 04/18/25 04:42 88 142/80 H 04/18/25 04:41 88 18 142/80 H 04/18/25 04:26 36.7 C 100 H 19 122/86 04/17/25 21:58 36.7 C 91 H 18 137/70 04/17/25 21:42 89 Pulse Ox O2 Del Method FiO2 04/18/25 08:25 04/18/25 07:43 85 L Room Air 21 04/18/25 07:36 04/18/25 07:14 94 Room Air 04/18/25 04:58 04/18/25 04:42 04/18/25 04:41 96 Room Air 04/18/25 04:26 96 Room Air 04/17/25 21:58 95 Room Air 04/17/25 21:42 all noted and reviewed including below
[2025-04-18] MEDS: DOXYCYCLINE HYCLATE 100 MG CAP PO SCH (08:59)
[2025-04-18] MEDS: METOPROLOL TARTRATE 25 MG TAB PO ONE (09:07)
[2025-04-18] MEDS: AMIODARONE / D5W 150 MG/100 ML BAG IV STA (10:04)
[2025-04-18] MEDS ORDERED: Heparin IV Adult Wt-Based Low-Dose *NO* INITIAL Bolus Protocol IV STA (10:15)
[2025-04-18] MEDS: AMIODARONE / D5W 360 MG/200 ML BAG IV ONE (10:17)
[2025-04-18] MEDS: HEPARIN 25000 UNIT/500 ML D5W 25,000 UNITS/500 ML BAG IV SCH (10:42)
[2025-04-18] MEDS: Heparin IV Adult Wt-Based Low-Dose *NO* INITIAL Bolus Protocol IV STA (10:42)
--- NOTE | 2025-04-18 11:33 | CT Scan Report ---
CT head/brain wo con CLINICAL HISTORY: possible prostate CA, r/o brain lesions. TECHNIQUE: Multiple axial CT images of the head were obtained without contrast. A dose lowering tech nique was utilized adhering to the principles of ALARA. CT DOSE: 625.8 mGy.cm COMPARISON: 05/07/2023 FINDINGS: There is motion artifact. No intracranial hemorrhage seen. No mass effect, midline shift, o r hydrocephalus. There are stable mild chronic small vessel ischemic changes. No skull fracture seen. Visualized paranasal sinuses and mastoid air cells are clear. IMPRESSION: 1. No acute findings. 2. No gross evidence of metastatic disease seen to the brain. Noncontrast head CT is relatively insen sitive. If further evaluation is desired, either MRI with and without contrast or CT scan of the brai n with contrast would be suggested. ACT 112: Negative or not required by law. The above report was generated using voice recognition software. It may contain grammatical, syntax o r spelling errors. Electronically signed by: Tristin Whipple M.D. 04/18/2025 11:30 AM
--- NOTE | 2025-04-18 11:38 | Cardiology Consultation ---
Date of Consultation April 18, 2025 Assessment & Plan (1) Wide-complex tachycardia: Patient with baseline left bundle branch block, low normal LVEF as noted on nuclear stress test in 2022. Overnight, patient began to develop frequent brief albeit asymptomatic episodes of wide-complex tachycardia with regular RR interval in the range of 120-150 bpm. The longest episodes are 10 beats in duration. Differential diagnosis includes nonsustained ventricular tachycardia versus supraventricular tachycardia with aberrant conduction or atrial flutter with aberrant conduction. I am not convinced that his atrial fibrillation is the RR intervals appear regular. As noted, patient was taking albuterol both via nebulizer therapy and metered- dose inhaler. The metered-dose inhaler has been discontinued and the patient surrendered it. He has been transition to Xopenex. Continue the Toprol tartrate 12.5 mg twice daily. Patient transferred to the PCU and amiodarone infusion initiated. CT of the brain reveals no evidence of metastatic disease, given his underlying presentation, I think that most prudent to hold off of anticoagulation at this time in order to avoid bleeding complication from his system or other. Oncology and urology input noted and appreciated with tentative plans for outpatient prostate biopsy, and hepatic biopsy at some point due to concerns that the patient may have two separate malignancies. I spent a total of 60 minutes on the date of service in preparation, delivery, and documentation of the care provided to this patient, excluding any time spent in the performance of separately billed services. Sridhar Desai DO History of Present Illness Attending Physician: Juan Negro MD History of Present Illness Feliberto Day is an 84 year old male seen in cardiology consultation per the request of Dr Negro for the evaluation of episodes of wide complex tachycardia. Patient initially presented on 04/15/2025 with concerns of urinary retention and abdominal bloating. CT of the abdomen and pelvis performed 04/15/2025 revealed an enlarged prostate gland with infiltration of the prostatic tissue along the posterior wall of the urinary bladder concerning for prostate malignancy with resultant urinary outflow tract obstruction and there had been findings of mild hydroureteronephrosis. There were multiple ill-defined hypoattenuation's of the liver suspicious for metastatic disease as well. He has been seen by urology and a Denny catheter has since been placed which he has tolerated well. Yesterday, telemetry had revealed occasional PVCs including ventricular couplets. After midnight, patient noted to have frequent brief episodes of wide-complex tachycardia in the setting of baseline left bundle branch block. Per my review of telemetry, the episodes are anywhere from 3-10 beats in duration with a rate ranging from 120-150 bpm. Patient initially treated with a dose of IV metoprolol last evening and metoprolol tartrate 2.5 mg twice daily subsequently started by the platform software engineer. Per my conversation with the patient's nurse, in addition to the Xopenex nebulizer treatments that he has been receiving, he was also taking his home albuterol inhaler. He has since relinquished the home inhaler. The patient denies any subjective symptoms. The patient does not follow with our cardiology practice as an outpatient. He states that he had seen in the cardiology clinic with the [facility] in [place] approximately 2 years ago when he was being assessed for Lyme disease. Nuclear stress test performed at this institution in August, revealed a small fixed apical septal perfusion defect consistent with underlying left bundle branch block without ischemia. LVEF 48% by that technique at that time. Allergies Allergy/AdvReac Type Severity Reaction Status Date / Time pollen extracts Allergy Intermediate SNEEZING, Verified 04/15/25 18:46 CONGESTION Home Medications Medication Instructions Recorded Confirmed Type Chelated Multivitamin Wo/Iron 1 tab PO DAILY 04/15/25 04/15/25 History Gymnema Abel 1 tab PO DAILY 04/15/25 04/15/25 History Kefir 1 dose PO DAILY 04/15/25 04/15/25 History [id number] Cysteine Tablet 1 tab PO DAILY 04/15/25 04/15/25 History albuterol sulfate 90 mcg/actuation 2 puff inhalation Q4H PRN 04/15/25 04/15/25 History aerosol inhaler Shortness Of Breath alpha lipoic acid 300 mg capsule 300 mg PO DIRECTED PRN 04/15/25 04/15/25 History NEEDED PER [facility] berberine chloride 500 mg-seaweed 1 cap PO DAILY 04/15/25 04/15/25 History 250 mg-chromium gly 7.5 mcg capsule bilberry 100 mg capsule 100 mg PO DAILY 04/15/25 04/15/25 History cholecalciferol (vitamin D3) 25 25 mcg PO DAILY 04/15/25 04/15/25 History mcg (1,000 unit) capsule (Vitamin D3) coenzyme Q10 100 mg capsule 100 mg PO BID 04/15/25 04/15/25 History (CoQ-10) cyanocobalamin (vitamin B-12) 500 500 mcg PO DAILY 04/15/25 04/15/25 History mcg tablet (Vitamin B-12) flaxseed 1 ea PO DAILY 04/15/25 04/15/25 History hawthorn 500 mg capsule (hawthorn 500 mg PO DAILY 04/15/25 04/15/25 History cochran) losartan 25 mg tablet 12.5 mg PO DAILY 04/15/25 04/15/25 History magnesium oxide 250 mg PO DAILY 04/15/25 04/15/25 History multivitamin with minerals 1 tab PO DAILY 04/15/25 04/15/25 History omega-3 fatty acids 1,000 mg 1,000 mg PO BID 04/15/25 04/15/25 History capsule tamsulosin 0.4 mg capsule (Flomax) 0.4 mg PO DAILY 04/15/25 04/15/25 History tiotropium 2.5 mcg-olodaterol 2.5 2 puff inhalation DAILY 04/15/25 04/15/25 History mcg/actuation mist for inhalation turmeric 400 mg capsule 400 mg PO DAILY 04/15/25 04/15/25 History Patient History Medical History COPD (chronic obstructive pulmonary disease) Cranial nerve III palsy, partial, right Surgical History History of hernia repair Social History Smoking Status: Former smoker Tobacco Type: Cigarettes Age Quit Using Tobacco: 70; Hx Alcohol Use: No Hx Substance Use: No Preferred Language: Mohawk Communication Ability: Effective Siding Mechanic Required: No Beliefs That Will Affect Care: None Current Living Situation: Alone Feels Safe at Home: Yes Assistive Devices: Cane Review of Systems Review of Systems: All systems reviewed & are unremarkable except as noted in HPI & below Physical Exam Physical Exam: General: no acute distress and stated age Eyes: conjunctiva are pink and non-injected, sclera clear Neck: normal jugular venous pulse, no hepatojugular reflux Chest: normal shape and normal respiratory effort Lungs: clear to auscultation and percussion Cardiac Exam: - regular heart sounds, no murmurs, rubs, or gallops, no jugular venous distention Abdomen: abdomen soft, non-tender, no abnormal masses and no hepatosplenomegaly Extremities: no edema and no cyanosis Neuro:awake, conversant, follows commands, no focal motor deficits Psych: appropriate affect and insight. : Denny catheter in place draining clear yellow urine Results & Data Vital Signs (Past 12 Hours) Vital Signs Temp Pulse Pulse Resp BP BP BP 04/18/25 11:17 36.6 C 81 18 125/66 04/18/25 09:55 04/18/25 09:04 36.4 C L 80 22 135/75 04/18/25 09:03 80 135/75 04/18/25 08:55 04/18/25 08:25 118 H 125/86 04/18/25 07:43 128 H 24 04/18/25 07:36 78 04/18/25 07:14 36.5 C 91 H 19 155/97 H 04/18/25 04:58 79 148/80 H 04/18/25 04:42 88 142/80 H 04/18/25 04:41 88 18 142/80 H 04/18/25 04:26 36.7 C 100 H 19 122/86 Pulse Ox O2 Del Method FiO2 04/18/25 11:17 96 Room Air 04/18/25 09:55 Room Air 04/18/25 09:04 96 Room Air 04/18/25 09:03 04/18/25 08:55 Room Air 04/18/25 08:25 04/18/25 07:43 85 L Room Air 21 04/18/25 07:36 04/18/25 07:14 94 Room Air 04/18/25 04:58 04/18/25 04:42 04/18/25 04:41 96 Room Air 04/18/25 04:26 96 Room Air Laboratory Results CBC 04/18/25 Range/Units 06:03 WBC 8.77 (4.8-10.8) K/ul RBC 3.63 L (4.70-6.10) M/uL Hgb 11.0 L (14.0-18.0) g/dl Hct 32.9 L (42.0-52.0) % Plt Count 231 (130-400) K/uL Neut # (Auto) 7.68 H (1.40-6.50) K/uL Lymph # (Auto) 0.66 L (1.20-3.40) K/uL [place] # (Auto) 0.34 (0.11-0.59) K/uL Eos # (Auto) 0.00 (0.00-0.50) K/uL Baso # (Auto) 0.01 (0.00-0.20) K/uL Comprehensive Metabolic Panel 04/18/25 Range/Units 06:03 Sodium 136 (136-145) mmol/L Potassium 4.3 (3.5-5.1) mmol/L Chloride 103 (98-107) mmol/L Carbon Dioxide 27 (21-32) mmol/L BUN 26 H (6-23) mg/dl Creatinine 1.10 (0.6-1.4) mg/dl Glucose 177 H (70-99(Fasting)) mg/dl Calcium 8.7 (8.6-10.3) mg/dl Intake and Output 04/17/25 04/18/25 04/18/25 22:59 06:59 14:59 Intake Total 1460 / 1715 255 / 1715 Output Total 1149 Balance 310 / -285 -595 / -285 Intake: IV 50 / 305 255 / 305 Azithromycin 500 mg In 255 ml @ 255 / 255 127.5 mls/hr IV Q24H SONIA Rx#: [id number] cefTRIAXone SODIUM 2,000 mg In 50 / 50 50 ml @ 100 mls/hr IV Q24H SONIA Rx#:[id number] Oral 1410 / 1410 Output: Urine Amount (Catheter) 1149 Denny/Indwelling 1149 Other: Weight 82.1 kg Weight Measurement Method Built in [facility] Diagnostic Findings Summary of transthoracic echocardiogram performed today 04/18/2025: There is mild concentric left ventricular hypertrophy. Left ventricular systolic function is normal. The qualitative left ventricular ejection fraction= 55%. No regional wall motion abnormalities noted. The right ventricle is normal in size and function. Aortic valve sclerosis mild, without significant aortic valvular stenosis. There is moderate mitral annular calcification. There is mild mitral regurgitation. The left ventricular diastolic function is abnormal suggestive of elevated left-sided filling pressure. EKG performed today 04/18/2025 at 8:16 AM revealed episode of wide-complex tachycardia with conversion to sinus rhythm with left bundle branch block. PG Care Time/CCT Total # of Minutes Spent Total Time Spent with Patient: Total time spent is greater than 50% in coordination of care (as documented) at patient's floor/unit and/or counseling patient: Coding Level of Care Code 13467 IN/OBS CONSULT LVL 4,60M Diagnoses Wide-complex tachycardia R00.0
--- NOTE | 2025-04-18 12:09 | Electrocardiogram Report ---
Test Reason : Blood Pressure : */* mmHG Vent. Rate : 78 BPM Atrial Rate : 78 BPM P-R Int : 202 ms QRS Dur : 128 ms QT Int : 430 ms P-R-T Axes : 73 -22 114 degrees QTcB Int : 490 ms Normal sinus rhythm with sinus arrhythmia Left bundle branch block Abnormal ECG When compared with ECG of 16-Apr-2025 20:37, (unconfirmed) No significant change was found Confirmed by Gary Odell ([id number]) on 04/18/2025 12:09:00 PM Referred By: [facility] Confirmed By: Gary Odell
--- NOTE | 2025-04-18 12:15 | Electrocardiogram Report ---
Test Reason : Blood Pressure : */* mmHG Vent. Rate : 109 BPM Atrial Rate : * BPM P-R Int : * ms QRS Dur : 116 ms QT Int : 350 ms P-R-T Axes : * 73 255 degrees QTcB Int : 471 ms Normal sinus rhythm Premature atrial complexes Frequent and consecutive Premature ventricular complexes Non-specific intra-ventricular conduction delay Abnormal ECG When compared with ECG of 18-Apr-2025 04:28, (unconfirmed) No significant change Confirmed by Gary Odell ([id number]) on 04/18/2025 12:15:06 PM Referred By: [facility] Confirmed By: Gary Odell
[2025-04-18 16:22] LABS: ANTI-Xa, UFH(UnfractionatedHep 0.21 IU/ml (0.3-0.7)
--- NOTE | 2025-04-18 19:03 | Communication Note ---
Date of Service: April 18, 2025 Patient reassessed. Rhythm improved. The frequent runs of wide-complex tachycardia have resolved. Occasional PVCs noted but less frequent. Amiodarone held due to transient bradycardia. Question if rhythm was in fact due to having taken albuterol nebulizer and albuterol inhaler at the same time. Discontinue amiodarone for now. I think it was worth the patient has repeat runs of wide-complex tachycardia would be reasonable to reinitiate this at a dose of 0.5 mg/min, no loading bolus. Transition to metoprolol succinate 12.5 mg twice daily With caution given chronic left bundle branch block. Patient's [id number] at the bedside. Patient is eager for discharge. Counseled him that he will need to follow-up with urology for prostate biopsy, as well as for arrangements that are to be made with regards to hepatic biopsy. Sridhar Desai, DO
[2025-04-18] MEDS: AMIODARONE / D5W 360 MG/200 ML BAG IV SCH (19:19)
[2025-04-18] MEDS: METOPROLOL SUCC 25MG EXT REL TAB PO SCH (20:50)
[2025-04-18] MEDS ORDERED: METOPROLOL TARTRATE 25 MG TAB PO SCH (21:00)
[2025-04-18 22:57] VITALS: RESP 18
[2025-04-18] MEDS: IPRATROPIUM BROMIDE NEB SOLN 0.02% 0.5MG/2.5ML VIAL INH STA (23:15)
[2025-04-18] MEDS: LEVALBUTEROL 1.25 MG/3 ML NEB NEB STA (23:18)
[2025-04-18 23:34] LABS: ANTI-Xa, UFH(UnfractionatedHep 0.28 IU/ml (0.3-0.7)
--- NOTE | 2025-04-19 01:27 | XRay Report ---
EXAM: XR chest 1V portable CLINICAL HISTORY: wheeze TECHNIQUE: Radiograph of chest was acquired. COMPARISON: none FINDINGS: Prominent peripheral bronchovascular markings in bilateral lung francisco are likely of congestive etiology, clinical correlation is recommended. Rest of the lungs are clear and well-expanded with no pulmonary infiltrate or pleural effusion. The cardiomediastinal silhouette is within normal limits. No acute osseous abnormality. IMPRESSION: Prominent peripheral bronchovascular markings in bilateral lung francisco are likely of congestive etiology, clinical correlation is recommended. Electronically signed by Manfred Campo 04-19-2025 01:26 AM
[2025-04-19 07:27] LABS: Hematocrit (blood only) 36.3 % (42.0-52.0); Hemoglobin 11.6 g/dl (14.0-18.0); Immature Granulocytes # (auto) 0.13 K/uL (0.01-0.20); Immature Granulocytes % (auto) 1.7 %; Mean Corpuscular Hemoglobin 29.7 pg (25.0-34.0); Mean Corpuscular Volume 93.1 fL (80.0-100.0); Platelet Count 262 K/uL (130-400); RDW Standard Deviation 46.3 fL (36.4-46.3); Red Blood Count 3.90 M/uL (4.70-6.10); White Blood Count 7.50 K/ul (4.8-10.8)
[2025-04-19 07:40] VITALS: TEMP 98.1; O2SAT 93
[2025-04-19 07:49] LABS: Alanine Aminotransferase 52.0 U/L (7-52); Albumin Globulin Ratio 1.2 (0.9-2); Alkaline Phosphatase 113.0 U/L (34-104); Anion Gap 6.0 (3-11); Bilirubin,Total 0.5 mg/dl (0.2-1.0); Blood Urea Nitrogen 21.0 mg/dl (6-23); Calcium 8.9 mg/dl (8.6-10.3); Carbon Dioxide 28.0 mmol/L (21-32); Chloride 105.0 mmol/L (98-107); Creatinine Clr Calc Pharmacy 52.7 ml/min; Globulin 2.9 gm/dl (2.5-4.0); Glucose 116.0 mg/dl (70-99(Fasting)); Magnesium 2.0 mg/dl (1.7-2.4); Potassium 4.2 mmol/L (3.5-5.1); Sodium 139.0 mmol/L (136-145); Total Protein 6.4 gm/dl (6.0-8.3)
[2025-04-19 08:02] LABS: ANTI-Xa, UFH(UnfractionatedHep 0.30 IU/ml (0.3-0.7)
--- NOTE | 2025-04-19 11:27 | Discharge Summary ---
Discharge Summary Date of Service April 19, 2025 Principal Dx & Hospital Course #1 = Principal Diagnosis (1) Urinary retention: (2) Abnormal computed tomography of abdomen and pelvis: Mr. Day is an 84 year old male with PMH COPD presented to ER with c/o abdominal pain urinary retention x 3 days. In ER Gore catheter placed and had 2L urine output. After catheter placed patient reports no further abdominal pain and much improvement of abdominal distention. He underwent CT ABP and it revealed "enlarged, irregularly shaped nodular prostate gland resulting in outlet obstruction of the urinary bladder with severe distention of the urinary bladder...prostatic malignancy could be present and recommend clinical correlation. Resultant bilateral mild hydroureteronephrosis secondary to the distention of the urinary bladder. Multiple ill-defined hypoattenuations of the liver are suspicious from metastases. Anorectal wall thickening may be due to proctitis, nonspecific"' Urology and Onc evaluated the patient. Ultimately, plan to maintain gore ca therter and follow up for outpatient biopsy of liver and prostate as there is concern for possibly two different malignant processes. COurse complicated by a wide complex tachycardia, potentially thought to be NSVT v SVT with aberrant conduction or a flutter with aberrancy. Albuterol was discontinued. Patient started on amiodarone briefly then transitioned to metoprolol bid. Systemic anticoagulation held at this time. On day of discharge, patient states he is doing well and has no other complaints. Verbalizes understanding of his new medication changes and his needed follow up. #Generalized weakness refused pt/ot refused discussion of rehab Recommended walker #Prostate enlargement #Obstructive uropathy #suspicion for prostatic malignancy Suspect underlying prostate malignancy with concern for metastasis as on imaging above Continue Gore cath PSA elevated Urology consult: prostate biopsy as outpatient Oncology consult: plan to follow per biopsy results finasteride and tamsulosin #Wide complex tachycardia, SVT with aberrancy v a flutter with aberrancy - likely secondary to using additional albuterol inhaler in addition to scheduled albuterol neb treatment Cardiology consulted: not convinced this is A fib. Hold on AC at this time given risk of bleeding from system continue metoprolol tartrate 12.5 mg twice daily Cardiology follow up #Renal insufficiency resolved ( like underlying CKD II-III) Suspect LIDIA BUN: 45, Cr: 1.95. Unsure of recent baseline but Cr: 0.86 on 05/09/2023 1.07 upon discharge #Hyponatremia resolved Na: 126. Unsure of recent baseline. Na: 134 05/07/23 Serum osmolality, urine osmolality, urine sodium pending Suspect multifactorial Monitor -- resolved #COPD Possible COPD exacerbation Not hypoxic in ER Reports increased productive cough x couple weeks Obtain CT chest w/o contrast r/o pneumonia/mass Incentive spirometer, flutter valve, Mucinex Duonebs Rocephin, Zithromax for now --CT chest: 1. No evidence of pulmonary nodules, masses, or consolidative patches. 2. Left lower lobe thick atelectatic bands. 3. Multiple hepatic bi-lobar hypodense focal lesions. Need further contrast-enhanced CT scan of the abdomen and pelvis. -- Prednisone 40mg po daily, Nebs sputum culture ordered, Covid + flu + RSV test continue shourt doxy course completed predniosone #HTN Continue losartan. Monitor BMP #DM II A1c: 7.1 on 05/08/23 Not on medication A1c 6.8 Notes For Next Care Provider -Urology follow up -Oncology follow up -Cardiology follow up -Liver and Prostate biopsy Recommended Medication Changes From Visit Start metoprolol tartrate 12.5 bid start finasteride 5mg daily continue short course of doxycycline Admission HPI Per Admitting Provider Patient is 84 year old male with PMH COPD presented to ER with c/o abdominal pain x 3 days. Patient states baseline urination is urinary frequency but voiding small amounts. Past 3 days has been unable to void fully and reports "dribbling" urine. He states past 3 days with lower abdominal pain and has noted increased abdominal girth. He also reports constipation for past 3 days. He reports past couple of weeks with increased cough and sputum production and r eports was seen at [place] clinic and started albuterol inhaler. He states he continues with cough but feels like is wheezing less with using the albuterol four times a day. Denies hemoptysis. He reports chronic SOB with exertion and feels this is baseline. States 5 pound weight loss over past 3 months. Denies fever/chills, diaphoresis, N/V/D, SALAZAR, dizziness, syncope, vision changes, neck pain, CP, palpitations, hemoptysis, sore throat, otalgia, rhinorrhea, paresthesias, extremity weakness, extremity edema, rashes, hematuria, dysuria, melena, hematochezia, night sweats. Admission Exam Per Admitting Provider General: no distress, obese elderly male Head: normocephalic, atraumatic Eyes: PERRL, EOM's intact, conjunctiva non-injected, anicteric ENT: normal inspection external ears, nose, mucous membranes moist Neck: supple, trachea midline, non-tender Lungs: no respiratory distress, +rhonchi that clears after coughing, no wheezing, rales noted CV: RRR, no murmur, no pretibial edema Abd: normal BS, soft, non-tender to palpation at this time with Gore catheter in place Ext: no cyanosis, no calf tenderness Neuro: A&O x 3, no focal deficits noted, normal affect Skin: warm, dry Discharge Exam Constitutional WD/WN, vitals as above Respiratory normal respiratory effort, lungs clear to auscultation Cardiovascular RRR, no murmur, no edema Gastrointestinal (Abdomen) normal bowel sounds, soft, nontender, no hepatosplenomegaly Updated Medication List Medication Instructions Recorded Confirmed Type Chelated Multivitamin Wo/Iron 1 tab PO DAILY 04/15/25 04/15/25 History Gymnema Abel 1 tab PO DAILY 04/15/25 04/15/25 History Kefir 1 dose PO DAILY 04/15/25 04/15/25 History Rub-Q-Dnbfpn Cysteine Tablet 1 tab PO DAILY 04/15/25 04/15/25 History albuterol sulfate 90 mcg/actuation 2 puff inhalation Q4H PRN 04/15/25 04/15/25 History aerosol inhaler Shortness Of Breath alpha lipoic acid 300 mg capsule 300 mg PO DIRECTED PRN 04/15/25 04/15/25 History NEEDED PER [facility] berberine chloride 500 mg-seaweed 1 cap PO DAILY 04/15/25 04/15/25 History 250 mg-chromium gly 7.5 mcg capsule bilberry 100 mg capsule 100 mg PO DAILY 04/15/25 04/15/25 History cholecalciferol (vitamin D3) 25 25 mcg PO DAILY 04/15/25 04/15/25 History mcg (1,000 unit) capsule (Vitamin D3) coenzyme Q10 100 mg capsule 100 mg PO BID 04/15/25 04/15/25 History (CoQ-10) cyanocobalamin (vitamin B-12) 500 500 mcg PO DAILY 04/15/25 04/15/25 History mcg tablet (Vitamin B-12) flaxseed 1 ea PO DAILY 04/15/25 04/15/25 History hawthorn 500 mg capsule (hawthorn 500 mg PO DAILY 04/15/25 04/15/25 History cochran) losartan 25 mg tablet 12.5 mg PO DAILY 04/15/25 04/15/25 History magnesium oxide 250 mg PO DAILY 04/15/25 04/15/25 History multivitamin with minerals 1 tab PO DAILY 04/15/25 04/15/25 History omega-3 fatty acids 1,000 mg 1,000 mg PO BID 04/15/25 04/15/25 History capsule tamsulosin 0.4 mg capsule (Flomax) 0.4 mg PO DAILY 04/15/25 04/15/25 History tiotropium 2.5 mcg-olodaterol 2.5 2 puff inhalation DAILY 04/15/25 04/15/25 History mcg/actuation mist for inhalation turmeric 400 mg capsule 400 mg PO DAILY 04/15/25 04/15/25 History docusate sodium 100 mg capsule 100 mg PO BID 30 days #60 caps 04/19/25 Rx doxycycline hyclate 100 mg capsule 100 mg PO BID 5 days #10 caps 04/19/25 Rx finasteride 5 mg tablet 5 mg PO QAM 30 days #30 tabs 04/19/25 Rx metoprolol succinate 25 mg 12.5 mg (1/2 x 25 mg) PO BID 30 04/19/25 Rx tablet,extended release 24 hr days #30 tabs Hospital Stay Data Consultations 04/15/25 18:20 ED Decision to Admit Stat 04/15/25 21:16 Consult Oncology Routine Consult Urology Routine 04/18/25 08:20 Consult Cardiology Routine Diagnostic Imagining Performed 04/15/25 17:01 CT abd pelvis wo con Stat 04/15/25 19:01 CT chest diagnostic wo con Urgent 04/18/25 08:35 CT head/brain wo con Stat Pending Results Patient Have Any Pending Studies at Discharge: No Discharge Instructions Given to Patient (Per Discharging Provider) You came in for urinary retention. A gore was placed. You were seen by Urology and Oncology as it is suspected you may have prostate cancer. This will require a biopsy. You will also be set up to obtain a liver biopsy as well. You were noted to have an irregular and fast rhythm called wide-complex tachycardia. You were started on a medicine called Metoprolol tartrate 12.5mg two times daily. Your next dose is tonight. You will keep your gore catheter until you see the urologist. You will also start finasteride 5mg to help relax your urethra to help you urinate. Your next dose is tomorrow morning. You will continue a short course of doxycycline 100mg two times a day until all tablets are done, your next dose is tonight Total Time Total Time Spent Total Time Spent (In Minutes): 45
[2025-04-19 13:02] VITALS: BP 135/75; PULSE 90
--- NOTE | 2025-04-19 16:04 | Electrocardiogram Report ---
Test Reason : Blood Pressure : */* mmHG Vent. Rate : 120 BPM Atrial Rate : 138 BPM P-R Int : 156 ms QRS Dur : 118 ms QT Int : 354 ms P-R-T Axes : 15 78 261 degrees QTcB Int : 500 ms Poor data quality, interpretation may be adversely affected Sinus tachycardia with frequent , and consecutive Premature ventricular complexes Possible Left atrial enlargement Non-specific intra-ventricular conduction delay Abnormal ECG When compared with ECG of 18-Apr-2025 02:40, Premature ventricular complexes are now Present Sinus rhythm is now with junctional escape complexes Vent. rate has increased by 42 bpm Non-specific intra-ventricular conduction delay has replaced Left bundle branch block Confirmed by Gary Odell ([id number]) on 04/19/2025 4:04:10 PM Referred By: [facility] Confirmed By: Gary Odell
== END 2025-04-19 13:02 | disposition home or self-care (01) | DRG 723 ==
LOC: ED 15:44 → SUATTDRO 19:09 → EDINP 19:09 → 2N 21:17 → 2S 04-18 08:48

== ENCOUNTER 2025-08-23 13:42 | Inpatient (IN) ==
--- NOTE | 2025-08-23 13:52 | Emergency Department Note ---
Impression & Plan Acute renal failure, Prostate cancer, Urinary retention, Obstructed, uropathy, Indwelling Denny catheter present, Complicated urinary tract infection ED Provider Note NAME: ENA KANG AGE: 84 SEX: M : 1940 ARRIVES VIA: Ambulance INFORMANT: Patient, ED PROVIDER(S): Chente Martin MD CHIEF COMPLAINT: Patient referral, tachycardia MEDICAL DECISION MAKING: Patient presents with the above. Patient did have his catheter exchanged with good about 1200 of urine. IV was established and blood work was obtained along with blood and urine cultures the patient did receive empiric IV cefepime. Patient's blood work shows a white count of 11.12. Platelet count of 217. Kidney function with acute renal failure with a creatinine of 4.8. Initial lactate of 2.9. Urinalysis that showed concern for infection. Patient had been covered with IV cefepime. Patient was feeling improved. Given patient's obstructive uropathy I did message with Roxana Amaro to make them aware the patient subsequently admitted to medicine service Discussion w/ other healthcare providers: ORION Canales and Dr. Sanchez urology service Dr. Palomo inpatient medicine service Prior /Outside records reviewed: None Differential diagnosis: [Infection, dehydration, metabolic abnormality, hypo/hyperglycemia, electrolyte imbalance, anemia, UTI, pneumonia, thyroid dysfunction among others were considered. Diagnostics, as interpreted by me: ECG: Sinus tachycardia, prolonged KS, rate of 105 wide QRS left lower branch block pattern, T wave inversions in the high lateral leads. No obvious STEMI based on Sgarbossa criteria. Cardiac monitoring: An order was placed for continuous cardiac monitoring. The monitor shows a rate of 102 with tachycardic rate rhythm. Patient was placed on pulse oximetry Medical decision rules: None Imaging studies: I informally interpreted the patient's chest x-ray does not show evidence of obvious pneumonia with formal report to follow. HPI: Patient presents as referral due to concern for tachycardia and concerns about urine output. Patient reported his had some overflow incontinence even with his catheter in place. Patient was seen in clinic today and was referred here. Patient denies any chest pains. Patient has noticed decrease in urine output. Denies any chills. Does admit to not eating or drinking as much. No reported vomiting or diarrhea. PAST MEDICAL HISTORY: See Below PAST SURGICAL HISTORY: See Below SOCIAL HISTORY: See Below HOME MEDICATIONS: See Below ALLERGIES: See Below VITALS: See Below PHYSICAL EXAMINATION: GENERAL: NAD, non-toxic. EYE EXAM: Normal conjunctiva. PERRL, no anisocoria and EOM's grossly intact w/o pain. OROPHARYNX: Dry mucous membranes, edentulous NECK: Trachea midline, no stridor. Supple, no nuchal rigidity, no adenopathy, non-tender. No signs of meningismus. FROM of the neck with good chin to chest and neck extension. LUNGS: Clear to auscultation. Normal chest wall mechanics. HEART: N tachycardic SR, no MRG. ABDOMEN: Abdomen soft, non-tender, no masses, no rebound or guarding. BACK: No CVA TTP. SKIN: No rashes and no bruising. UPPER EXTREMITIES: Upper extremities are grossly normal. LOWER EXTREMITIES: Grossly normal, no edema. NEURO EXAM: Awake and alert, follows commands, no obvious facial asymmetry, normal speech, moves all 4 extremities. Past Med/Surg History Problem List (Updated 08/27/25 @ 13:19 by Chente Martin MD) Complicated urinary tract infection (Acute) Indwelling Denny catheter present (Acute) Obstructed, uropathy (Acute) Acute renal failure (Acute) Gram-negative bacteremia Cough UTI (urinary tract infection) Dyspnea Wide-complex tachycardia Prostate cancer (Acute) Acute hyponatremia (Acute) LIDIA (acute kidney injury) (Acute) Bladder outlet obstruction (Acute) Abnormal computed tomography of abdomen and pelvis Urinary retention (Acute) Dysconjugate gaze (Acute) Lyme disease (Acute) Eye problems Medical History Liver lesion Hematuria Elevated PSA COPD (chronic obstructive pulmonary disease) Cranial nerve III palsy, partial, right Surgical History History of hernia repair Social History Smoking Status: Never smoker Tobacco Type: Cigarettes Age Quit Using Tobacco: 70; Second Hand Exposure: No; Do You Dip or Chew Tobacco: No; Hx Alcohol Use: No Hx Substance Use: No Preferred Language: Romanian Communication Ability: Effective Director Business Development Required: No Beliefs That Will Affect Care: None Current Living Situation: Alone Feels Safe at Home: Yes Assistive Devices: Cane, Walker and Other Allergies Allergies Allergy/AdvReac Type Severity Reaction Status Date / Time pollen extracts Allergy Intermediate SNEEZING, Verified 08/23/25 16:53 CONGESTION Home Meds Home Medications Medication Instructions Recorded Confirmed Kefir 1 dose PO DAILY 04/15/25 08/23/25 Vgm-B-Fpyrse Cysteine Tablet 1 tab PO DAILY 04/15/25 08/23/25 alpha lipoic acid 300 mg capsule 300 mg PO DIRECTED PRN 04/15/25 08/23/25 NEEDED PER [facility] berberine chloride 500 mg-seaweed 1 cap PO DAILY 04/15/25 08/23/25 250 mg-chromium gly 7.5 mcg capsule bilberry 100 mg capsule 100 mg PO DAILY 04/15/25 08/23/25 cyanocobalamin (vitamin B-12) 500 500 mcg PO DAILY 04/15/25 08/23/25 mcg tablet (Vitamin B-12) flaxseed 1 ea PO DAILY 04/15/25 08/23/25 multivitamin with minerals 1 tab PO DAILY 04/15/25 08/23/25 turmeric 400 mg capsule 400 mg PO DAILY 04/15/25 08/23/25 albuterol sulfate 90 mcg/actuation 2 puff inhalation Q6 PRN 08/23/25 08/23/25 aerosol inhaler brochospasm coenzyme Q10 100 mg capsule 100 mg PO BID 08/23/25 08/23/25 magnesium oxide 250 mg PO HS 08/23/25 08/23/25 magnesium oxide 400 mg PO QAM 08/23/25 08/23/25 omega-3s 720 mg-dha 300 mg-epa 360 1 cap PO DAILY 08/23/25 08/23/25 mg-fish oil 1,200 mg capsule tiotropium 2.5 mcg-olodaterol 2.5 1 puff inhalation DAILY 08/23/25 08/23/25 mcg/actuation mist for inhalation (Stiolto Respimat) Previous Rx's Medication Instructions Recorded levofloxacin 750 mg tablet 750 mg PO Q48H #2 tabs 08/27/25 Results & Data (ED) Home Medications Current Medication List: was personally reviewed by me Laboratory Data Attestation: I reviewed the patient's lab results. 08/26/25 06:16 08/27/25 06:37 Lab Results 08/23/25 08/23/25 08/23/25 Range/Units 14:05 14:29 16:01 WBC 11.58 H (4.8-10.8) K/ul RBC 4.01 L (4.70-6.10) M/uL Hgb 12.2 L (14.0-18.0) g/dL Hct 35.4 L (42.0-52.0) % MCV 88.3 (80.0-100.0) fL MCH 30.4 (25.0-34.0) pg MCHC 34.5 (32.0-36.0) g/dL RDW Std Deviation 49.4 H (36.4-46.3) fL RDW Coeff of [place] 15.2 H (11.5-14.5) % Plt Count 217 (130-400) K/uL MPV 10.3 (9.4-12.4) fL Immature Gran % (Auto) 0.6 % Neut % (Auto) 90.4 % Lymph % (Auto) 2.7 % [place] % (Auto) 6.0 % Eos % (Auto) 0.0 % Baso % (Auto) 0.3 % Neut # (Auto) 10.47 H (1.40-6.50) K/uL Lymph # (Auto) 0.31 L (1.20-3.40) K/uL [place] # (Auto) 0.70 H (0.11-0.59) K/uL Eos # (Auto) 0.00 (0.00-0.50) K/uL Baso # (Auto) 0.03 (0.00-0.20) K/uL Immature Gran # (Auto) 0.07 (0.01-0.20) K/uL Toxic Granulation 1+ Dohle Bodies 2+ Polychromasia 1+ Echinocytes 1+ Acanthocytes (Spur) 2+ Sodium 133 L (136-145) mmol/L Potassium 5.3 H (3.5-5.1) mmol/L Chloride 98 (98-107) mmol/L Carbon Dioxide 21 (21-32) mmol/L Anion Gap 14 H (3-11) BUN 111 H (6-23) mg/dl Creatinine 4.80 H* (0.6-1.4) mg/dl Est Cr Clr Drug Dosing 10.9 ml/min eGFR 11.37 BUN/Creatinine Ratio 23.1 H (10-20) Glucose 199 H (70-99(Fasting)) mg/dl Lactate 2.9 H* 1.8 (0.4-2.0) mmol/L Calcium 10.0 (8.6-10.3) mg/dl Magnesium 2.7 H (1.7-2.4) mg/dl Total Bilirubin 0.8 (0.2-1.0) mg/dl Direct Bilirubin 0.3 H (0-0.2) mg/dl AST 43 H (13-39) U/L ALT 45 (7-52) U/L Alkaline Phosphatase 97 (34-104) U/L Troponin I High Sens 81.0 H* 72.3 H* (0-20) pg/ml Total Protein 7.9 (6.0-8.3) gm/dl Albumin 3.9 (3.4-5.0) gm/dl Procalcitonin 8.95 H (0-0.5) ng/ml Urine Color Yellow Urine Appearance Turbid A (Clear) Urine pH >= 9.0 H (4.5-7.5) Ur Specific [place] 1.014 (1.000-1.030) Urine Protein 3+ H (Negative) Urine Glucose (UA) Negative (Negative) Urine Ketones Negative (Negative) Urine Blood 2+ H (Negative) Urine Nitrite Negative (Negative) Urine Bilirubin Negative (Negative) Urine Urobilinogen Negative (Negative) Ur Leukocyte Esterase 3+ H (Negative) Urine WBC (Auto) >50 H (0-5) /hpf Urine RBC (Auto) 11-20 H (0-2) /hpf U Hyaline Cast (Auto) 11-20 H (0-2) /lpf U Epithel Cells (Auto) 0-2 (0-2) /hpf Urine Bacteria (Auto) 4+ H (None Seen) Urine Comment Enterobacterales (PCR) DETECTED A (NotDetected) Proteus species (PCR) DETECTED A (NotDetected) blaIMP Car res Gene PCR Not Detected (NotDetected) KPC-Carbap Res Gene PCR Not Detected (NotDetected) blaNDM Car Res Gene PCR Not Detected (NotDetected) OXA-48 Carbapenem Resis Gene (PCR) Not Detected (NotDetected) blaVIM Car Res Gene PCR Not Detected (NotDetected) CTX-M Gene Resistance (PCR) Not Detected (NotDetected) Bld Cult ID Panel PCR See PCR Comment (NotDetected) Administered Medications Discontinued Medications Albuterol (Albuterol Hfa 8 Gm Inhaler) 2 puffs INH Q6 PRN PRN Reason: brochospasm Stop: 09/22/25 18:36 Last Admin: 08/24/25 17:44 Dose: 2 puffs Documented By: GERMAN Azithromycin (Azithromycin 250 Mg Tab) 500 mg PO QAM [facility] Stop: 08/28/25 18:36 Last Admin: 08/24/25 07:58 Dose: 500 mg Documented By: Admin: 08/23/25 19:31 Dose: 500 mg Documented By: JANINA Heparin Sodium (Porcine) (Heparin Sod 5,000 Unit/0.5 Ml Vial) 5,000 units SQ Q12 SONIA Stop: 09/22/25 20:59 Last Admin: 08/27/25 08:34 Dose: 5,000 units Documented By: chas Admin: 08/26/25 21:20 Dose: 5,000 units Documented By: Admin: 08/26/25 08:06 Dose: 5,000 units Documented By: chas Admin: 08/25/25 21:24 Dose: 5,000 units Documented By: Admin: 08/25/25 07:48 Dose: 5,000 units Documented By: Admin: 08/24/25 21:32 Dose: 5,000 units Documented By: Admin: 08/24/25 07:58 Dose: 5,000 units Documented By: Admin: 08/23/25 20:31 Dose: 5,000 units Documented By: JANINA Sodium Chloride (Nss) 1,000 mls @ 999 mls/hr IV .Q1H1M SONIA Stop: 08/23/25 15:15 Last Infusion: 08/23/25 15:32 Dose: Infused Documented By: Admin: 08/23/25 14:27 Dose: 999 mls/hr Documented By: WOLFGANG Cefepime HCl (Maxipime 2000mg) 2,000 mg in 20 mls @ 5 mls/min IV NOW STA; Protocol Stop: 08/23/25 14:07 Last Admin: 08/23/25 14:26 Dose: 5 mls/min Documented By: WOLFGANG Sodium Chloride (Nss) 1,000 mls @ 999 mls/hr IV .Q1H1M ONE Stop: 08/23/25 16:18 Last Infusion: 08/23/25 16:45 Dose: Infused Documented By: Admin: 08/23/25 15:33 Dose: 999 mls/hr Documented By: WOLFGANG Sodium Chloride (Nss) 500 mls @ 999 mls/hr IV .Q31M ONE Stop: 08/23/25 15:49 Last Infusion: 08/23/25 16:45 Dose: Infused Documented By: Admin: 08/23/25 15:33 Dose: 999 mls/hr Documented By: WOLFGANG Ceftriaxone Sodium (Rocephin) 2,000 mg in 50 mls @ 100 mls/hr IV Q24H SONIA Stop: 08/29/25 23:59 Last Infusion: 08/26/25 22:54 Dose: Infused Documented By: MNTommy Admin: 08/26/25 21:20 Dose: 100 mls/hr Documented By: Infusion: 08/25/25 22:09 Dose: Infused Documented By: Admin: 08/25/25 21:25 Dose: 100 mls/hr Documented By: Infusion: 08/24/25 22:11 Dose: Infused Documented By: Admin: 08/24/25 21:33 Dose: 100 mls/hr Documented By: Infusion: 08/23/25 21:18 Dose: Infused Documented By: Admin: 08/23/25 20:42 Dose: 100 mls/hr Documented By: DAKSHAK Sodium Bicarbonate 150 meq/ (Dextrose) 1,150 mls @ 80 mls/hr IV .[id number] SONIA Stop: 08/24/25 10:22 Last Infusion: 08/24/25 10:21 Dose: Infused Documented By: Admin: 08/23/25 20:32 Dose: 80 mls/hr Documented By: JANINA Sodium Chloride (Nss) 1,000 mls @ 80 mls/hr IV .[id number] SONIA Stop: 08/27/25 00:14 Last Infusion: 08/27/25 01:16 Dose: Infused Documented By: Admin: 08/26/25 12:16 Dose: 80 mls/hr Documented By: chas Umeclidinium/Vilanterol (Umeclidinium/Vilanterol 62.5/25mcg 7 Puffs/Inhaler) 1 puffs INH DAILY SONIA; Protocol Stop: 09/23/25 08:59 Last Admin: 08/27/25 08:34 Dose: 1 puffs Documented By: chas Admin: 08/26/25 09:18 Dose: 1 puffs Documented By: chas Admin: 08/25/25 07:48 Dose: 1 puffs Documented By: Admin: 08/24/25 07:59 Dose: 1 puffs Documented By: ZULLY Discharge Plan Visit Data Chief Complaint: Tachycardia Stated Complaint: TACHYCARDIA, DIFF. AMBULATING, URINARY SX ED Provider: Chente Martin Discharge Problem: Acute renal failure, Prostate cancer, Urinary retention, Obstructed, uropathy, Indwelling Denny catheter present, Complicated urinary tract infection Patient Disposition: Admitted As Inpatient Condition: Good Discharge Instructions Interventions: ED Discharge Assessment Last Done: 08/23/25 17:54 Discharge Problem: Acute renal failure Qualifiers: Acute renal failure type: unspecified Qualified Code(s): N17.9 - Acute kidney failure, unspecified
[2025-08-23] MEDS: CEFEPIME 2000MG 2,000 MG/20 ML SYR IV STA (14:26)
--- NOTE | 2025-08-23 14:26 | XRay Report ---
XR chest 1V portable CLINICAL HISTORY: Sepsis. COMPARISON STUDY: Chest CT April 15, 2025. Chest radiograph June 18, 2025. FINDINGS: Lordotic positioning is noted. There are several old left-sided rib fractures. There is no pneumothorax or pleural effusion. There is no consolidation to suggest pneumonia. Cardiomediastinal s ilhouette is normal. There is no evidence for pulmonary edema. IMPRESSION: No acute cardiopulmonary findings. ACT 112: Negative or not required by law. Electronically signed by: Humberto Garza M.D. 08/23/2025 2:24 PM
[2025-08-23] MEDS: SODIUM CHLORIDE 0.9% 1,000 ML IV SCH (14:27)
[2025-08-23 14:49] LABS: Alanine Aminotransferase 45.0 U/L (7-52); Albumin Level 3.9 gm/dl (3.4-5.0); Alkaline Phosphatase 97.0 U/L (34-104); Anion Gap 14.0 (3-11); Bilirubin,Total 0.8 mg/dl (0.2-1.0); Blood Urea Nitrogen 111.0 mg/dl (6-23); Calcium 10.0 mg/dl (8.6-10.3); Carbon Dioxide 21.0 mmol/L (21-32); Chloride 98.0 mmol/L (98-107); Creatinine Clr Calc Pharmacy 10.9 ml/min; Glucose 199.0 mg/dl (70-99(Fasting)); Magnesium 2.7 mg/dl (1.7-2.4); Potassium 5.3 mmol/L (3.5-5.1); Sodium 133.0 mmol/L (136-145); Total Protein 7.9 gm/dl (6.0-8.3)
[2025-08-23 14:53] LABS: Appearance Urine Turbid (Clear); Bacteria Urine Automated 4+ (None Seen); Epithelial Cell Urine Auto 0-2 /hpf (0-2); Glucose Urine UA Negative (Negative); WBC Urine Automated >50 /hpf (0-5)
[2025-08-23 14:56] LABS: Hematocrit (blood only) 35.4 % (42.0-52.0); Hemoglobin 12.2 g/dL (14.0-18.0); Mean Corpuscular Hemoglobin 30.4 pg (25.0-34.0); Mean Corpuscular Volume 88.3 fL (80.0-100.0); Platelet Count 217 K/uL (130-400); RDW Standard Deviation 49.4 fL (36.4-46.3); Red Blood Count 4.01 M/uL (4.70-6.10); White Blood Count 11.58 K/ul (4.8-10.8)
[2025-08-23 15:01] LABS: Acanthocytes 2+; Dohle Bodies 2+; Immature Granulocytes # (auto) 0.07 K/uL (0.01-0.20); Immature Granulocytes % (auto) 0.6 %; Polychromasia 1+; Toxic Granulation 1+
[2025-08-23] MEDS: SODIUM CHLORIDE 0.9% 1,000 ML IV ONE (15:33)
[2025-08-23] MEDS: SODIUM CHLORIDE 0.9% 500 ML IV ONE (15:33)
--- NOTE | 2025-08-23 15:47 | Urology Consultation ---
Date of Consultation August 23, 2025 Assessment & Plan (1) Bladder outlet obstruction: (2) LIDIA (acute kidney injury): (3) Urinary retention: 84-year-old male with history of prostate cancer and urinary retention managed with indwelling Denny catheter. He was seen in the outpatient urology office today and was sent over to the ED for evaluation of cough, dyspnea, tachypnea and tachycardia. Lab work showed a creatinine of 4.8, WBC 11.58, lactate of 2.9. His Denny catheter was replaced in ED with immediate output of greater than 1 L. He is getting admitted to the medicine service for acute renal failure and urosepsis. Patient afebrile, tachycardic and tachypneic Lab work reviewedcreatinine 4.8, WBC 11.58, hemoglobin 12.2, lactate 2.9 Urine and blood cultures are pending Received cefepime in ED Continue with broad-spectrum antibiotics and narrow per sensitivity data when available Denny catheter was replaced in the ED with immediate output of greater than 1 L Previous catheter was likely obstructed, now draining appropriately Maintain Denny catheter to gravity drainage Continue to trend labs Continue supportive care and medical management per hospital medicine service will follow, please contact our service with any additional questions or concerns Supervising Physician Co-Signing Physician Notes Patient seen and examined independently. He is doing okay with a catheter in place Has some hematuria History of Present Illness Reason for Consultation: obstructive uropathy Requesting Physician: Dr. Martin History of Present Illness This is an 84-year-old male who follows with urology for history of prostate cancer and urinary retention managed with indwelling Denny catheter. He was seen in the outpatient urology office today and was sent over to the ED for evaluation of cough, dyspnea, tachypnea and tachycardia. On arrival to ED, he was afebrile, tachycardic and tachypneic. Lab work showed WBC of 11.58, hemoglobin 12.2, sodium 133, potassium 5.3, creatinine 4.8 and lactate 2.9. His Denny catheter was replaced with immediate output of greater than 1 L of urine. Urinalysis showed 2+ blood, 3+ LE, >50 WBC, 11-20 RBC, and 4+ bacteria. Urine and blood cultures obtained. He was treated with IV fluids and cefepime. He is being admitted to the hospital medicine service for obstructive uropathy suspected urosepsis. Patient seen and examined in the emergency department. He is resting in litter, no apparent distress. He is arousable, but somnolent. He denies flank or suprapubic pain at present. Denny intact. He denies fever or chills. Allergies Allergy/AdvReac Type Severity Reaction Status Date / Time pollen extracts Allergy Intermediate SNEEZING, Verified 08/23/25 16:53 CONGESTION Home Medications Medication Instructions Recorded Confirmed Type Kefir 1 dose PO DAILY 04/15/25 08/23/25 History Wge-K-Fkxdiz Cysteine Tablet 1 tab PO DAILY 04/15/25 08/23/25 History alpha lipoic acid 300 mg capsule 300 mg PO DIRECTED PRN 04/15/25 08/23/25 History [facility]ED [facility] berberine chloride 500 mg-seaweed 1 cap PO DAILY 04/15/25 08/23/25 History 250 mg-chromium gly 7.5 mcg capsule bilberry 100 mg capsule 100 mg PO DAILY 04/15/25 08/23/25 History cyanocobalamin (vitamin B-12) 500 500 mcg PO DAILY 04/15/25 08/23/25 History mcg tablet (Vitamin B-12) flaxseed 1 ea PO DAILY 04/15/25 08/23/25 History multivitamin with minerals 1 tab PO DAILY 04/15/25 08/23/25 History turmeric 400 mg capsule 400 mg PO DAILY 04/15/25 08/23/25 History albuterol sulfate 90 mcg/actuation 2 puff inhalation Q6 PRN 08/23/25 08/23/25 History aerosol inhaler brochospasm coenzyme Q10 100 mg capsule 100 mg PO BID 08/23/25 08/23/25 History magnesium oxide 250 mg PO HS 08/23/25 08/23/25 History magnesium oxide 400 mg PO QAM 08/23/25 08/23/25 History omega-3s 720 mg-dha 300 mg-epa 360 1 cap PO DAILY 08/23/25 08/23/25 History mg-fish oil 1,200 mg capsule tiotropium 2.5 mcg-olodaterol 2.5 1 puff inhalation DAILY 08/23/25 08/23/25 History mcg/actuation mist for inhalation (Stiolto Respimat) Patient History Medical History Liver lesion Hematuria Elevated PSA COPD (chronic obstructive pulmonary disease) Cranial nerve III palsy, partial, right Surgical History History of hernia repair Social History Smoking Status: Never smoker Tobacco Type: Cigarettes Age Quit Using Tobacco: 70; Second Hand Exposure: No; Do You Dip or Chew Tobacco: No; Hx Alcohol Use: No Hx Substance Use: No Preferred Language: Tajik Communication Ability: Effective Carroting Machine Offbearer Required: No Beliefs That Will Affect Care: None Current Living Situation: Alone Feels Safe at Home: Yes Assistive Devices: Cane Review of Systems Constitutional: as per Subjective / HPI Genitourinary: + as per Subjective / HPI Physical Exam Constitutional: no acute distress Respiratory: + tachypneic; no respiratory distress an d no labored breathing Cardiovascular: Rate/Rhythm: + tachycardic Psychiatric: Orientation: oriented to person and cooperative Genitourinary: Denny draining light elijah Results & Data Vital Signs (Past 12 Hours) Vital Signs Temp Pulse Resp BP Pulse Ox O2 Del Method 08/23/25 14:46 105 H 28 H 121/79 96 Room Air 08/23/25 14:32 98 H 30 H 130/80 94 Room Air 08/23/25 14:29 93 Room Air 08/23/25 14:17 103 H 08/23/25 13:42 36.7 C 105 H 32 H 131/80 94 Room Air PG Care Time/CCT Total # of Minutes Spent Total Time Spent with Patient: Total time spent is greater than 50% in coordination of care (as documented) at patient's floor/unit and/or counseling patient: Coding Level of Care Code 01605 INT INP/OBS CARE 2/55MIN Diagnoses Bladder outlet obstruction N32.0 LIDIA (acute kidney injury) N17.9 Urinary retention R33.9
--- NOTE | 2025-08-23 16:55 | History & Physical Report ---
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 #Chronic urinary obstruction managed by chronic gore #Prostate cancer with met to liver - gore replaced by urology on 08/23 - maintain gore - he is on zoladex injections per OP urology note 08/23 (day of admission) - urology consulted #LIDIA - suspected secondary to bladder obstruction/postrenal - baseline Cr likely around 1.0, on admission was 4.8 with subsequent potassium of 5.3 - will do renal US - given IVF bolus in the ED of 2500mL, will hold off on further fluids at this time, encourage po - will check Cr in the am - renal US ordered #Hyperkalemia - on admission was 5.3 with repeat pending after IVF administered #UTI - UA drawn after gore replaced on 08/23 shows bacteria and blood - given his lactate and low 100s tachycardia he was given fluid bolus by ED of 2500mL - given dose cefepime in the ED - will do CTX - pending urine cx - pending blood cx #Cough, dry - CXR without acute process - has had dry cough for a few weeks, no fevers/SOB/chest pain - suspect atypical pneumonia although he does have a hx of COPD - will treat with po azithromycin for 5 days #COPD - not in overt exac on admission - continue home inhalers #HTN - hold ACEi/ARB in the setting of LIDIA, hold NSAIDs #Hx wide complex tachycardia - noted on prior admission (see cardiac consultation 04/18/2025) - will monitor with telemetry overnight VTE ppx: heparin given renal function Dispo: lives independently so will do PT/OT to determine discharge needs History of Present Illness Chief Complaint: Urinary retention Primary Care Provider: [facility] Pt is an 84 yo male with a past med hx of 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 Pt difficult to understand without dentures, but oriented and pleasant. He is fatigued appearing and states last night he had a lot of trouble sleeping. He states he would wake up often last night and toss and turn throughout the night but did not have any pain. He states he did have chills yesterday into today. He states he has also had a dry cough the last few weeks. He denies chest pain or SOB. He states he has not had any abdominal pain the last few days and other than chills and the pesky cough has been feeling generally fine. He states he lives on his own and is independent with ADLs. He states that he took himself to his urology appt earlier today. No complaints at the current moment other than feeling cold. Allergies Allergy/AdvReac Type Severity Reaction Status Date / Time pollen extracts Allergy Intermediate SNEEZING, Verified 08/23/25 16:53 CONGESTION Home Medications Medication Instructions Recorded Confirmed Type Kefir 1 dose PO DAILY 04/15/25 08/23/25 History Zoc-O-Odtibg Cysteine Tablet 1 tab PO DAILY 04/15/25 08/23/25 History alpha lipoic acid 300 mg capsule 300 mg PO DIRECTED PRN 04/15/25 08/23/25 History NEEDED PER [facility] berberine chloride 500 mg-seaweed 1 cap PO DAILY 04/15/25 08/23/25 History 250 mg-chromium gly 7.5 mcg capsule bilberry 100 mg capsule 100 mg PO DAILY 04/15/25 08/23/25 History cyanocobalamin (vitamin B-12) 500 500 mcg PO DAILY 04/15/25 08/23/25 History mcg tablet (Vitamin B-12) flaxseed 1 ea PO DAILY 04/15/25 08/23/25 History multivitamin with minerals 1 tab PO DAILY 04/15/25 08/23/25 History turmeric 400 mg capsule 400 mg PO DAILY 04/15/25 08/23/25 History albuterol sulfate 90 mcg/actuation 2 puff inhalation Q6 PRN 08/23/25 08/23/25 History aerosol inhaler brochospasm coenzyme Q10 100 mg capsule 100 mg PO BID 08/23/25 08/23/25 History magnesium oxide 250 mg PO HS 08/23/25 08/23/25 History magnesium oxide 400 mg PO QAM 08/23/25 08/23/25 History omega-3s 720 mg-dha 300 mg-epa 360 1 cap PO DAILY 08/23/25 08/23/25 History mg-fish oil 1,200 mg capsule tiotropium 2.5 mcg-olodaterol 2.5 1 puff inhalation DAILY 08/23/25 08/23/25 History mcg/actuation mist for inhalation (Stiolto Respimat) Past Med/Surg History Problem List (Updated 08/23/25 @ 17:13 by Shonda Orellana DO) Cough UTI (urinary tract infection) Dyspnea Wide-complex tachycardia Prostate cancer (Acute) Acute hyponatremia (Acute) LIDIA (acute kidney injury) (Acute) Bladder outlet obstruction (Acute) Abnormal computed tomography of abdomen and pelvis Urinary retention (Acute) Dysconjugate gaze (Acute) Lyme disease (Acute) Eye problems Medical History Liver lesion Hematuria Elevated PSA COPD (chronic obstructive pulmonary disease) Cranial nerve III palsy, partial, right Surgical History History of hernia repair Social History Smoking Status: Never smoker Tobacco Type: Cigarettes Age Quit Using Tobacco: 70; Second Hand Exposure: No; Do You Dip or Chew Tobacco: No; Tobacco Cessation Education Requested by Patient: No Hx Alcohol Use: No Hx Substance Use: No Preferred Language: Occitan Communication Ability: Effective Incinerator Attendant Required: No Beliefs That Will Affect Care: None Current Living Situation: Alone Other Information That Helps Us Care for You: No Feels Safe at Home: Yes Safety Concerns: Feels Safe At This Time Assistive Devices: Cane Review of Systems Review of Systems: Per HPI. Physical Exam Physical Exam: General: Alert and oriented but fatigued appearing, no acute distress, difficult to understand without dentures HEENT: Normocephalic, moist oral mucosa, Cardio: Regular rate and rhythm, Resp: Lungs clear to auscultation b/l but with scattered soft wheezes GI: Soft and nontender, nondistended, bowel sounds active Skin: Warm, pink, dry, Extremities: no edema Results & Data Results & Data Vital Signs (Past 12 Hours) Vital Signs Temp Pulse Resp BP Pulse Ox O2 Del Method 08/23/25 14:46 105 H 28 H 121/79 96 Room Air 08/23/25 14:32 98 H 30 H 130/80 94 Room Air 08/23/25 14:29 93 Room Air 08/23/25 14:17 103 H 08/23/25 13:42 36.7 C 105 H 32 H 131/80 94 Room Air Laboratory Results CBC, BMP, UA reviewed Code Status & VTE Plan Code Status Full code VTE Prophylaxis Plan VTE Prophylaxis will be ordered: Yes Supervising Physician Co-Signing Physician Notes I personally examined the patient and verified all chinchilla points of history and exam, discussed case, and agree with decision making with Dr. Orellana with the following additions/exceptions: S-this patient is an 84-year-old male who was seen at urology office today for Gore catheter exchange. Has been having chills and fatigue and not able to sleep. He was noted to have over a liter of urine in his bladder and his Gore catheter was exchanged and this was drained. He was sent to the ER for tachycardia and tachypnea. He has nonsevere sepsis and a UTI as well as acute kidney injury with a creatinine of 4.8, with hyperkalemia History and ROS otherwise reviewed as above O- Vitals Reviewed Gen: AAOx3, NAD HEENT: Anicteric sclerae, EOMI, edentulous CV: RRR no mgr nl S1S2 Pulm: CTAB no wcr Abd: +BS soft NT ND no masses or hernias Ext: [no edema Skin: No rashes, warm/dry Neuro: Full strength throughout ECG with LBBB, normal sinus rhythm, no acute ischemic changes A/P: 84-year-old male here with LIDIA and urinary retention, UTI, and hyperkalemia - Start bicarbonate drip for hyperkalemia and worsening metabolic acidosis due to LIDIA - Follow serial BMP - Maintain Gore catheter - Monitor for arrhythmias on telemetry-has a history of wide-complex tachycardia during previous hospitalization Resident Activity Tracking Resident Involvement: Resident Care Provided Care Provided: Adult Hospital Medicine
[2025-08-23 18:09] LABS: Anion Gap 12 (3-11); Blood Urea Nitrogen 110 mg/dl (6-23); Calcium 9.0 mg/dl (8.6-10.3); Carbon Dioxide 18 mmol/L (21-32); Chloride 105 mmol/L (98-107); Creatinine Clr Calc Pharmacy 12.4 ml/min; Glucose 153 mg/dl (70-99(Fasting)); Sodium 135 mmol/L (136-145)
[2025-08-23] MEDS ORDERED: MELATONIN 3 MG TAB PO PRN (18:37)
[2025-08-23] MEDS ORDERED: POLYETHYLENE (MIRALAX) 17 GM PACK PO PRN (18:37)
[2025-08-23] MEDS ORDERED: ONDANSETRON INJ 2 MG/ML 2 ML VIAL IV PRN (18:37)
[2025-08-23] MEDS ORDERED: ACETAMINOPHEN 325 MG TAB PO PRN (18:37)
[2025-08-23] MEDS ORDERED: STAT IV/IM STA (19:20)
[2025-08-23] MEDS: AZITHROMYCIN 250 MG TAB PO SCH (19:31)
--- NOTE | 2025-08-23 19:49 | Billing Data ---
Date of Service August 23, 2025 Coding Level of Care Code 42211 INT INP/OBS CARE
--- NOTE | 2025-08-23 19:50 | Billing Data ---
Date of Service August 23, 2025 Coding Level of Care Code 32839 INT INP/OBS CARE
[2025-08-23] MEDS: HEPARIN SOD 5,000 UNIT/0.5 ML VIAL SQ SCH (20:31)
[2025-08-23] MEDS: SODIUM BICARBONATE 8.4% 150 MEQ in DEXTROSE 5% 1,000 ML IV SCH (20:32)
[2025-08-23] MEDS: cefTRIAXone SODIUM 2,000 MG/50 ML BAG IV SCH (20:42)
[2025-08-24 05:35] LABS: A calco-baum cmplx NotReported Not Detected (NotDetected); Bact fragilis Not Reported Not Detected (NotDetected); Blood Culture Id Panel See PCR Comment (NotDetected); C auris Not Reported Not Detected (NotDetected); CTX-M Resistant Gene Not Detected (NotDetected); Calbicans Not Reported Not Detected (NotDetected); Candida glabrata Not Reported Not Detected (NotDetected); Candida krusei Not Reported Not Detected (NotDetected); Cneoformans/gatti Not Reported Not Detected (NotDetected); Cparapsilosis Not Reported Not Detected (NotDetected); Ctropicalis Not Reported Not Detected (NotDetected); E cloacae compx Not Reported Not Detected (NotDetected); Efaecalis Not Reported Not Detected (NotDetected); Efaecium Not Reported Not Detected (NotDetected); Enterobacterales Not Reported DETECTED (NotDetected); Escherichia coli Not Reported Not Detected (NotDetected); H influenzae Not Reported Not Detected (NotDetected); IMP Resistant Gene Not Detected (NotDetected); K aerogenes Not Reported Not Detected (NotDetected); KPC Resistant Gene Not Detected (NotDetected); Koxytoca Not Reported Not Detected (NotDetected); Kpneumoniae grp Not Reported Not Detected (NotDetected); Lmonocyt Not Reported Not Detected (NotDetected); N meningitidis Not Reported Not Detected (NotDetected); NDM Resistant Gene Not Detected (NotDetected); OXA 48 Like Resistant Gene Not Detected (NotDetected); P aeruginosa Not Reported Not Detected (NotDetected); Proteus spp Not Reported DETECTED (NotDetected); Salmonella spp Not Reported Not Detected (NotDetected); Staph lugdunensis Not Reported Not Detected (NotDetected); Staph spp. Not Reported Not Detected (NotDetected); Staphaureus Not Reported Not Detected (NotDetected); Staphepi Not Reported Not Detected (NotDetected); Stenmaltophilia Not Reported Not Detected (NotDetected); Strep agal(GrpB) Not Reported Not Detected (NotDetected); Strep pneum Not Reported Not Detected (NotDetected); Strep pyog (GrpA) Not Reported Not Detected (NotDetected); Strep spp Not Reported Not Detected (NotDetected); VIM Resistant Gene Not Detected (NotDetected)
[2025-08-24 06:25] LABS: Enterobacterales DETECTED (NotDetected); Proteus species DETECTED (NotDetected)
[2025-08-24 07:16] LABS: Hematocrit (blood only) 27.6 % (42.0-52.0); Hemoglobin 9.5 g/dL (14.0-18.0); Immature Granulocytes # (auto) 0.08 K/uL (0.01-0.20); Immature Granulocytes % (auto) 1.0 %; Mean Corpuscular Hemoglobin 30.2 pg (25.0-34.0); Mean Corpuscular Volume 87.6 fL (80.0-100.0); Platelet Count 161 K/uL (130-400); RDW Standard Deviation 49.3 fL (36.4-46.3); Red Blood Count 3.15 M/uL (4.70-6.10); White Blood Count 7.75 K/ul (4.8-10.8)
[2025-08-24 07:43] LABS: Alanine Aminotransferase 38.0 U/L (7-52); Albumin Globulin Ratio 0.9 (0.9-2); Albumin Level 3.0 gm/dl (3.4-5.0); Alkaline Phosphatase 65.0 U/L (34-104); Anion Gap 10.0 (3-11); Bilirubin,Total 0.6 mg/dl (0.2-1.0); Blood Urea Nitrogen 99.0 mg/dl (6-23); Calcium 8.6 mg/dl (8.6-10.3); Carbon Dioxide 21.0 mmol/L (21-32); Chloride 107.0 mmol/L (98-107); Creatinine Clr Calc Pharmacy 14.4 ml/min; Globulin 3.2 gm/dl (2.5-4.0); Glucose 136.0 mg/dl (70-99(Fasting)); Potassium 4.2 mmol/L (3.5-5.1); Sodium 138.0 mmol/L (136-145); Total Protein 6.2 gm/dl (6.0-8.3)
[2025-08-24] MEDS: UMECLIDINIUM/VILANTEROL 62.5/25MCG 7 PUFFS/INHALER INH SCH (07:59)
--- NOTE | 2025-08-24 09:07 | Urology Progress Note ---
Date of Service August 24, 2025 Assessment & Plan (1) Prostate cancer: (2) LIDIA (acute kidney injury): Plan Prostate cancer, urinary retention with LIDIA Creatinine improving already Has an ultrasound scheduled this morning, would anticipate that he will still have some residual hydronephrosis, however, I do not believe he is going to require any urological intervention as long as he continues to improve clinically We will follow from a distance Admission and Anticipated Discharge Date Admission Date: August 23, 2025 Subjective Good urine output overnight No major issues except for some's mild hematuria as would be expected Creatinine is decreased already to 3.5 He does have an ultrasound scheduled this morning His biggest complaint subjectively today is chest discomfort and cough Physical Exam Physical Exam: Afebrile, vital signs stable Urine clear with blood tingeing it Results & Data Vital Signs (Past 12 Hours) Vital Signs Temp Pulse Pulse Resp BP Pulse Ox O2 Del Method 08/24/25 07:46 37.0 C 103 H 20 111/63 91 Room Air 08/24/25 07:19 96 H 08/24/25 03:44 37.0 C 99 H 18 104/60 94 Room Air 08/23/25 23:05 37.0 C 108 H 18 113/58 L 95 Room Air 08/23/25 22:00 104 H PG Care Time/CCT Total # of Minutes Spent Total Time Spent with Patient: Total time spent is greater than 50% in coordination of care (as documented) at patient's floor/unit and/or counseling patient: Coding Level of Care Code 33946 SUB INP/OBS CARE 2/35MIN Diagnoses Prostate cancer C61 LIDIA (acute kidney injury) N17.9
--- NOTE | 2025-08-24 11:15 | Ultrasound Report ---
ULTRASOUND KIDNEYS AND BLADDER CLINICAL HISTORY: Acute renal insufficiency. COMPARISON STUDY: Abdominal CT dated 04/15/2025 TECHNIQUE: Real-time, grayscale, and color flow sonography of the kidneys and bladder is performed. I mages are reviewed in the transverse and longitudinal planes. FINDINGS: Kidneys: The kidneys are normal in size and echotexture. The right kidney measures 10.5 cm in length and the left kidney measures 10.9 cm in length. There is no hydronephrosis. No shadowing renal calcu li are identified. A 1.6 cm left renal cyst is noted. There is no sonographic evidence of contour def orming renal mass lesion. No perinephric fluid is identified. Bladder: Prostate gland is enlarged and heterogeneous. A Denny catheter balloon is located within the substance of the prostate gland. There is median lobe hypertrophy. The bladder is partially distende d, and the wall is thickened/trabeculated indicating chronic outlet obstruction. Ureteral jets are no t clearly seen. Upper abdomen: Echogenic hepatic lesions are noted and may represent metastatic disease. IMPRESSION: 1. The kidneys are normal in size and without hydronephrosis. 2. There is evidence of chronic bladder outlet obstruction. 3. A Denny catheter balloon appears to be located within the substance of the prostate gland. Reposit ioning is likely indicated. 4. Hepatic lesions are noted may represent metastatic disease. Correlate with the oncological history . ACT 112: Negative or not required by law. Electronically signed by: Fabiano Lombardo M.D. 08/24/2025 11:13 AM
[2025-08-24] MEDS ORDERED: guaiFENesin 600 MG TABCR PO PRN (16:44)
--- NOTE | 2025-08-24 16:46 | Hospitalist Progress Note ---
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 #Chronic urinary obstruction managed by chronic gore | Prostate cancer with met to liver - gore replaced on 08/23 - maintain gore - he is on zoladex injections - was schedule to see Dr. Alvarenga and injection on 08/25 - this appointment was cancelled and will need to be rescheduled when patient is discharged - urology consulted - would not Expect any urological intervention this stay, aware of hematureia #LIDIA | Hyperkalemia - suspected secondary to bladder obstruction/postrenal. Renal US with normal kidneys, no hydronephrosis. Evidence of chronic bladder obstruction. Gore in the prostate. Given 2.5L IVF in the ED - baseline Cr ~1.0, on admission was 4.8 with subsequent potassium of 5.3 Cr improving now 3.5, K has normalized PT/OT #Bacteremia from UTI | Gore catheter-associated UTI, POA Continue ceftriaxone UC /BC with proteus, sensitivies pending #Cough, dry | hx of COPD - CXR without acute process, has had dry cough for a few weeks, no fevers/SOB/chest pain no indication for abx supportive care: mucinex prn, IS, prn albuterol Continue home inhalers #Anemia - Hgb 12.2 on admission 9.5 suspect component of dilution with IVF but also possible blood loss from hematuria Check AM CBC #HTN - hold ACEi/ARB in the setting of LIDIA, hold NSAIDs #Hx wide complex tachycardia - noted on prior admission (see cardiac consultation 04/18/2025) VTE ppx: heparin given renal function Dispo: continued inpatient stay, stable for downgrade to medical follow ups on discharge: onc appointment needs rescheduled Admission and Anticipated Discharge Date Admission Date: August 23, 2025 Supervising Physician Co-Signing Physician Notes PA Supervision Note: I did not personally see or examine the patient today, but I verified all chinchilla points of BENEDICTO Yancey's assessment and plan with the following exceptions/additions: None Subjective patient seen this morning lying in bed. He denies pain. Reports that his appetite is improving. We discussed his lab results and his ultrasound findings. His urine is also red and is swollen discussed that is likely because his catheter is in the wrong place. Discussed with nursing to have this adjusted telemetry sinus rhythms with some tachycardia in the 90s to 100s Review of Systems Review of Systems: All systems reviewed & are unremarkable except as noted in Subjective Physical Exam Physical Exam: General: NAD, VS as above Resp: normal respiratory effort, lungs clear to auscultation CV: RRR, no murmur, Abd: normal bowel sounds, soft, with suprapubic tenderness Gore in place draining bloody urine Extremities: Moves all extremities, no edema Neuro: A&O x3, Skin: intact, no lesions noted Results & Data Results & Data Vital Signs (Past 12 Hours) Vital Signs Temp Pulse Pulse Resp BP Pulse Ox Pulse Ox 08/24/25 15:20 94 08/24/25 15:18 97.3 F L 93 H 20 106/58 L 94 08/24/25 13:55 95 H 08/24/25 11:33 97.5 F L 96 H 20 113/64 97 08/24/25 09:12 08/24/25 07:46 98.6 F 103 H 20 111/63 91 08/24/25 07:19 96 H O2 Del Method O2 Del Method 08/24/25 15:20 Room Air 08/24/25 15:18 Room Air 08/24/25 13:55 08/24/25 11:33 Room Air 08/24/25 09:12 Room Air 08/24/25 07:46 Room Air 08/24/25 07:19 Laboratory Results CBC and chemistry reviewed LFTs reviewed Diagnostic Findings renal ultrasound reviewed PG Care Time/CCT Total # of Minutes Spent Total Time Spent with Patient: Total time spent is greater than 50% in coordination of care (as documented) at patient's floor/unit and/or counseling patient: Coding Level of Care Code 86190 SUB INP/OBS CARE 3/50MIN Diagnoses Bladder outlet obstruction N32.0 Prostate cancer C61 Wide-complex tachycardia R00.0 LIDIA (acute kidney injury) N17.9 UTI (urinary tract infection) N39.0 Cough R05.9"
[2025-08-24] MEDS: ALBUTEROL HFA 8 GM INHALER INH PRN (17:44)
--- NOTE | 2025-08-24 22:46 | Electrocardiogram Report ---
Test Reason : Blood Pressure : */* mmHG Vent. Rate : 107 BPM Atrial Rate : 107 BPM P-R Int : 216 ms QRS Dur : 130 ms QT Int : 370 ms P-R-T Axes : 56 -16 113 degrees QTcB Int : 493 ms Sinus tachycardia with 1st degree A-V block Left bundle branch block Abnormal ECG When compared with ECG of 18-Apr-2025 08:16, Ventricular runs are no longer present Confirmed by Greg Heredia ([id number]) on 08/24/2025 10:46:21 PM Referred By: REFERRED SELF Confirmed By: Greg Heredia
[2025-08-25 07:12] LABS: Hematocrit (blood only) 26.9 % (42.0-52.0); Hemoglobin 9.1 g/dL (14.0-18.0); Immature Granulocytes # (auto) 0.23 K/uL (0.01-0.20); Immature Granulocytes % (auto) 2.3 %; Mean Corpuscular Hemoglobin 30.0 pg (25.0-34.0); Mean Corpuscular Volume 88.8 fL (80.0-100.0); Platelet Count 191 K/uL (130-400); RDW Standard Deviation 49.8 fL (36.4-46.3); Red Blood Count 3.03 M/uL (4.70-6.10); White Blood Count 9.88 K/ul (4.8-10.8)
[2025-08-25 07:29] LABS: Alanine Aminotransferase 57.0 U/L (7-52); Albumin Globulin Ratio 0.9 (0.9-2); Albumin Level 3.0 gm/dl (3.4-5.0); Alkaline Phosphatase 85.0 U/L (34-104); Anion Gap 10.0 (3-11); Bilirubin,Total 0.6 mg/dl (0.2-1.0); Blood Urea Nitrogen 88.0 mg/dl (6-23); Calcium 8.6 mg/dl (8.6-10.3); Carbon Dioxide 23.0 mmol/L (21-32); Chloride 107.0 mmol/L (98-107); Creatinine Clr Calc Pharmacy 19.5 ml/min; Globulin 3.2 gm/dl (2.5-4.0); Glucose 159.0 mg/dl (70-99(Fasting)); Potassium 3.8 mmol/L (3.5-5.1); Sodium 140.0 mmol/L (136-145); Total Protein 6.2 gm/dl (6.0-8.3)
--- NOTE | 2025-08-25 12:00 | Infectious Disease Consult ---
Date of Consultation August 25, 2025 Assessment & Plan (1) Gram-negative bacteremia: (2) UTI (urinary tract infection): (3) Bladder outlet obstruction: Plan Problems: #Proteus mirabilis bacteremia #Complicated UTI with Proteus mirabilis and Morganella morganii #Urinary obstruction #LIDIA: improving Micro: 08/23 UCx: Proteus mirabilis (R amox/clav, amp, amp/sul, cefaz, cefuroxime. 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 On presentation, pt was afebrile, HR 105, RR 32, BP 131/80, 94% on room air. Labs showed WBC 11.58, Cr 4.8, procal 8.95. Gore catheter replaced with immediate output of greater than 1 L of urine. UA with >50 WBCs. UCx and BCx obtained, and pt started on cefepime. Urology consulted, felt the previous catheter was likely obstructed, now draining appropriately. Renal US on 08/24 showed no hydronephrosis, evidence of chronic bladder outlet obstruction, and gore catheter balloon appeared to be located within the substance of the prostate gland. BCx grew Proteus mirabilis. UCx grew Proteus mirabilis and Morganella morganii. Cefepime narrowed to ceftriaxone on 08/24. Discussion: Proteus mirabilis bacteremia likely 2/2 urinary obstruction. Interesting that the Proteus in the blood and the urine culture have different susceptibility patterns. Morganella morganii is not one of the Enterobacterales at moderate ris k of clinically significant AmpC production, therefore will continue with ceftriaxone as there is likely good source control of the infection. Recommendations: - Can continue ceftriaxone 2 g IV q24h. Can complete a total 7 day course of antibiotics through 08/29/25. If pt is discharging, this can be changed to levofloxacin 750 mg PO q48h for CrCl 20-50 Will sign off. Consultation Information This patient recommendation is based on a telemedicine consult request which was completed asynchronously through chart review and information provided by the primary physician. The patient was not seen or examined today. The evaluation is consultative in nature and all patient care and treatment decisions can either be accepted or rejected by the patient's primary hospital-based treating physician using their own independent medical judgment for their patient. Cloth Folder Machine contact information: Please call [facility] . 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 On presentation, pt was afebrile, HR 105, RR 32, BP 131/80, 94% on room air. Labs showed WBC 11.58, Cr 4.8, procal 8.95. Gore catheter replaced with immediate output of greater than 1 L of urine. UA with >50 WBCs. UCx and BCx obtained, and pt started on cefepime. Urology consulted, felt the previous catheter was likely obstructed, now draining appropriately. Renal US on 08/24 showed no hydronephrosis, evidence of chronic bladder outlet obstruction, and gore catheter balloon appeared to be located within the substance of the prostate gland. BCx grew Proteus mirabilis. UCx grew Proteus mirabilis and Morganella morganii. Allergies Allergy/AdvReac Type Severity Reaction Status Date / Time pollen extracts Allergy Intermediate SNEEZING, Verified 08/23/25 16:53 CONGESTION Home Medications Medication Instructions Recorded Confirmed Type Kefir 1 dose PO DAILY 04/15/25 08/23/25 History Sso-I-Lapjig Cysteine Tablet 1 tab PO DAILY 04/15/25 08/23/25 History alpha lipoic acid 300 mg capsule 300 mg PO DIRECTED PRN 04/15/25 08/23/25 History [facility]ED PER [facility] berberine chloride 500 mg-seaweed 1 cap PO DAILY 04/15/25 08/23/25 History 250 mg-chromium gly 7.5 mcg capsule bilberry 100 mg capsule 100 mg PO DAILY 04/15/25 08/23/25 History cyanocobalamin (vitamin B-12) 500 500 mcg PO DAILY 04/15/25 08/23/25 History mcg tablet (Vitamin B-12) flaxseed 1 ea PO DAILY 04/15/25 08/23/25 History multivitamin with minerals 1 tab PO DAILY 04/15/25 08/23/25 History turmeric 400 mg capsule 400 mg PO DAILY 04/15/25 08/23/25 History albuterol sulfate 90 mcg/actuation 2 puff inhalation Q6 PRN 08/23/25 08/23/25 History aerosol inhaler brochospasm coenzyme Q10 100 mg capsule 100 mg PO BID 08/23/25 08/23/25 History magnesium oxide 250 mg PO HS 08/23/25 08/23/25 History magnesium oxide 400 mg PO QAM 08/23/25 08/23/25 History omega-3s 720 mg-dha 300 mg-epa 360 1 cap PO DAILY 08/23/25 08/23/25 History mg-fish oil 1,200 mg capsule tiotropium 2.5 mcg-olodaterol 2.5 1 puff inhalation DAILY 08/23/25 08/23/25 History mcg/actuation mist for inhalation (Stiolto Respimat) Patient History Medical History Liver lesion Hematuria Elevated PSA COPD (chronic obstructive pulmonary disease) Cranial nerve III palsy, partial, right Surgical History History of hernia repair Social History Smoking Status: Never smoker Tobacco Type: Cigarettes Age Quit Using Tobacco: 70; Second Hand Exposure: No; Do You Dip or Chew Tobacco: No; Hx Alcohol Use: No Hx Substance Use: No Preferred Language: Luxembourgish Communication Ability: Effective Soil Tester Required: No Beliefs That Will Affect Care: None Current Living Situation: Alone Feels Safe at Home: Yes Assistive Devices: Cane, Walker and Other Results & Data Vital Signs (Past 12 Hours) Vital Signs Temp Pulse Resp BP Pulse Ox O2 Del Method 08/25/25 08:04 Room Air 08/25/25 07:44 36.8 C 88 18 106/64 94 Room Air
--- NOTE | 2025-08-25 12:15 | Hospitalist Progress Note ---
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 #Chronic urinary obstruction managed by chronic gore | Prostate cancer with met to liver - gore replaced on 08/23 - maintain gore - he is on zoladex injections - was schedule to see Dr. Alvarenga and injection on 08/25 - this appointment was cancelled and will need to be rescheduled when patient is discharged - urology consulted - would not Expect any urological intervention this stay, aware of hematuria LFT elevations likely secondary to metastasis #LIDIA | Hyperkalemia - suspected secondary to bladder obstruction/postrenal. Renal US with normal kidneys, no hydronephrosis. Evidence of chronic bladder obstruction. Gore in the prostate. Given 2.5L IVF in the ED - baseline Cr ~1.0, on admission was 4.8 with subsequent potassium of 5.3 Cr improving now 2.5, K has normalized #Bacteremia from UTI | Gore catheter-associated UTI, POA Continue ceftriaxone UC with proteus and morganella, some resistances. BC arias sensative proteus Discussed with pharmacy - would not recommend PO cephalosporin given the cefuroxime resistant. Bactrim not good option with LIDIA/hyperkalemia. Cipro consider, but QTc borderline. Rec ID consult for finalized rec ID consult pending #Cough, dry | hx of COPD - CXR without acute process, has had dry cough for a few weeks, no fevers/SOB/chest pain. no indication for abx supportive care: mucinex prn, IS, prn albuterol Continue home inhalers #Anemia - Hgb 12.2 on admission 9.5 suspect component of dilution with IVF but also possible blood loss from hematuria - hgb stable 9.0, hematuria is clearing. No intervention, will continue to trend labs. Check AM CBC #HTN - hold ACEi/ARB in the setting of LIDIA, hold NSAIDs #Hx wide complex tachycardia - noted on prior admission (see cardiac consultation 04/18/2025) VTE ppx: heparin Dispo: continued inpatient stay, trending Cr, awaiting ID recs ,PT/OT - recommend home with walker use follow ups on discharge: onc appointment needs rescheduled Admission and Anticipated Discharge Date Admission Date: August 23, 2025 Supervising Physician Co-Signing Physician Notes PA Supervision Note: I did not personally see or examine the patient today, but I verified all chinchilla points of BENEDICTO Yancey's assessment and plan with the following exceptions/additions: None Subjective patient seen sitting up in the chairreports feeling well. His pelvic/abdominal pain has improved, Gore is now draining light pink/orange- tinged urine. We discussed his kidney function numbers and the necessity to remain in the hospital and he was agreeable. We did also discuss the need for infectious disease consultation Review of Systems Review of Systems: All systems reviewed & are unremarkable except as noted in Subjective Physical Exam Physical Exam: General: NAD, VS as above Resp: normal respiratory effort, lungs clear to auscultation CV: RRR, no murmur, Abd: normal bowel sounds, soft, nontendersuprapubic tenderness has resolved Gore in place draining light pink/orange urinemuch improved from yesterday Extremities: Moves all extremities, no edema Neuro: A&O x3, Skin: intact, no lesions noted Results & Data Results & Data Vital Signs (Past 12 Hours) Vital Signs Temp Pulse Resp BP Pulse Ox O2 Del Method 08/25/25 08:04 Room Air 08/25/25 07:44 98.2 F 88 18 106/64 94 Room Air Laboratory Results CBC and chemistry reviewed PG Care Time/CCT Total # of Minutes Spent Total Time Spent with Patient: Total time spent is greater than 50% in coordination of care (as documented) at patient's floor/unit and/or counseling patient: Coding Level of Care Code 60638 SUB INP/OBS CARE 3/50MIN Diagnoses Bladder outlet obstruction N32.0 Prostate cancer C61 Wide-complex tachycardia R00.0 LIDIA (acute kidney injury) N17.9 UTI (urinary tract infection) N39.0 Cough R05.9"
--- NOTE | 2025-08-25 21:42 | Electrocardiogram Report ---
Test Reason : Blood Pressure : */* mmHG Vent. Rate : 105 BPM Atrial Rate : 105 BPM P-R Int : 202 ms QRS Dur : 132 ms QT Int : 366 ms P-R-T Axes : 68 -18 103 degrees QTcB Int : 483 ms Sinus tachycardia Left bundle branch block Abnormal ECG When compared with ECG of 18-Apr-2025 08:16, Ventricular runs are no longer present Confirmed by Greg Heredia ([id number]) on 08/25/2025 9:41:48 PM Referred By: REFERRED SELF Confirmed By: Greg Heredia
[2025-08-26 07:09] LABS: Hematocrit (blood only) 27.7 % (42.0-52.0); Hemoglobin 9.5 g/dL (14.0-18.0); Mean Corpuscular Hemoglobin 30.5 pg (25.0-34.0); Mean Corpuscular Volume 89.1 fL (80.0-100.0); Platelet Count 218 K/uL (130-400); RDW Standard Deviation 50.3 fL (36.4-46.3); Red Blood Count 3.11 M/uL (4.70-6.10); White Blood Count 10.73 K/ul (4.8-10.8)
[2025-08-26 07:45] LABS: Anion Gap 9.0 (3-11); Calcium 8.7 mg/dl (8.6-10.3); Carbon Dioxide 23.0 mmol/L (21-32); Chloride 108.0 mmol/L (98-107); Potassium 3.8 mmol/L (3.5-5.1); Sodium 140.0 mmol/L (136-145)
[2025-08-26 07:50] LABS: Blood Urea Nitrogen 73.0 mg/dl (6-23); Creatinine Clr Calc Pharmacy 24.5 ml/min; Glucose 138.0 mg/dl (70-99(Fasting))
[2025-08-26 07:58] LABS: Immature Granulocytes # (auto) 0.55 K/uL (0.01-0.20); Immature Granulocytes % (auto) 5.1 %
[2025-08-26] MEDS: SODIUM CHLORIDE 0.9% 1,000 ML IV SCH (12:16)
--- NOTE | 2025-08-26 12:30 | Hospitalist Progress Note ---
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 #Chronic urinary obstruction managed by chronic gore | Prostate cancer with met to liver - gore replaced on 08/23 - maintain gore - he is on zoladex injections - was schedule to see Dr. Alvarenga and injection on 08/25 - this appointment was cancelled and will need to be rescheduled when patient is discharged - urology consulted - would not Expect any urological intervention this stay, aware of hematuria - LFT elevations likely secondary to metastasis #LIDIA | Hyperkalemia - suspected secondary to bladder obstruction/postrenal. Renal US with normal kidneys, no hydronephrosis. Evidence of chronic bladder obstruction. Gore in the prostate. Given 2.5L IVF in the ED - baseline Cr ~1.0, on admission was 4.8 with subsequent potassium of 5.3 Cr improving now 2.5, K has normalized --> Cr downtrended to 2.06, add 1L of NSS @ 80ml/hr x1 bag, repeat BMP in AM #Bacteremia from UTI | Gore catheter-associated UTI, POA Continue ceftriaxone UC with proteus and morganella, some resistances. BC arias sensitive proteus Discussed with pharmacy - would not recommend PO cephalosporin given the cefuroxime resistant. Appreciate ID input, rec continued ceftriaxone thru 08/29 but can transition to Levaquin 750mg q48h upon d/c #Cough, dry | hx of COPD - CXR without acute process, has had dry cough for a few weeks, no fevers/SOB/chest pain. no indication for abx supportive care: mucinex prn, IS, prn albuterol Continue home inhalers #Anemia - Hgb 12.2 on admission 9.5 suspect component of dilution with IVF but also possible blood loss from hematuria - hgb stable 9.0, hematuria is clearing. No intervention, will continue to trend labs. Check AM CBC #HTN - hold ACEi/ARB in the setting of LIDIA, hold NSAIDs #Hx wide complex tachycardia - noted on prior admission (see cardiac consultation 04/18/2025) VTE ppx: heparin Dispo: continued inpatient stay, trending Cr, ideally want to see Cr closer to baseline. Possibly home tomorrow with services pending renal function follow ups on discharge: onc appointment needs rescheduled Admission and Anticipated Discharge Date Admission Date: August 23, 2025 Supervising Physician Co-Signing Physician Notes PA Supervision Note: I did not personally see or examine the patient today, but I verified all chinchilla points of BENEDICTO Ayala's assessment and plan with the following exceptions/additions: None Subjective Feliberto is a pleasant 84 yo M who is seen today on rounds, no complaints. He is hospitalized with bladder outlet obstruction d/t prostate ca with mets to liver, LIDIA and bacteremia. His renal function continues to slowly improve. Catheter present. He denies cp or dyspnea. Endorses a slight cough. No fever or chills. Review of Systems 2 Review of Systems: All systems reviewed and are unremarkable except as noted in HPI and below. Denies fever, chills, fatigue, headache, nasal congestion, sore throat, chest pain, shortness of breath, palpitations, orthopnea, PND, abdominal pain, n/v/d, constipation, back pain, joint pain or swelling, easy bruising or bleeding, skin lesions or rashes. Physical Exam 2 Physical Exam: GENERAL: 84 yo elderly WM. A&O x3, pleasant/cooperative, no distress. LUNGS: Nonlabored, few scattered exp wheezes. No rhonchi/rales CARDIOVASCULAR: Regular rate and rhythm ABDOMEN: Soft, non-tender and non-distended. BS normoactive x 4 quad. : Gore in place, draining cloudy urine with some sediment, no gross hematuria EXTREMITIES: No edema. Non-tender. Peripheral pulses +2/4. SKIN: Warm, dry, intact. No rashes or lesions. Results & Data Results & Data Vital Signs (Past 12 Hours) Vital Signs Temp Pulse Resp BP BP Pulse Ox O2 Del Method 08/26/25 08:00 Room Air 08/26/25 07:24 36.4 C L 96 H 20 121/65 96 Room Air 08/26/25 03:32 105 H 18 08/26/25 03:30 Room Air 08/26/25 03:28 36.6 C 118 H 21 108/70 95 Room Air Laboratory Results 08/26/25 06:16 08/26/25 06:16 PG Care Time/CCT Total # of Minutes Spent Total Time Spent with Patient: Total time spent is greater than 50% in coordination of care (as documented) at patient's floor/unit and/or counseling patient: 36 minutes Coding Level of Care Code 51332 SUB INP/OBS CARE 2/35MIN Diagnoses Bladder outlet obstruction N32.0 Prostate cancer C61 Wide-complex tachycardia R00.0 LIDIA (acute kidney injury) N17.9 UTI (urinary tract infection) N39.0 Cough R05.9"
[2025-08-27 07:04] VITALS: BP 108/56; RESP 16; TEMP 98.1; O2SAT 97
[2025-08-27 07:24] LABS: Anion Gap 7.0 (3-11); Blood Urea Nitrogen 52.0 mg/dl (6-23); Calcium 8.5 mg/dl (8.6-10.3); Carbon Dioxide 24.0 mmol/L (21-32); Chloride 110.0 mmol/L (98-107); Creatinine Clr Calc Pharmacy 29.5 ml/min; Glucose 134.0 mg/dl (70-99(Fasting)); Magnesium 2.3 mg/dl (1.7-2.4); Potassium 3.7 mmol/L (3.5-5.1); Sodium 141.0 mmol/L (136-145)
--- NOTE | 2025-08-27 10:15 | Discharge Summary ---
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 #Chronic urinary obstruction managed by chronic gore | Prostate cancer with met to liver - gore replaced on 08/23 - maintain gore - he is on zoladex injections - was schedule to see Dr. Alvarenga and injection on 08/25 - this appointment was cancelled and will need to be rescheduled when patient is discharged - urology consulted - would not Expect any urological intervention this stay, aware of hematuria - LFT elevations likely secondary to metastasis #LIDIA | Hyperkalemia - suspected secondary to bladder obstruction/postrenal. Renal US with normal kidneys, no hydronephrosis. Evidence of chronic bladder obstruction. Gore in the prostate. Given 2.5L IVF in the ED - baseline Cr ~1.0, on admission was 4.8 with subsequent potassium of 5.3 Cr improving now 2.5, K has normalized --> Cr downtrended to 2.06, add 1L of NSS @ 80ml/hr x1 bag, repeat BMP in AM #Bacteremia from UTI | Gore catheter-associated UTI, POA Continue ceftriaxone UC with proteus and morganella, some resistances. BC arias sensitive proteus Discussed with pharmacy - would not recommend PO cephalosporin given the cefuroxime resistant. Appreciate ID input, rec continued ceftriaxone thru 08/29 but can transition to Levaquin 750mg q48h upon d/c - Will complete course of Levaquin 750mg with a dose on 08/27 and a dose on Wednesday 08/29 #Cough, dry | hx of COPD - CXR without acute process, has had dry cough for a few weeks, no fevers/SOB/chest pain. no indication for abx supportive care: mucinex prn, IS, prn albuterol Continue home inhalers #Anemia - Hgb 12.2 on admission 9.5 suspect component of dilution with IVF but also possible blood loss from hematuria - hgb stable 9.0, hematuria is clearing. No intervention, will continue to trend labs. Check AM CBC #HTN - hold ACEi/ARB in the setting of LIDIA, hold NSAIDs #Hx wide complex tachycardia - noted on prior admission (see cardiac consultati on 04/18/2025) Patient is medically and hemodynamically stable for discharge home today. Will need urology follow up and oncology follow up/reschedule. PCP/[facility] f/u within 1 week of discharge. Plan of care has been d/w Dr. Corral who is in agreement. 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 Pt difficult to understand without dentures, but oriented and pleasant. He is fatigued appearing and states last night he had a lot of trouble sleeping. He states he would wake up often last night and toss and turn throughout the night but did not have any pain. He states he did have chills yesterday into today. He states he has also had a dry cough the last few weeks. He denies chest pain or SOB. He states he has not had any abdominal pain the last few days and other than chills and the pesky cough has been feeling generally fine. He states he lives on his own and is independent with ADLs. He states that he took himself to his urology appt earlier today. No complaints at the current moment other than feeling cold. Discharge Exam GENERAL: 84 yo elderly WM. A&O x3, pleasant/cooperative, no distress. LUNGS: Nonlabored, few scattered exp wheezes. No rhonchi/rales CARDIOVASCULAR: Regular rate and rhythm ABDOMEN: Soft, non-tender and non-distended. BS normoactive x 4 quad. : Gore in place, draining cloudy urine with some sediment, no gross hematuria EXTREMITIES: No edema. Non-tender. Peripheral pulses +2/4. SKIN: Warm, dry, intact. No rashes or lesions. Discharge Plan Discharge Items Patient Disposition: Home - Self-Care Reason For Visit: LIDIA, URINARY OBSTR Discharge Diagnosis: Acute renal failure due to blockage Activity: Resume your previous activity Activity Comment: User walker at all times Non-emergency contact: Primary Care Provider, Oncologist and Urologist Call non-emergency contact if: you have any medication questions and your symptoms worsen Follow-up/Referrals: Norberto Alvarenga MD [Physician] - (Call to reschedule appointment and Zoladex injection. Please call [phone] option #4 to reschedule) [facility] [Primary Care Provider] - Diet: Regular Addtl Attending Provider Instructions: You were hospitalized due to a blockage in the flow of urine that was causing your kidneys not to work properly. In the hospital, your catheter was changed and you were given IV fluids. Your renal function has improved significantly. You were also found to have bacteria growing in your blood. You are being discharged on an antibiotic called Levaquin which you will take on Monday 08/27 with dinner and Wednesday 08/29 with dinner. You will need to contact Dr. Alvarenga's ([facility]) office to schedule a follow up for your Zoladex injections due to missing your appointment on 08/25. The hospital will be in contact with you to arrange for a follow up with [facility]. You will need to set up a follow up appointment with the [place] for hospital follow up. Use your walker at all times when ambulating throughout your home. Call 911 or go to the ER in the event of a medical emergency. Pending Studies at Discharge: No Stand-Alone Forms: My [employer], Smoking Cessation Medications and DC Order Prescriptions: New levofloxacin 750 mg tablet 750 mg PO Q48H Qty: 2 0RF Rx Instructions: Take on Monday 08/27 and Wednesday 08/29 Continued albuterol sulfate 90 mcg/actuation HFA aerosol inhaler 2 puff INHALATION Q6 PRN (Reason: brochospasm) Stiolto Respimat 2.5-2.5 mcg/actuation mist 1 puff INHALATION DAILY [id number] oil 720-1,200 mg Capsule 1 cap PO DAILY coenzyme Q10 100 mg Capsule 100 mg PO BID magnesium oxide 250 mg magnesium Tablet 250 mg PO HS magnesium oxide 400 mg magnesium Capsule 400 mg PO QAM cyanocobalamin (vitamin B-12) [Vitamin B-12] 500 mcg Tablet 500 mcg PO DAILY bilberry 100 mg Capsule 100 mg PO DAILY multivitamin with minerals Tablet 1 tab PO DAILY flaxseed Powder 1 ea PO DAILY alpha lipoic acid 300 mg Capsule 300 mg PO DIRECTED PRN (Reason: NEEDED PER [facility]) turmeric 400 mg Capsule 400 mg PO DAILY berberine [id number]-ryyhlzc-bezhq 500 mg-250 mg- 7.5 mcg Capsule 1 cap PO DAILY Kefir 1 dose PO DAILY Ijy-J-Kqrpav Cysteine Tablet 1 tab PO DAILY Discharge Orders: Discharge Order (Routine); Ordered 08/27/25 Ordered By: Gunjan Ayala Admission Data Admit Date/Time: 08/23/25 17:11 Attending Provider: Audrey Corral Admit Provider: Shonda Orellana Primary Care Provider: [facility] Other Providers: Jameel Leger; Gonzales Sanchez Other Interventions: Discharge Summary Assessment (RN) Last Done: 08/27/25 10:53 Hospital Stay Data Consultations 08/23/25 15:18 ED Decision to Admit Stat 08/23/25 18:37 Consult Urology Routine 08/25/25 10:50 Consult Infectious Diseases Routine Diagnostic Imagining Performed 08/24/25 10:15 US renal/blad retro comp Routine Pending Results Patient Have Any Pending Studies at Discharge: No Discharge Instructions Given to Patient (Per Discharging Provider) You were hospitalized due to a blockage in the flow of urine that was causing your kidneys not to work properly. In the hospital, your catheter was changed and you were given IV fluids. Your renal function has improved significantly. You were also found to have bacteria growing in your blood. You are being discharged on an antibiotic called Levaquin which you will take on Monday 08/27 with dinner and Wednesday 08/29 with dinner. You will need to contact Dr. Alvarenga's ([facility] office to schedule a follow up for your Zoladex injections due to missing your appointment on 08/25. The hospital will be in contact with you to arrange for a follow up with [facility] group. You will need to set up a follow up appointment with the [place] for hospital follow up. Use your walker at all times when ambulating throughout your home. Call 911 or go to the ER in the event of a medical emergency. Supervising Physician Co-Signing Physician Notes PA Supervision Note: I did not personally see or examine the patient today, but I verified all chinchilla points of BENEDICTO Ayala's assessment and plan with the following exceptions/additions: None Total Time Total Time Spent Total Time Spent (In Minutes): 35 minutes Coding Level of Care Code 48549 INP/OBS DISCH >30 MIN Diagnoses Bladder outlet obstruction N32.0 Prostate cancer C61 Wide-complex tachycardia R00.0 LIDIA (acute kidney injury) N17.9 UTI (urinary tract infection) N39.0 Cough R05.9"
[2025-08-27 10:56] VITALS: PULSE 94
== END 2025-08-27 12:20 | disposition home or self-care (01) | DRG 699 ==
LOC: SUATTDRO → ED 13:42 → 2W 17:11 → 3N 08-26 03:24